=== PATIENT | male | born 1940 | race Caucasian/White ===

== ENCOUNTER 2021-01-29 09:02 | Outpatient (CLI) | payer MEDICARE, OTHER | END 2021-01-29 09:03 | disposition EMS.NT | LOC: EMS 09:02 | DX: R05 Cough (principal); R53.83 Other fatigue; R19.7 Diarrhea, unspecified; Z20.822 Contact with and (suspected) exposure to COVID-19 ==

== ENCOUNTER 2021-01-29 15:43 | Outpatient (CLI) | payer MEDICARE, OTHER | END 2021-01-29 15:44 | disposition critical access hospital (66) | LOC: EMS 15:43 | DX: R50.9 Fever, unspecified (principal); R05 Cough; R53.83 Other fatigue; R19.7 Diarrhea, unspecified; Z20.822 Contact with and (suspected) exposure to COVID-19 | CPT/HCPCS: A0425; A0427 ==

== ENCOUNTER 2021-01-29 16:06 | Inpatient (IN) | payer MEDICARE, OTHER ==
[2021-01-29] MEDS ORDERED: ONDANSETRON 4 MG/2 ML VIAL IVP STA (16:15)
[2021-01-29] MEDS ORDERED: DEXAMETHASONE 10 MG/ML VIAL IVP STA (16:15)
--- NOTE | 2021-01-29 16:15 | ED Physician Documentation ---
PD HPI DYSPNEA - Stated complaint Stated Complaint: C+/COUGH - History obtained from History obtained from: Patient - Additional information Additional information: Mr. Philippe is an 80-year-old gentleman originally from the [place] but c urrently lives in [facility]. He was immunized back in July with Mariano & Mariano vaccine. Presents today with likely Covid as his whole family has it. He has not been formally tested. Has been symptomatic for 5 days with shortness of breath, nausea, aches, inability to eat and poor appetite. He is so weak now that he can barely get up and go to the bathroom. He has a history of CHF but is not currently taking any medications for it. Review of Systems Ten Systems: 10 systems reviewed and negative Constitutional: reports: Fever, Chills, Myalgias, Fatigue Cardiac: denies: Chest pain / pressure, Palpitations Respiratory: reports: Dyspnea, Cough. denies: Hemoptysis, Wheezing PD PAST MEDICAL HISTORY - Past Medical History Past Medical History: Yes Cardiovascular: Congestive heart failure - Present Medications Home Medications: Ambulatory Orders Medication Instructions Recorded Confirmed No Known Home Medications 01/29/21 01/29/21 - Allergies Allergies/Adverse Reactions: Allergies Allergy/AdvReac Type Severity Reaction Status Date / Time vancomycin Allergy Rash Verified 01/29/21 16:11 - Living Situation Living Situation: reports: With spouse/s.o. - Social History Does the pt smoke?: No Does the pt have substance abuse?: No - Family History Family history: reports: Non contributory PD ED PE NORMAL - Vitals Vital signs reviewed: Yes (Febrile and hypoxemic) - General General: Alert and oriented X 3, Other (appears ill, weak) - HEENT HEENT: PERRL, EOMI - Neck Neck: Supple, no meningeal sign, No bony TTP - Cardiac Cardiac: RRR, No murmur - Respiratory Respiratory: No respiratory distress, Clear bilaterally - Abdomen Abdomen: Non tender - Back Back: No CVA TTP, No spinal TTP - Derm Derm: Normal color, Warm and dry - Neuro Neuro: Alert and oriented X 3, Normal speech - Psych Psych: Normal mood, Normal affect Results - Vitals Vitals: Vital Signs - 24 hr 01/29/21 01/29/21 16:12 16:18 Temperature 38.7 C H Heart Rate 60 65 Respiratory 22 17 Rate Blood Pressure 127/89 H 109/60 O2 Saturation 89 L 96 Oxygen O2 Source Nasal cannula Oxygen Flow Rate 2 - EKG (time done) 1621 Rate: Rate (enter#) (60) Rhythm: Atrial fibrillation [place]: LAD QRS: Normal Ischemia: Non specific changes. No: ST elevation c/w ischemia, ST depression - Labs Labs: Laboratory Tests 01/29/21 01/29/21 01/29/21 16:35 16:35 16:35 WBC 5.3 RBC 4.07 L Hgb 13.8 L Hct 40.2 L MCV 98.8 H MCH 33.9 H MCHC 34.3 RDW 13.0 Plt Count 142 MPV 10.1 Neut # (Auto) 4.3 Lymph # (Auto) 0.7 L [place] # (Auto) 0.3 Eos # (Auto) 0.0 Baso # (Auto) 0.0 Absolute Nucleated RBC 0.00 Nucleated RBC % 0.0 D-Dimer 348.8 H Sodium 133 L Potassium 3.9 Chloride 94 L Carbon Dioxide 27 Anion Gap 12.0 BUN 42 H Creatinine 1.2 Estimated GFR (MDRD) 58 L Glucose 118 H Lactic Acid Calcium 8.9 Total Bilirubin 0.6 AST 59 H ALT 27 Alkaline Phosphatase 37 L Total Protein 7.2 Albumin 3.7 Globulin 3.5 Albumin/Globulin Ratio 1.1 Nasal Adenovirus (PCR) Nasal B. parapertussis DNA (PCR) Nasal Coronavir 229E PCR Nasal Coronavir HKU1 PCR Nasal Coronavir NL63 PCR Nasal Coronavir OC43 PCR Nasal Enterovir/Rhinovir PCR Nasal Influenza B PCR Nasal Parainfluen 1 PCR Nasal Parainfluen 2 PCR Nasal Parainfluen 3 PCR Nasal Parainfluen 4 PCR Nasal RSV (PCR) Nasal B.pertussis DNA PCR Nasal C.pneumoniae (PCR) Aaron Human Metapneumo PCR Nasal M.pneumoniae (PCR) Nasal SARS-CoV-2 (PCR) 01/29/21 01/29/21 16:35 16:43 WBC RBC Hgb Hct MCV MCH MCHC RDW Plt Count MPV Neut # (Auto) Lymph # (Auto) [place] # (Auto) Eos # (Auto) Baso # (Auto) Absolute Nucleated RBC Nucleated RBC % D-Dimer Sodium Potassium Chloride Carbon Dioxide Anion Gap BUN Creatinine Estimated GFR (MDRD) Glucose Lactic Acid 1.8 Calcium Total Bilirubin AST ALT Alkaline Phosphatase Total Protein Albumin Globulin Albumin/Globulin Ratio Nasal Adenovirus (PCR) NOT DETECTED Nasal B. parapertussis DNA (PCR) NOT DETECTED Nasal Coronavir 229E PCR NOT DETECTED Nasal Coronavir HKU1 PCR NOT DETECTED Nasal Coronavir NL63 PCR NOT DETECTED Nasal Coronavir OC43 PCR NOT DETECTED Nasal Enterovir/Rhinovir PCR NOT DETECTED Nasal Influenza B PCR NOT DETECTED Nasal Parainfluen 1 PCR NOT DETECTED Nasal Parainfluen 2 PCR NOT DETECTED Nasal Parainfluen 3 PCR NOT DETECTED Nasal Parainfluen 4 PCR NOT DETECTED Nasal RSV (PCR) NOT DETECTED Nasal B.pertussis DNA PCR NOT DETECTED Nasal C.pneumoniae (PCR) NOT DETECTED Aaron Human Metapneumo PCR NOT DETECTED Nasal M.pneumoniae (PCR) NOT DETECTED Nasal SARS-CoV-2 (PCR) DETECTED A - Rads (name of study) 1v chest Radiology: EMP read contemporaneously (patchy bilateral infiltrates c/w covid pna) PD MEDICAL DECISION MAKING - ED course ED course: 80-year-old gentleman with heavy contact to Covid presents with typical symptoms and hypoxemia. He was immunized, with Mariano & Mariano back in July. He was given Decadron and Zofran here. Chest x-ray typical for Covid. Spoke with Dr. Rojas for admission given hypoxemia at 5:10 PM. Departure - Departure Disposition: 66 [facility] DC/Xfer Clinical Impression: COVID-19, Hypoxemia Condition: Serious
[2021-01-29 16:44] LABS: BASOPHILS % (AUTO) 0.2 %; HCT - HEMATOCRIT 40.2 % (42.0-52.0); HGB - HEMOGLOBIN 13.8 g/dL (14.0-18.0); LYMPHOCYTES # (AUTO) 0.7 10^3/uL (1.5-3.5); LYMPHOCYTES % (AUTO) 12.9 %; MEAN CORPUSCULAR HEMOGLOBIN 33.9 pg (27.0-31.0); MEAN CORPUSCULAR HGB CONC 34.3 g/dL (32.0-36.0); MEAN CORPUSCULAR VOLUME 98.8 fL (80.0-94.0); MEAN PLATELET VOLUME 10.1 fL (7.4-11.4); MONOCYTES # (AUTO) 0.3 10^3/uL (0.0-1.0); MONOCYTES % (AUTO) 4.8 %; NEUTROPHILS # (AUTO) 4.3 10^3/uL (1.5-6.6); NEUTROPHILS % (AUTO) 81.7 %; PLT - PLATELET COUNT 142 10^3/uL (130-450); RED BLOOD COUNT 4.07 10^6/uL (4.70-6.10); WHITE BLOOD COUNT 5.3 x10^3/uL (4.8-10.8)
[2021-01-29] MEDS ORDERED: ACETAMINOPHEN 325 MG TABLET PO STA (16:44)
[2021-01-29 16:52] LABS: ALBUMIN 3.7 g/dL (3.2-5.5); ALBUMIN/GLOBULIN RATIO 1.1 (1.0-2.2); BILIRUBIN,TOTAL 0.6 mg/dL (0.2-1.0); CALCIUM 8.9 mg/dL (8.5-10.3); CREATININE 1.2 mg/dL (0.6-1.2); POTASSIUM 3.9 mmol/L (3.5-5.0); TOTAL PROTEIN 7.2 g/dL (6.7-8.2)
--- NOTE | 2021-01-29 16:55 | XRAY Report ---
PROCEDURE: Chest 1 View X-Ray INDICATIONS: dyspnea TECHNIQUE: One view of the chest was acquired. COMPARISON: None FINDINGS: Surgical changes and devices: None. Lungs and pleura: No pleural effusions or pneumothorax. Patchy bilateral interstitial type infiltra jg are seen. Mediastinum: The aorta is prominent and tortuous. The cardiac contours are within normal limits. Bones and chest wall: No suspicious bony lesions. Age-appropriate degenerative changes are seen. Overlying soft tissues appear unremarkable. IMPRESSION: Bilateral patchy infiltrates are seen, which are consistent with the known clinical history of COVID pneumonia. Reviewed by: Edmund Hahn MD on 01/29/2021 3:54 PM [facility] Approved by: Edmund Hahn MD on 01/29/2021 3:54 PM [facility] Station ID: [id number]
[2021-01-29] MEDS ORDERED: ONDANSETRON ODT 4 MG TABLET TL PRN (17:09)
[2021-01-29] MEDS ORDERED: PROCHLORPERAZINE 10 MG/2 ML VIAL IVP PRN (17:09)
[2021-01-29] MEDS ORDERED: ONDANSETRON 4 MG/2 ML VIAL IVP PRN (17:09)
[2021-01-29] MEDS ORDERED: NON FORMULARY MED (Remdesivir 200 MG) IVP ONE (17:12)
[2021-01-29] MEDS ORDERED: ALBUTEROL NEB 2.5 MG/3 ML INH PRN (17:13)
[2021-01-29 17:50] LABS: CORONAVIRUS 229E-RESP PCR NOT DETECTED; CORONAVIRUS HKU1-RESP PCR NOT DETECTED; CORONAVIRUS NL63-RESP PCR NOT DETECTED; CORONAVIRUS OC43-RESP PCR NOT DETECTED
[2021-01-29 17:52] LABS: B. PARAPERTUSSIS- RESP PCR PAN NOT DETECTED; B. PERTUSSIS- RESP PCR PANEL NOT DETECTED; C. PNEUMONIAE- RESP PCR PANEL NOT DETECTED; HUMAN METAPNEUMOVIRUS NOT DETECTED; INFLUENZA B - RESP PCR PANEL NOT DETECTED; M. PNEUMONIAE- RESP PCR PANEL NOT DETECTED; PARAINFLUENZA VIRUS 1 NOT DETECTED; PARAINFLUENZA VIRUS 2 NOT DETECTED; PARAINFLUENZA VIRUS 3 NOT DETECTED; PARAINFLUENZA VIRUS 4 NOT DETECTED; RHINOVIRUS/ENTEROVIRUS NOT DETECTED; RSV- RESP PCR PANEL NOT DETECTED; SARS-CoV-2 -RESP PCR PANEL DETECTED
[2021-01-29] MEDS ORDERED: LACTATED RINGERS 1,000 ML IV SCH (18:00)
[2021-01-29] MEDS ORDERED: LACTATED RINGERS 1,000 ML IV ONE (18:12)
[2021-01-29] MEDS: SODIUM CHLORIDE FLUSH 0.9% 10 ML SYRINGE IVP PRN (18:39)
--- NOTE | 2021-01-29 18:55 | HISTORY & PHYSICAL EXAMINATION ---
Chief Complaint - Chief Complaint Chief Complaint: cough and sob History of Present Illness - Admitted From Admitted From:: Nephew's house - History Obtained From Records Reviewed: [facility] History obtained from: Patient Exam Limitations: none - History of Present Illness HPI Comment/Other: He says that he is completely healthy and has no major medical issues. His blood pressure tends to run low. He does not even take any medicines. His primary care provider is Gómez Shelby who is in private practice with his Susan. They are out of [facility]. They drove her from [place] to see his 's family. His [id number] and [id number] live in [place]. They did not send any hotels in the drove straight through. Stopped only to get past to 3 windows. They arrived at their ytxbve-hh-lov's house and were doing well until 7 days ago. His became ill first. Then he did 5 days ago. Cough, fever, myalgias, shortness of breath. Lack of appetite. No smell. Now all of them are sick. Both brother and dcobrt-tf-zxi. , nephew. He is so weak that he can barely get up and go to the bathroom. "I never felt like an old man until now". He has been vaccinated with Mariano and Mariano back in July of this year. There is been no change in bowel habits. There is no diarrhea. There is no hemoptysis. No flank pain, urgency, frequency, dysuria or hematuria. In the emergency room his temperature was 38.7. Heart rate 60. Respirations 22. Blood pressure 127/89. He is 89% saturated on room air. His lungs are clear bilaterally. He is in atrial fibrillation. White cell count is 5.3. Hemoglobin 13.8. D-dimer is 348. Sodium 133. BUN 42, creatinine 1.2. AST is 59. SARS COVID-19 is detected. Chest x-ray has patchy bilateral infiltrates consistent with known clinical history of Covid pneumonia. In the emergency room he received Decadron and Zofran. History - Past Medical History Cardiovascular: reports: Congestive heart failure - Family & Social History Family History Comment/Other: His mother at age 96 with every "known ill man in the world. Father at age 80 with no illness whatsoever. He thought that was very ironic. 3 brothers and 1 sister. 1 brother is from prostate cancer. The other siblings are alive and well in the [place] without any major medical illnesses much like him. 3 children from his first . They all live in the [place]. They are healthy. Living arrangement: At home Living Situation: With spouse/s.o. Social History Notes: He was born and raised in the [place]. Came to the [place] with his first . That marriage did not last but he did have 3 children with her. He remarried and went back to the [place] but his was so miserable without her family and daughter nearby that they came back to [facility]. 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 They eventually ended up living in [facility]. He never had a history of alcohol abuse. No history of recreational substance abuse. Started smoking around the age of 12 and quit in 1970 and no more than half a pack per day. - Substance History Use: Uses substance without health or social issues: NONE Abuse: Recurrent use of substance despite neg consequences: NONE Dependence: Experiences withdrawal or developed tolerances: NONE - POLST Patient has POLST: No POLST Status: Full Code Meds/Allgy - Home Medications Home Medications: Ambulatory Orders Medication Instructions Recorded Confirmed No Known Home Medications 01/29/21 01/29/21 - Allergies Allergies/Adverse Reactions: Allergies Allergy/AdvReac Type Severity Reaction Status Date / Time vancomycin Allergy Rash Verified 01/29/21 16:11 Review of Systems - Other Findings Other Findings: 13 point review of systems done as in our EMR template. Only pertinent positives are in the history of present illness Prior Level of Functionality: Completely independent. He states that he does not use durable medical equipment. Drives. Pays bills. Helps his clean house. Cooks, cleans. He is very distressed at how weak and ill he is right now. Exam - Vital Signs Reviewed Vital Signs: Yes Vital Signs: Vital Signs x48h Temp Pulse Pulse Resp BP BP Pulse Ox 01/29/21 18:13 36.8 C 64 24 108/70 96 01/29/21 18:00 38.5 C H 75 17 99/65 95 01/29/21 16:18 65 17 109/60 96 01/29/21 16:12 38.7 C H 60 22 127/89 H 89 L - Physical Exam General Appearance: positive: Alert, Mild distress (From chills, and severe fatigue. He can barely sit up and help the nurse take off his shoes), Other (Tall lanky white male who looks stated age) Eyes Bilateral: positive: PERRL, EOMI ENT: positive: No signs of dehydration, Other (Rhinorrhea, postnasal drip) Neck: positive: No JVD. negative: Stiff neck Respiratory: positive: No respiratory distress, Rales (Fine rales in the right midlung field and left lower lung base. But no increased respiratory effort. No cough.) Cardiovascular: positive: Regular rate & rhythm, Systolic murmur. negative: Gallop/S4, Friction rub Peripheral Pulses: positive: 1+ Abdomen: positive: Non-tender, No organomegaly, Nml bowel sounds, No distention Skin: positive: Warm, Dry, Pallor Extremities: positive: Full ROM, No pedal edema (But he has large ropey varicose veins of the lower extremity. No venous stasis changes) Neurologic/Psychiatric: positive: Oriented x3, CN's nml (2-12), Motor nml, Sensa tion nml Conclusion/Plan - Problem List (1) COVID-19 Conclusion/Plan: An unvaccinated gentleman who has no major medical issues except a remote history of congestive heart failure that he takes no medicines for. Plan: Inpatient status Remdesivir protocol Decadron DVT prophylaxis Antipyretics and antiemetics as needed (2) Hypoxemia Conclusion/Plan: Supplemental nasal cannula oxygen. He is a full code. If need be we will progress to BiPAP and intubation - Lab Results Lab results reviewed: Yes Fish Bones: 01/29/21 16:35 01/29/21 16:35 - Diagnostic Imaging Results Diagnostic Imaging Results: positive: Final report reviewed Diagnostic Imaging Results Comments: Report as in history of present illness Core Measures - Anticipated LOS I expect patient to be DC'd or transferred within 96 hours.: Yes - DVT/VTE - Prophylaxis VTE/DVT Device ordered at admit?: Yes
[2021-01-29] MEDS ORDERED: REMDESIVIR 100MG VIAL 200 MG in SODIUM CHLORIDE 0.9% 250 ML IV ONE (19:00)
[2021-01-30] MEDS: BENZOCAINE/MENTHOL LOZENGE MM PRN ×2 (04:46→04:54)
[2021-01-30] MEDS: SODIUM CHLORIDE FLUSH 0.9% 10 ML SYRINGE IVP SCH ×3 (05:53→23:35)
[2021-01-30 06:15] LABS: BASOPHILS % (AUTO) 0.2 %; HCT - HEMATOCRIT 39.2 % (42.0-52.0); HGB - HEMOGLOBIN 13.1 g/dL (14.0-18.0); LYMPHOCYTES # (AUTO) 0.5 10^3/uL (1.5-3.5); LYMPHOCYTES % (AUTO) 9.8 %; MEAN CORPUSCULAR HEMOGLOBIN 32.9 pg (27.0-31.0); MEAN CORPUSCULAR HGB CONC 33.4 g/dL (32.0-36.0); MEAN CORPUSCULAR VOLUME 98.5 fL (80.0-94.0); MEAN PLATELET VOLUME 10.1 fL (7.4-11.4); MONOCYTES # (AUTO) 0.2 10^3/uL (0.0-1.0); MONOCYTES % (AUTO) 4.5 %; NEUTROPHILS # (AUTO) 4.5 10^3/uL (1.5-6.6); NEUTROPHILS % (AUTO) 85.3 %; PLT - PLATELET COUNT 129 10^3/uL (130-450); RED BLOOD COUNT 3.98 10^6/uL (4.70-6.10); WHITE BLOOD COUNT 5.3 x10^3/uL (4.8-10.8)
[2021-01-30 06:30] LABS: CALCIUM 8.2 mg/dL (8.5-10.3); CRP - C-REACTIVE PROTEIN 10.6 mg/dL (0-1.0); POTASSIUM 4.2 mmol/L (3.5-5.0)
--- NOTE | 2021-01-30 06:59 | PHARMACY PROGRESS NOTE ---
- Best Possible Medication History Admit Date and Time: 01/29/21 6800 Processed by: Nursing Medication History completed: Yes Patient Interview: Completed As the person ultimately responsible for medication therapy, providers are able to order a medication from an existing home medication list in [facility] via the "Reconcile Routine" prior to Confirmation of that medication by direct support professional caregiver. Such practice is discouraged except when the physician, in their clinical judg ment, deems that a medical need exists for a medication without regard to previous use.
[2021-01-30] MEDS: ALBUTEROL 1 PUFF INH PRN ×4 (08:48→18:48)
[2021-01-30] MEDS: DEXAMETHASONE 4 MG/ML VIAL IVP SCH (09:32)
[2021-01-30] MEDS: ENOXAPARIN 40 MG/0.4 ML SYRINGE SUBQ SCH (09:32)
[2021-01-30] MEDS: REMDESIVIR 100MG VIAL 100 MG in SODIUM CHLORIDE 0.9% 100ML 100 ML IV SCH (09:33)
--- NOTE | 2021-01-30 14:10 | PROVIDER PROGRESS NOTE ---
Subjective - Prog Note Date Prog Note Date: 01/30/21 Prog Note Time: 14:08 - Subjective Pt reports feeling: No change Subjective: He is very dismayed at how weak and tired he is. No appetite. On review of systems still has shortness of breath, weakness, fatigue, but no fever since yesterday. No or GI complaints other than anorexia. Denies chest pain. Pedal edema. He was on 3 L nasal cannula when he first came to [facility]. By late evening into the academic coach hours of today he is on 2 L. Current Medications - Current Medications Current Medications: Active Medications Acetaminophen (Acetaminophen 325 Mg Tablet) 650 mg PO Q4HR PRN PRN Reason: Pain 1 to 4 Albuterol (Albuterol 1 Puff) 2 puffs INH Q4HR PRN PRN Reason: Wheezing Last Admin: 01/30/21 11:28 Dose: 2 puffs Documented by: Dexamethasone (Dexamethasone 4 Mg/Ml Vial) 6 mg IVP DAILY [facility] Last Admin: 01/30/21 09:32 Dose: 6 mg Documented by: Enoxaparin Sodium (Enoxaparin 40 Mg/0.4 Ml Syringe) 40 mg SUBQ DAILY [facility] Last Admin: 01/30/21 09:32 Dose: 40 mg Documented by: Remdesivir 100 mg/ Sodium (Chloride) 100 mls @ 200 mls/hr IV DAILY [facility] Stop: 02/02/21 09:29 Last Admin: 01/30/21 09:33 Dose: 200 mls/hr Documented by: Ondansetron HCl (Ondansetron Odt 4 Mg Tablet) 4 mg TL Q6HR PRN PRN Reason: Nausea / Vomiting Ondansetron HCl (Ondansetron 4 Mg/2 Ml Vial) 4 mg IVP Q6HR PRN PRN Reason: Nausea / Vomiting Oxycodone HCl (Oxycodone 5 Mg Tablet) 5 mg PO Q4HR PRN PRN Reason: Pain 5 to 7 Prochlorperazine Edisylate (Prochlorperazine 10 Mg/2 Ml Vial) 10 mg IVP Q6HR PRN PRN Reason: Nausea / Vomiting Sodium Chloride (Sodium Chloride Flush 0.9% 10 Ml Syringe) 10 ml IVP PRN PRN PRN Reason: NEEDED PER PROVIDER ORDERS Last Admin: 01/29/21 18:39 Dose: 10 ml Documented by: Sodium Chloride (Sodium Chloride Flush 0.9% 10 Ml Syringe) 10 ml IVP 0100,0900,1700 GEORGIE Last Admin: 01/30/21 09:35 Dose: 10 ml Documented by: Throat Lozenges (Benzocaine/Menthol Lozenge) 1 lozenge MM Q2HR PRN PRN Reason: Throat pain Last Admin: 01/30/21 04:54 Dose: 1 lozenge Documented by: No Known Home Medications 01/29/21 Objective - Vital Signs/Intake & Output Reviewed Vital Signs: Yes Vital Signs: Vital Signs x48h Temp Pulse Pulse Resp BP Pulse Ox 01/30/21 11:29 66 20 01/30/21 09:43 36.5 C 70 22 128/81 H 94 01/30/21 08:51 74 18 Intake & Output: Intake & Output 01/27/21 01/28/21 01/29/21 01/30/21 23:59 23:59 23:59 23:59 Intake Total 613.333 530 Output Total 50 Balance 563.333 530 - Objective General Appearance: positive: Alert, Other (78 kg, 6 foot tall. Fatigued appearing elderly gentleman.) Eyes Bilateral: positive: PERRL, EOMI ENT: positive: No signs of dehydration Neck: positive: No JVD. negative: Stiff neck Respiratory: positive: No respiratory distress, Rales. negative: Wheezes, Rhonchi Cardiovascular: positive: Regular rate & rhythm, Systolic murmur. negative: Gallop/S4, Friction rub Abdomen: positive: Non-tender, No organomegaly, Nml bowel sounds, No distention Skin: positive: Warm, Dry, Pallor Extremities: positive: Full ROM, No pedal edema Neurologic/Psychiatric: positive: Oriented x3, CN's nml (2-12), Motor nml - Lab Results Fish Bones: 01/30/21 05:57 01/30/21 05:57 Other Labs: Lab Results x24hrs 01/30/21 01/30/21 01/29/21 Range/Units 05:57 05:57 16:43 WBC 5.3 (4.8-10.8) x10^3/uL RBC 3.98 L (4.70-6.10) 10^6/uL Hgb 13.1 L (14.0-18.0) g/dL Hct 39.2 L (42.0-52.0) % MCV 98.5 H (80.0-94.0) fL MCH 32.9 H (27.0-31.0) pg MCHC 33.4 (32.0-36.0) g/dL RDW 13.0 (12.0-15.0) % Plt Count 129 L (130-450) 10^3/uL MPV 10.1 (7.4-11.4) fL Neut # (Auto) 4.5 (1.5-6.6) 10^3/uL Lymph # (Auto) 0.5 L (1.5-3.5) 10^3/uL [place] # (Auto) 0.2 (0.0-1.0) 10^3/uL Eos # (Auto) 0.0 (0.0-0.7) 10^3/uL Baso # (Auto) 0.0 (0.0-0.1) 10^3/uL Absolute Nucleated RBC 0.00 x10^3/uL Nucleated RBC % 0.0 /100WBC D-Dimer (200.0-255.0) ng/mL Sodium 132 L (135-145) mmol/L Potassium 4.2 (3.5-5.0) mmol/L Chloride 98 L (101-111) mmol/L Carbon Dioxide 24 (21-32) mmol/L Anion Gap 10.0 (6-13) BUN 37 H (6-20) mg/dL Creatinine 1.0 (0.6-1.2) mg/dL Estimated GFR (MDRD) 72 L (>89) Glucose 157 H (70-100) mg/dL Lactic Acid (0.5-2.2) mmol/L Calcium 8.2 L (8.5-10.3) mg/dL Total Bilirubin (0.2-1.0) mg/dL AST (10-42) IU/L ALT (10-60) IU/L Alkaline Phosphatase (42-121) IU/L C-Reactive Protein 10.6 H (0-1.0) mg/dL Total Protein (6.7-8.2) g/dL Albumin (3.2-5.5) g/dL Globulin (2.1-4.2) g/dL Albumin/Globulin Ratio (1.0-2.2) Nasal Adenovirus (PCR) NOT DETECTED Nasal B. parapertussis DNA (PCR) NOT DETECTED Nasal Coronavir 229E PCR NOT DETECTED Nasal Coronavir HKU1 PCR NOT DETECTED Nasal Coronavir NL63 PCR NOT DETECTED Nasal Coronavir OC43 PCR NOT DETECTED Nasal Enterovir/Rhinovir PCR NOT DETECTED Nasal Influenza B PCR NOT DETECTED Nasal Parainfluen 1 PCR NOT DETECTED Nasal Parainfluen 2 PCR NOT DETECTED Nasal Parainfluen 3 PCR NOT DETECTED Nasal Parainfluen 4 PCR NOT DETECTED Nasal RSV (PCR) NOT DETECTED Nasal B.pertussis DNA PCR NOT DETECTED Nasal C.pneumoniae (PCR) NOT DETECTED Aaron Human Metapneumo PCR NOT DETECTED Nasal M.pneumoniae (PCR) NOT DETECTED Nasal SARS-CoV-2 (PCR) DETECTED A 01/29/21 01/29/21 01/29/21 Range/Units 16:35 16:35 16:35 WBC (4.8-10.8) x10^3/uL RBC (4.70-6.10) 10^6/uL Hgb (14.0-18.0) g/dL Hct (42.0-52.0) % MCV (80.0-94.0) fL MCH (27.0-31.0) pg MCHC (32.0-36.0) g/dL RDW (12.0-15.0) % Plt Count (130-450) 10^3/uL MPV (7.4-11.4) fL Neut # (Auto) (1.5-6.6) 10^3/uL Lymph # (Auto) (1.5-3.5) 10^3/uL [place] # (Auto) (0.0-1.0) 10^3/uL Eos # (Auto) (0.0-0.7) 10^3/uL Baso # (Auto) (0.0-0.1) 10^3/uL Absolute Nucleated RBC x10^3/uL Nucleated RBC % /100WBC D-Dimer 348.8 H (200.0-255.0) ng/mL Sodium 133 L (135-145) mmol/L Potassium 3.9 (3.5-5.0) mmol/L Chloride 94 L (101-111) mmol/L Carbon Dioxide 27 (21-32) mmol/L Anion Gap 12.0 (6-13) BUN 42 H (6-20) mg/dL Creatinine 1.2 (0.6-1.2) mg/dL Estimated GFR (MDRD) 58 L (>89) Glucose 118 H (70-100) mg/dL Lactic Acid 1.8 (0.5-2.2) mmol/L Calcium 8.9 (8.5-10.3) mg/dL Total Bilirubin 0.6 (0.2-1.0) mg/dL AST 59 H (10-42) IU/L ALT 27 (10-60) IU/L Alkaline Phosphatase 37 L (42-121) IU/L C-Reactive Protein (0-1.0) mg/dL Total Protein 7.2 (6.7-8.2) g/dL Albumin 3.7 (3.2-5.5) g/dL Globulin 3.5 (2.1-4.2) g/dL Albumin/Globulin Ratio 1.1 (1.0-2.2) Nasal Adenovirus (PCR) Nasal B. parapertussis DNA (PCR) Nasal Coronavir 229E PCR Nasal Coronavir HKU1 PCR Nasal Coronavir NL63 PCR Nasal Coronavir OC43 PCR Nasal Enterovir/Rhinovir PCR Nasal Influenza B PCR Nasal Parainfluen 1 PCR Nasal Parainfluen 2 PCR Nasal Parainfluen 3 PCR Nasal Parainfluen 4 PCR Nasal RSV (PCR) Nasal B.pertussis DNA PCR Nasal C.pneumoniae (PCR) Aaron Human Metapneumo PCR Nasal M.pneumoniae (PCR) Nasal SARS-CoV-2 (PCR) 01/29/21 Range/Units 16:35 WBC 5.3 (4.8-10.8) x10^3/uL RBC 4.07 L (4.70-6.10) 10^6/uL Hgb 13.8 L (14.0-18.0) g/dL Hct 40.2 L (42.0-52.0) % MCV 98.8 H (80.0-94.0) fL MCH 33.9 H (27.0-31.0) pg MCHC 34.3 (32.0-36.0) g/dL RDW 13.0 (12.0-15.0) % Plt Count 142 (130-450) 10^3/uL MPV 10.1 (7.4-11.4) fL Neut # (Auto) 4.3 (1.5-6.6) 10^3/uL Lymph # (Auto) 0.7 L (1.5-3.5) 10^3/uL [place] # (Auto) 0.3 (0.0-1.0) 10^3/uL Eos # (Auto) 0.0 (0.0-0.7) 10^3/uL Baso # (Auto) 0.0 (0.0-0.1) 10^3/uL Absolute Nucleated RBC 0.00 x10^3/uL Nucleated RBC % 0.0 /100WBC D-Dimer (200.0-255.0) ng/mL Sodium (135-145) mmol/L Potassium (3.5-5.0) mmol/L Chloride (101-111) mmol/L Carbon Dioxide (21-32) mmol/L Anion Gap (6-13) BUN (6-20) mg/dL Creatinine (0.6-1.2) mg/dL Estimated GFR (MDRD) (>89) Glucose (70-100) mg/dL Lactic Acid (0.5-2.2) mmol/L Calcium (8.5-10.3) mg/dL Total Bilirubin (0.2-1.0) mg/dL AST (10-42) IU/L ALT (10-60) IU/L Alkaline Phosphatase (42-121) IU/L C-Reactive Protein (0-1.0) mg/dL Total Protein (6.7-8.2) g/dL Albumin (3.2-5.5) g/dL Globulin (2.1-4.2) g/dL Albumin/Globulin Ratio (1.0-2.2) Nasal Adenovirus (PCR) Nasal B. parapertussis DNA (PCR) Nasal Coronavir 229E PCR Nasal Coronavir HKU1 PCR Nasal Coronavir NL63 PCR Nasal Coronavir OC43 PCR Nasal Enterovir/Rhinovir PCR Nasal Influenza B PCR Nasal Parainfluen 1 PCR Nasal Parainfluen 2 PCR Nasal Parainfluen 3 PCR Nasal Parainfluen 4 PCR Nasal RSV (PCR) Nasal B.pertussis DNA PCR Nasal C.pneumoniae (PCR) Aaron Human Metapneumo PCR Nasal M.pneumoniae (PCR) Nasal SARS-CoV-2 (PCR) ABX Reporting Has patient been on IV antibiotics over the past 48 hours?: No Assessment/Plan - Problem List (1) COVID-19 Impression: An unvaccinated gentleman who has no major medical issues except a remote history of congestive heart failure that he takes no medicines for. Plan: Remdesivir protocol Day #2/ Decadron #2/10 DVT prophylaxis to continue Antipyretics and antiemetics as needed (2) Hypoxemia Conclusion/Plan: Supplemental nasal cannula oxygen. He is a full code. If need be we will progress to BiPAP and intubation
[2021-01-31] MEDS ORDERED: diphenhydrAMINE INJ 50 MG/ML VIAL IVP STA (00:12)
[2021-01-31] MEDS: SODIUM CHLORIDE FLUSH 0.9% 10 ML SYRINGE IVP SCH ×3 (00:24→16:38)
[2021-01-31 05:32] LABS: BASOPHILS % (AUTO) 0.1 %; HCT - HEMATOCRIT 37.7 % (42.0-52.0); LYMPHOCYTES # (AUTO) 0.6 10^3/uL (1.5-3.5); LYMPHOCYTES % (AUTO) 7.1 %; MEAN CORPUSCULAR HEMOGLOBIN 33.5 pg (27.0-31.0); MEAN CORPUSCULAR HGB CONC 34.5 g/dL (32.0-36.0); MEAN CORPUSCULAR VOLUME 97.2 fL (80.0-94.0); MEAN PLATELET VOLUME 10.3 fL (7.4-11.4); MONOCYTES # (AUTO) 0.4 10^3/uL (0.0-1.0); NEUTROPHILS # (AUTO) 7.6 10^3/uL (1.5-6.6); NEUTROPHILS % (AUTO) 87.5 %; PLT - PLATELET COUNT 152 10^3/uL (130-450); RED BLOOD COUNT 3.88 10^6/uL (4.70-6.10); RED CELL DISTRIBUTION WIDTH 13.2 % (12.0-15.0); WHITE BLOOD COUNT 8.7 x10^3/uL (4.8-10.8)
[2021-01-31 05:51] LABS: CALCIUM 8.7 mg/dL (8.5-10.3); CRP - C-REACTIVE PROTEIN 10.4 mg/dL (0-1.0); POTASSIUM 4.3 mmol/L (3.5-5.0)
[2021-01-31] MEDS: ALBUTEROL 1 PUFF INH PRN (08:51)
[2021-01-31] MEDS: DEXAMETHASONE 4 MG/ML VIAL IVP SCH (09:32)
[2021-01-31] MEDS: ENOXAPARIN 40 MG/0.4 ML SYRINGE SUBQ SCH (09:34)
[2021-01-31] MEDS: REMDESIVIR 100MG VIAL 100 MG in SODIUM CHLORIDE 0.9% 100ML 100 ML IV SCH (09:39)
--- NOTE | 2021-01-31 19:25 | PROVIDER PROGRESS NOTE ---
Progress Note January 31, 2021 7:22 PM Weak, tired. Trying to eat Ensure. Does not have much appetite. He is on 4 L nasal cannula and maintaining O2 sats at anywhere between 91 to 93%. Otherwise denies chest pain, abdominal pain, back pain, leg pain. No nausea or sweats. Medications: Tylenol, albuterol, Decadron, Lovenox, Zofran, oxycodone, Compazi ne, remdesivir, Cepacol. Temperature is 36.3. Pulse is 67. Blood pressure 109/68. Respirations 18. Lean lanky tall gentleman. Alert, oriented. Moderately to severely deaf. Neck is supple with shotty adenopathy. Lungs are clear to auscultation and percussion other than diffuse occasional faint crackles. They disappear with deep cough and then return. Regular rate and rhythm. Not tachycardic. No increased respiratory effort with talking to me. Abdomen is soft, nontender. Extremities without edema. BMP is normal. Random glucose 145. C-reactive protein is staying the same as yesterday and is 10.4. Not much rejection. White cell count is 8.7 with a hemoglobin of 13. Platelets are 152. Assessment/plan COVID-19 pneumonia. He is remdesivir day 3 out of 5. He is on Decadron grade 3 out of 10. DVT prophylaxis continues. Antipyretics and antiemetics are being used as needed. Hypoxia continues to be supplemented with nasal cannula oxygen. He is a DO NOT RESUSCITATE. I thought he was a full code but he wants to make sure that we note that he is DO NOT RESUSCITATE and that was put in the chart.
[2021-02-01 05:34] LABS: BASOPHILS % (AUTO) 0.1 %; HCT - HEMATOCRIT 36.7 % (42.0-52.0); HGB - HEMOGLOBIN 12.2 g/dL (14.0-18.0); LYMPHOCYTES # (AUTO) 0.6 10^3/uL (1.5-3.5); LYMPHOCYTES % (AUTO) 7.6 %; MEAN CORPUSCULAR HEMOGLOBIN 32.5 pg (27.0-31.0); MEAN CORPUSCULAR HGB CONC 33.2 g/dL (32.0-36.0); MEAN CORPUSCULAR VOLUME 97.9 fL (80.0-94.0); MEAN PLATELET VOLUME 10.6 fL (7.4-11.4); MONOCYTES # (AUTO) 0.6 10^3/uL (0.0-1.0); MONOCYTES % (AUTO) 7.8 %; NEUTROPHILS # (AUTO) 6.9 10^3/uL (1.5-6.6); NEUTROPHILS % (AUTO) 84.1 %; PLT - PLATELET COUNT 175 10^3/uL (130-450); RED BLOOD COUNT 3.75 10^6/uL (4.70-6.10); RED CELL DISTRIBUTION WIDTH 13.3 % (12.0-15.0); WHITE BLOOD COUNT 8.2 x10^3/uL (4.8-10.8)
[2021-02-01 05:47] LABS: CALCIUM 8.7 mg/dL (8.5-10.3); CRP - C-REACTIVE PROTEIN 9.5 mg/dL (0-1.0); POTASSIUM 4.7 mmol/L (3.5-5.0)
[2021-02-01] MEDS: SODIUM CHLORIDE FLUSH 0.9% 10 ML SYRINGE IVP SCH ×3 (07:29→17:20)
--- NOTE | 2021-02-01 09:04 | PROVIDER PROGRESS NOTE ---
Assessment/Plan - Problem List (1) Acute respiratory failure with hypoxia Assessment/Plan: Secondary to COVID-19 pneumonia. Currently on 4 L of oxygen via nasal cannula with oxygen saturation at 91% Patient is on remdesivir the 4 out of 5. On Decadron day 4 out of 10. Continue DVT prophylaxis with Lovenox 40 mg subcu daily. (2) COVID-19 Assessment/Plan: Currently on 4 L of oxygen via nasal cannula with oxygen saturation at 91% Patient is on remdesivir the 4 out of 5. On Decadron day 4 out of 10. Continue DVT prophylaxis with Lovenox 40 mg subcu daily. - Current Meds Current Meds: Current Medications Generic Name Dose Route Start Last Admin Trade Name Freq PRN Reason Stop Dose Admin Albuterol 2 puffs 01/30/21 08:37 01/31/21 08:51 Albuterol 1 Puff INH 2 puffs Q4HR PRN Administration Wheezing Dexamethasone 6 mg 01/30/21 09:00 01/31/21 09:32 Dexamethasone 4 Mg/Ml Vial IVP 6 mg DAILY GEORGIE Administration Enoxaparin Sodium 40 mg 01/30/21 09:00 01/31/21 09:34 Enoxaparin 40 Mg/0.4 Ml Syringe SUBQ 40 mg DAILY GEORGIE Administration Remdesivir 100 mg/ Sodium 100 mls @ 200 mls/hr 01/30/21 09:00 01/31/21 10:20 Chloride IV 02/02/21 09:29 Infused DAILY GEORGIE Infusion Ondansetron HCl 4 mg 01/29/21 17:09 01/30/21 22:04 Ondansetron Odt 4 Mg Tablet TL 4 mg Q6HR PRN Administration Nausea / Vomiting Sodium Chloride 10 ml 01/29/21 17:09 01/29/21 18:39 Sodium Chloride Flush 0.9% 10 Ml Syringe IVP 10 ml PRN PRN Administration NEEDED PER PROVIDER ORDERS Sodium Chloride 10 ml 01/30/21 01:00 02/01/21 07:29 Sodium Chloride Flush 0.9% 10 Ml Syringe IVP Not Given 0100,0900,1700 GEORGIE Throat Lozenges 1 lozenge 01/30/21 02:25 01/30/21 04:54 Benzocaine/Menthol Lozenge MM 1 lozenge Q2HR PRN Administration Throat pain - Lab Result Fish Bone Diagrams: 02/01/21 05:12 02/01/21 05:12 Subjective - Subjective Patient Reports: Other (Patient was up in bedside chair at time of exam. He complained of significant weakness and dyspnea. He also reported a productive cough. He denies chest pain, abdominal pain, nausea, fever or chills. He is on 4 L of oxygen via nasal cannula) Objective Vital Signs: Vital Signs - 24 hr 01/31/21 01/31/21 01/31/21 11:05 12:59 16:00 Temperature 36.3 C L Heart Rate [ 67 Brachial] Respiratory 18 Rate Blood Pressure 109/68 [Right Brachial artery] O2 Saturation 93 93 91 L 01/31/21 02/01/21 23:18 08:35 Temperature 36.2 C L 36.1 C L Heart Rate [ 53 L 52 L Brachial] Respiratory 22 24 Rate Blood Pressure 117/80 128/73 [Right Brachial artery] O2 Saturation 93 91 L Oxygen O2 Source Nasal cannula Oxygen Flow Rate 2 I&O (Last 24 Hrs): Intake and Output Totals x24h 01/30/21 01/31/21 02/01/21 23:59 23:59 23:59 Intake Total 2356.667 1694 Output Total 50 225 100 Balance 2306.667 1469 -100 General: Alert, Oriented x3, No acute distress HEENT: PERRLA, EOMI Neck: Supple, No JVD Neuro: Alert, Non Focal, Oriented Times 3 Cardiovascular: Regular rate, No murmurs Respiratory: Chest non-tender, Other (crackles on lung bases bilaterally) Abdomen: Normal bowel sounds, Soft, No tenderness, No masses Extremities: No clubbing, No cyanosis, No edema Skin: No rashes, No breakdown, No significant lesion - Results Results: Laboratory Results WBC 8.2 x10^3/uL (4.8-10.8) 02/01/21 05:12 RBC 3.75 10^6/uL (4.70-6.10) L 02/01/21 05:12 Hgb 12.2 g/dL (14.0-18.0) L 02/01/21 05:12 Hct 36.7 % (42.0-52.0) L 02/01/21 05:12 MCV 97.9 fL (80.0-94.0) H 02/01/21 05:12 MCH 32.5 pg (27.0-31.0) H 02/01/21 05:12 MCHC 33.2 g/dL (32.0-36.0) 02/01/21 05:12 RDW 13.3 % (12.0-15.0) 02/01/21 05:12 Plt Count 175 10^3/uL (130-450) 02/01/21 05:12 MPV 10.6 fL (7.4-11.4) 02/01/21 05:12 Neut # (Auto) 6.9 10^3/uL (1.5-6.6) H 02/01/21 05:12 Lymph # (Auto) 0.6 10^3/uL (1.5-3.5) L 02/01/21 05:12 [place] # (Auto) 0.6 10^3/uL (0.0-1.0) 02/01/21 05:12 Eos # (Auto) 0.0 10^3/uL (0.0-0.7) 02/01/21 05:12 Baso # (Auto) 0.0 10^3/uL (0.0-0.1) 02/01/21 05:12 Absolute Nucleated RBC 0.00 x10^3/uL 02/01/21 05:12 Nucleated RBC % 0.0 /100WBC 02/01/21 05:12 D-Dimer 348.8 ng/mL (200.0-255.0) H 01/29/21 16:35 Sodium 139 mmol/L (135-145) 02/01/21 05:12 Potassium 4.7 mmol/L (3.5-5.0) 02/01/21 05:12 Chloride 102 mmol/L (101-111) 02/01/21 05:12 Carbon Dioxide 27 mmol/L (21-32) 02/01/21 05:12 Anion Gap 10.0 (6-13) 02/01/21 05:12 BUN 47 mg/dL (6-20) H 02/01/21 05:12 Creatinine 1.0 mg/dL (0.6-1.2) 02/01/21 05:12 Estimated GFR (MDRD) 72 (>89) L 02/01/21 05:12 Glucose 134 mg/dL (70-100) H 02/01/21 05:12 Lactic Acid 1.8 mmol/L (0.5-2.2) 01/29/21 16:35 Calcium 8.7 mg/dL (8.5-10.3) 02/01/21 05:12 Total Bilirubin 0.6 mg/dL (0.2-1.0) 01/29/21 16:35 AST 59 IU/L (10-42) H 01/29/21 16:35 ALT 27 IU/L (10-60) 01/29/21 16:35 Alkaline Phosphatase 37 IU/L (42-121) L 01/29/21 16:35 C-Reactive Protein 9.5 mg/dL (0-1.0) H 02/01/21 05:12 Total Protein 7.2 g/dL (6.7-8.2) 01/29/21 16:35 Albumin 3.7 g/dL (3.2-5.5) 01/29/21 16:35 Globulin 3.5 g/dL (2.1-4.2) 01/29/21 16:35 Albumin/Globulin Ratio 1.1 (1.0-2.2) 01/29/21 16:35 Nasal Adenovirus (PCR) NOT DETECTED 01/29/21 16:43 Nasal B. parapertussis DNA (PCR) NOT DETECTED 01/29/21 16:43 Nasal Coronavir 229E PCR NOT DETECTED 01/29/21 16:43 Nasal Coronavir HKU1 PCR NOT DETECTED 01/29/21 16:43 Nasal Coronavir NL63 PCR NOT DETECTED 01/29/21 16:43 Nasal Coronavir OC43 PCR NOT DETECTED 01/29/21 16:43 Nasal Enterovir/Rhinovir PCR NOT DETECTED 01/29/21 16:43 Nasal Influenza B PCR NOT DETECTED 01/29/21 16:43 Nasal Parainfluen 1 PCR NOT DETECTED 01/29/21 16:43 Nasal Parainfluen 2 PCR NOT DETECTED 01/29/21 16:43 Nasal Parainfluen 3 PCR NOT DETECTED 01/29/21 16:43 Nasal Parainfluen 4 PCR NOT DETECTED 01/29/21 16:43 Nasal RSV (PCR) NOT DETECTED 01/29/21 16:43 Nasal B.pertussis DNA PCR NOT DETECTED 01/29/21 16:43 Nasal C.pneumoniae (PCR) NOT DETECTED 01/29/21 16:43 Aaron Human Metapneumo PCR NOT DETECTED 01/29/21 16:43 Nasal M.pneumoniae (PCR) NOT DETECTED 01/29/21 16:43 Nasal SARS-CoV-2 (PCR) DETECTED A 01/29/21 16:43 ABX Reporting Has patient been on IV antibiotics over the past 48 hours?: No
[2021-02-01] MEDS: DEXAMETHASONE 4 MG/ML VIAL IVP SCH (10:38)
[2021-02-01] MEDS: ENOXAPARIN 40 MG/0.4 ML SYRINGE SUBQ SCH (10:39)
[2021-02-01] MEDS: REMDESIVIR 100MG VIAL 100 MG in SODIUM CHLORIDE 0.9% 100ML 100 ML IV SCH (10:40)
[2021-02-01] MEDS: polyethylene glycoL 3350 17 GM PACKET PO SCH (10:43)
[2021-02-02] MEDS: oxyCODONE 5 MG TABLET PO PRN (01:34)
[2021-02-02] MEDS: SODIUM CHLORIDE FLUSH 0.9% 10 ML SYRINGE IVP SCH ×4 (03:26→23:50)
[2021-02-02 05:47] LABS: BASOPHILS % (AUTO) 0.1 %; HCT - HEMATOCRIT 35.3 % (42.0-52.0); HGB - HEMOGLOBIN 11.7 g/dL (14.0-18.0); LYMPHOCYTES # (AUTO) 0.5 10^3/uL (1.5-3.5); LYMPHOCYTES % (AUTO) 6.8 %; MEAN CORPUSCULAR HEMOGLOBIN 32.3 pg (27.0-31.0); MEAN CORPUSCULAR HGB CONC 33.1 g/dL (32.0-36.0); MEAN CORPUSCULAR VOLUME 97.5 fL (80.0-94.0); MEAN PLATELET VOLUME 10.5 fL (7.4-11.4); MONOCYTES # (AUTO) 0.6 10^3/uL (0.0-1.0); MONOCYTES % (AUTO) 7.9 %; NEUTROPHILS # (AUTO) 6.2 10^3/uL (1.5-6.6); NEUTROPHILS % (AUTO) 84.5 %; PLT - PLATELET COUNT 208 10^3/uL (130-450); RED BLOOD COUNT 3.62 10^6/uL (4.70-6.10); RED CELL DISTRIBUTION WIDTH 13.3 % (12.0-15.0); WHITE BLOOD COUNT 7.3 x10^3/uL (4.8-10.8)
[2021-02-02 06:03] LABS: CREATININE 0.9 mg/dL (0.6-1.2)
[2021-02-02 06:14] LABS: CALCIUM 8.8 mg/dL (8.5-10.3); POTASSIUM 4.8 mmol/L (3.5-5.0)
--- NOTE | 2021-02-02 07:45 | PROVIDER PROGRESS NOTE ---
Assessment/Plan - Problem List (1) Acute respiratory failure with hypoxia Assessment/Plan: Secondary to COVID-19 pneumonia. Currently on 4 L of oxygen via nasal cannula with oxygen saturation at 92% Patient is on remdesivir the 5 out of 5. On Decadron day 5 out of 10. Continue DVT prophylaxis with Lovenox 40 mg subcu daily. (2) COVID-19 Assessment/Plan: Currently on 4 L of oxygen via nasal cannula with oxygen saturation at 92% Patient is on remdesivir the 5 out of 5. On Decadron day 5 out of 10. Continue DVT prophylaxis with Lovenox 40 mg subcu daily. - Current Meds Current Meds: Current Medications Generic Name Dose Route Start Last Admin Trade Name Freq PRN Reason Stop Dose Admin Albuterol 2 puffs 01/30/21 08:37 01/31/21 08:51 Albuterol 1 Puff INH 2 puffs Q4HR PRN Administration Wheezing Dexamethasone 6 mg 01/30/21 09:00 02/01/21 10:38 Dexamethasone 4 Mg/Ml Vial IVP 6 mg DAILY GEORGIE Administration Enoxaparin Sodium 40 mg 01/30/21 09:00 02/01/21 10:39 Enoxaparin 40 Mg/0.4 Ml Syringe SUBQ 40 mg DAILY GEORGIE Administration Remdesivir 100 mg/ Sodium 100 mls @ 200 mls/hr 01/30/21 09:00 02/01/21 11:39 Chloride IV 02/02/21 09:29 Infused DAILY GEORGIE Infusion Ondansetron HCl 4 mg 01/29/21 17:09 01/30/21 22:04 Ondansetron Odt 4 Mg Tablet TL 4 mg Q6HR PRN Administration Nausea / Vomiting Oxycodone HCl 5 mg 01/29/21 17:09 02/02/21 01:34 Oxycodone 5 Mg Tablet PO 5 mg Q4HR PRN Administration Pain 5 to 7 Polyethylene Glycol 17 gm 02/01/21 09:00 02/01/21 10:43 Polyethylene Glycol 3350 17 Gm Packet PO 17 gm DAILY GEORGIE Administration Sodium Chloride 10 ml 01/29/21 17:09 01/29/21 18:39 Sodium Chloride Flush 0.9% 10 Ml Syringe IVP 10 ml PRN PRN Administration NEEDED PER PROVIDER ORDERS Sodium Chloride 10 ml 01/30/21 01:00 02/02/21 03:26 Sodium Chloride Flush 0.9% 10 Ml Syringe IVP Not Given 0100,0900,1700 GEORGIE Throat Lozenges 1 lozenge 01/30/21 02:25 01/30/21 04:54 Benzocaine/Menthol Lozenge MM 1 lozenge Q2HR PRN Administration Throat pain - Lab Result Fish Bone Diagrams: 02/02/21 05:03 02/02/21 05:03 Subjective - Subjective Patient Reports: Other (Patient was seated in bedside chair at time of exam. His dyspnea persists however his oxygen saturation stays stable around 92% on 4 L. He also continues to be weak. He complains of not sleeping well last night) Objective Vital Signs: Vital Signs - 24 hr 02/01/21 02/01/21 02/01/21 08:35 16:00 16:45 Temperature 36.1 C L 36.2 C L Heart Rate 62 Heart Rate [ 52 L 70 Brachial] Respiratory 24 18 20 Rate Blood Pressure 128/73 112/77 [Right Brachial artery] O2 Saturation 91 L 94 02/01/21 23:18 Temperature 36.4 C L Heart Rate Heart Rate [ 61 Brachial] Respiratory 20 Rate Blood Pressure 119/79 [Right Brachial artery] O2 Saturation 92 Oxygen O2 Source Nasal cannula Oxygen Flow Rate 2 I&O (Last 24 Hrs): Intake and Output Totals x24h 01/31/21 02/01/21 02/02/21 23:59 23:59 23:59 Intake Total 1694 1698 250 Output Total 225 100 Balance 1469 1598 250 General: Alert, Oriented x3, Mild distress HEENT: Atraumatic, PERRLA, EOMI Neck: Supple, No JVD Neuro: Alert, Non Focal, Oriented Times 3 Cardiovascular: Regular rate, No murmurs Respiratory: Chest non-tender, No respiratory distress, Breath sounds nml, Other (Mild crackles in the lung bases bilaterally. Left greater than right) Abdomen: Normal bowel sounds, Soft, No tenderness, No masses Extremities: No clubbing, No cyanosis, No edema Skin: No rashes, No breakdown, No significant lesion - Results Results: Laboratory Results WBC 7.3 x10^3/uL (4.8-10.8) 02/02/21 05:03 RBC 3.62 10^6/uL (4.70-6.10) L 02/02/21 05:03 Hgb 11.7 g/dL (14.0-18.0) L 02/02/21 05:03 Hct 35.3 % (42.0-52.0) L 02/02/21 05:03 MCV 97.5 fL (80.0-94.0) H 02/02/21 05:03 MCH 32.3 pg (27.0-31.0) H 02/02/21 05:03 MCHC 33.1 g/dL (32.0-36.0) 02/02/21 05:03 RDW 13.3 % (12.0-15.0) 02/02/21 05:03 Plt Count 208 10^3/uL (130-450) 02/02/21 05:03 MPV 10.5 fL (7.4-11.4) 02/02/21 05:03 Neut # (Auto) 6.2 10^3/uL (1.5-6.6) 02/02/21 05:03 Lymph # (Auto) 0.5 10^3/uL (1.5-3.5) L 02/02/21 05:03 [place] # (Auto) 0.6 10^3/uL (0.0-1.0) 02/02/21 05:03 Eos # (Auto) 0.0 10^3/uL (0.0-0.7) 02/02/21 05:03 Baso # (Auto) 0.0 10^3/uL (0.0-0.1) 02/02/21 05:03 Absolute Nucleated RBC 0.00 x10^3/uL 02/02/21 05:03 Nucleated RBC % 0.0 /100WBC 02/02/21 05:03 D-Dimer 348.8 ng/mL (200.0-255.0) H 01/29/21 16:35 Sodium 140 mmol/L (135-145) 02/02/21 05:03 Potassium 4.8 mmol/L (3.5-5.0) 02/02/21 05:03 Chloride 103 mmol/L (101-111) 02/02/21 05:03 Carbon Dioxide 28 mmol/L (21-32) 02/02/21 05:03 Anion Gap 9.0 (6-13) 02/02/21 05:03 BUN 50 mg/dL (6-20) H 02/02/21 05:03 Creatinine 0.9 mg/dL (0.6-1.2) 02/02/21 05:03 Estimated GFR (MDRD) 81 (>89) L 02/02/21 05:03 Glucose 141 mg/dL (70-100) H 02/02/21 05:03 Lactic Acid 1.8 mmol/L (0.5-2.2) 01/29/21 16:35 Calcium 8.8 mg/dL (8.5-10.3) 02/02/21 05:03 Total Bilirubin 0.6 mg/dL (0.2-1.0) 01/29/21 16:35 AST 59 IU/L (10-42) H 01/29/21 16:35 ALT 27 IU/L (10-60) 01/29/21 16:35 Alkaline Phosphatase 37 IU/L (42-121) L 01/29/21 16:35 C-Reactive Protein 6.0 mg/dL (0-1.0) H 02/02/21 05:03 Total Protein 7.2 g/dL (6.7-8.2) 01/29/21 16:35 Albumin 3.7 g/dL (3.2-5.5) 01/29/21 16:35 Globulin 3.5 g/dL (2.1-4.2) 01/29/21 16:35 Albumin/Globulin Ratio 1.1 (1.0-2.2) 01/29/21 16:35 Nasal Adenovirus (PCR) NOT DETECTED 01/29/21 16:43 Nasal B. parapertussis DNA (PCR) NOT DETECTED 01/29/21 16:43 Nasal Coronavir 229E PCR NOT DETECTED 01/29/21 16:43 Nasal Coronavir HKU1 PCR NOT DETECTED 01/29/21 16:43 Nasal Coronavir NL63 PCR NOT DETECTED 01/29/21 16:43 Nasal Coronavir OC43 PCR NOT DETECTED 01/29/21 16:43 Nasal Enterovir/Rhinovir PCR NOT DETECTED 01/29/21 16:43 Nasal Influenza B PCR NOT DETECTED 01/29/21 16:43 Nasal Parainfluen 1 PCR NOT DETECTED 01/29/21 16:43 Nasal Parainfluen 2 PCR NOT DETECTED 01/29/21 16:43 Nasal Parainfluen 3 PCR NOT DETECTED 01/29/21 16:43 Nasal Parainfluen 4 PCR NOT DETECTED 01/29/21 16:43 Nasal RSV (PCR) NOT DETECTED 01/29/21 16:43 Nasal B.pertussis DNA PCR NOT DETECTED 01/29/21 16:43 Nasal C.pneumoniae (PCR) NOT DETECTED 01/29/21 16:43 Aaron Human Metapneumo PCR NOT DETECTED 01/29/21 16:43 Nasal M.pneumoniae (PCR) NOT DETECTED 01/29/21 16:43 Nasal SARS-CoV-2 (PCR) DETECTED A 01/29/21 16:43 ABX Reporting Has patient been on IV antibiotics over the past 48 hours?: No
[2021-02-02] MEDS: ALBUTEROL 1 PUFF INH PRN (08:45)
[2021-02-02] MEDS: polyethylene glycoL 3350 17 GM PACKET PO SCH (09:01)
[2021-02-02] MEDS: ENOXAPARIN 40 MG/0.4 ML SYRINGE SUBQ SCH (09:02)
[2021-02-02] MEDS: REMDESIVIR 100MG VIAL 100 MG in SODIUM CHLORIDE 0.9% 100ML 100 ML IV SCH (09:02)
[2021-02-02] MEDS: DEXAMETHASONE 4 MG/ML VIAL IVP SCH (09:02)
[2021-02-02] MEDS: CHOLECALCIFEROL 5,000 UNIT CAPSULE PO SCH (17:22)
[2021-02-02] MEDS: traZODone 50 MG TABLET PO SCH (21:13)
[2021-02-03 06:18] LABS: HCT - HEMATOCRIT 36.5 % (42.0-52.0); HGB - HEMOGLOBIN 12.3 g/dL (14.0-18.0); LYMPHOCYTES # (AUTO) 0.4 10^3/uL (1.5-3.5); LYMPHOCYTES % (AUTO) 4.5 %; MEAN CORPUSCULAR HEMOGLOBIN 33.2 pg (27.0-31.0); MEAN CORPUSCULAR HGB CONC 33.7 g/dL (32.0-36.0); MEAN CORPUSCULAR VOLUME 98.6 fL (80.0-94.0); MEAN PLATELET VOLUME 10.6 fL (7.4-11.4); MONOCYTES # (AUTO) 0.8 10^3/uL (0.0-1.0); MONOCYTES % (AUTO) 9.4 %; NEUTROPHILS # (AUTO) 7.2 10^3/uL (1.5-6.6); NEUTROPHILS % (AUTO) 84.9 %; PLT - PLATELET COUNT 194 10^3/uL (130-450); RED CELL DISTRIBUTION WIDTH 13.1 % (12.0-15.0); WHITE BLOOD COUNT 8.4 x10^3/uL (4.8-10.8)
[2021-02-03 06:34] LABS: CALCIUM 8.8 mg/dL (8.5-10.3); CRP - C-REACTIVE PROTEIN 3.6 mg/dL (0-1.0); POTASSIUM 4.8 mmol/L (3.5-5.0)
--- NOTE | 2021-02-03 07:20 | PROVIDER PROGRESS NOTE ---
Assessment/Plan - Problem List (1) Acute respiratory failure with hypoxia Assessment/Plan: Secondary to COVID-19 pneumonia. Respiratory status is slightly worsened today CXR today showed worsening viral pneumonia Currently on 7 L of oxygen via nasal cannula with oxygen saturation at 90% Patient completed remdesivir on 02/02/21 Decadron increased to 10mg IV daily for 5 day. Lasix 20mg IV X 1 given Continue DVT prophylaxis with Lovenox 40 mg subcu daily. (2) COVID-19 Assessment/Plan: Secondary to COVID-19 pneumonia. Respiratory status is slightly worsened today CXR today showed worsening viral pneumonia Currently on 7 L of oxygen via nasal cannula with oxygen saturation at 90% Patient completed remdesivir on 02/02/21 Decadron increased to 10mg IV daily for 5 day. Lasix 20mg IV X 1 given Continue DVT prophylaxis with Lovenox 40 mg subcu daily. - Current Meds Current Meds: Current Medications Generic Name Dose Route Start Last Admin Trade Name Freq PRN Reason Stop Dose Admin Albuterol 2 puffs 01/30/21 08:37 02/02/21 08:45 Albuterol 1 Puff INH 2 puffs Q4HR PRN Administration Wheezing Cholecalciferol 5,000 unit 02/02/21 16:00 02/02/21 17:22 Cholecalciferol 5,000 Unit Capsule PO 5,000 unit DAILY GEORGIE Administration Dexamethasone 6 mg 01/30/21 09:00 02/02/21 09:02 Dexamethasone 4 Mg/Ml Vial IVP 6 mg DAILY GEORGIE Administration Enoxaparin Sodium 40 mg 01/30/21 09:00 02/02/21 09:02 Enoxaparin 40 Mg/0.4 Ml Syringe SUBQ 40 mg DAILY GEORGIE Administration Ondansetron HCl 4 mg 01/29/21 17:09 01/30/21 22:04 Ondansetron Odt 4 Mg Tablet TL 4 mg Q6HR PRN Administration Nausea / Vomiting Oxycodone HCl 5 mg 01/29/21 17:09 02/02/21 01:34 Oxycodone 5 Mg Tablet PO 5 mg Q4HR PRN Administration Pain 5 to 7 Polyethylene Glycol 17 gm 02/01/21 09:00 02/02/21 09:01 Polyethylene Glycol 3350 17 Gm Packet PO 17 gm DAILY GEORGIE Administration Sodium Chloride 10 ml 01/29/21 17:09 01/29/21 18:39 Sodium Chloride Flush 0.9% 10 Ml Syringe IVP 10 ml PRN PRN Administration NEEDED PER PROVIDER ORDERS Sodium Chloride 10 ml 01/30/21 01:00 02/02/21 23:50 Sodium Chloride Flush 0.9% 10 Ml Syringe IVP 10 ml 0100,0900,1700 GEORGIE Administration Throat Lozenges 1 lozenge 01/30/21 02:25 01/30/21 04:54 Benzocaine/Menthol Lozenge MM 1 lozenge Q2HR PRN Administration Throat pain Trazodone HCl 50 mg 02/02/21 21:00 02/02/21 21:13 Trazodone 50 Mg Tablet PO 50 mg QPM GEORGIE Administration - Lab Result Fish Bone Diagrams: 02/03/21 05:35 02/03/21 05:35 - Additional Planning My Orders: My Active Orders 02/02/21 11:00 Daily Weight [RC] 0600 02/02/21 16:00 Cholecalciferol [Vitamin D3] 5,000 unit PO DAILY 02/02/21 21:00 traZODone [Desyrel] 50 mg PO QPM Subjective - Subjective Patient Reports: Other (Patient's respiratory status appears slightly worsened today. His oxygen requirement has increased to 7 L via nasal cannula to maintain his oxygen at 90%. He is significantly dyspneic with the slightest injection. He denies chest pain, abdominal pain, nausea, vomiting, fever or chills. He is weak) Objective Vital Signs: Vital Signs - 24 hr 02/02/21 02/02/21 02/02/21 07:40 08:45 16:00 Temperature 36.4 C L 36.4 C L Heart Rate 93 Heart Rate [ 69 64 Brachial] Respiratory 24 14 16 Rate Blood Pressure 127/76 117/70 [Right Brachial artery] O2 Saturation 92 92 02/02/21 23:40 Temperature 36.3 C L Heart Rate Heart Rate [ 57 L Brachial] Respiratory 18 Rate Blood Pressure 114/90 H [Right Brachial artery] O2 Saturation 95 Oxygen O2 Source Nasal cannula Oxygen Flow Rate 2 I&O (Last 24 Hrs): Intake and Output Totals x24h 02/01/21 02/02/21 02/03/21 23:59 23:59 23:59 Intake Total 1698 1324 0 Output Total 100 Balance 1598 1324 0 General: Alert, Oriented x3, Moderate distress HEENT: PERRLA, EOMI Neck: Supple, No JVD Neuro: Alert, Non Focal, Oriented Times 3 Cardiovascular: Regular rate, No murmurs Respiratory: Chest non-tender, Other (Moderate respiratory distress Bilateral crackles in lung bases) Abdomen: Normal bowel sounds, Soft, No tenderness, No masses Extremities: No clubbing, No cyanosis, No edema Skin: No rashes, No breakdown, No significant lesion - Results Results: Laboratory Results WBC 8.4 x10^3/uL (4.8-10.8) 02/03/21 05:35 RBC 3.70 10^6/uL (4.70-6.10) L 02/03/21 05:35 Hgb 12.3 g/dL (14.0-18.0) L 02/03/21 05:35 Hct 36.5 % (42.0-52.0) L 02/03/21 05:35 MCV 98.6 fL (80.0-94.0) H 02/03/21 05:35 MCH 33.2 pg (27.0-31.0) H 02/03/21 05:35 MCHC 33.7 g/dL (32.0-36.0) 02/03/21 05:35 RDW 13.1 % (12.0-15.0) 02/03/21 05:35 Plt Count 194 10^3/uL (130-450) 02/03/21 05:35 MPV 10.6 fL (7.4-11.4) 02/03/21 05:35 Neut # (Auto) 7.2 10^3/uL (1.5-6.6) H 02/03/21 05:35 Lymph # (Auto) 0.4 10^3/uL (1.5-3.5) L 02/03/21 05:35 [place] # (Auto) 0.8 10^3/uL (0.0-1.0) 02/03/21 05:35 Eos # (Auto) 0.0 10^3/uL (0.0-0.7) 02/03/21 05:35 Baso # (Auto) 0.0 10^3/uL (0.0-0.1) 02/03/21 05:35 Absolute Nucleated RBC 0.00 x10^3/uL 02/03/21 05:35 Nucleated RBC % 0.0 /100WBC 02/03/21 05:35 D-Dimer 348.8 ng/mL (200.0-255.0) H 01/29/21 16:35 Sodium 141 mmol/L (135-145) 02/03/21 05:35 Potassium 4.8 mmol/L (3.5-5.0) 02/03/21 05:35 Chloride 103 mmol/L (101-111) 02/03/21 05:35 Carbon Dioxide 29 mmol/L (21-32) 02/03/21 05:35 Anion Gap 9.0 (6-13) 02/03/21 05:35 BUN 47 mg/dL (6-20) H 02/03/21 05:35 Creatinine 1.0 mg/dL (0.6-1.2) 02/03/21 05:35 Estimated GFR (MDRD) 72 (>89) L 02/03/21 05:35 Glucose 144 mg/dL (70-100) H 02/03/21 05:35 Lactic Acid 1.8 mmol/L (0.5-2.2) 01/29/21 16:35 Calcium 8.8 mg/dL (8.5-10.3) 02/03/21 05:35 Total Bilirubin 0.6 mg/dL (0.2-1.0) 01/29/21 16:35 AST 59 IU/L (10-42) H 01/29/21 16:35 ALT 27 IU/L (10-60) 01/29/21 16:35 Alkaline Phosphatase 37 IU/L (42-121) L 01/29/21 16:35 C-Reactive Protein 3.6 mg/dL (0-1.0) H 02/03/21 05:35 Total Protein 7.2 g/dL (6.7-8.2) 01/29/21 16:35 Albumin 3.7 g/dL (3.2-5.5) 01/29/21 16:35 Globulin 3.5 g/dL (2.1-4.2) 01/29/21 16:35 Albumin/Globulin Ratio 1.1 (1.0-2.2) 01/29/21 16:35 25-OH Vitamin D Total 64 ng/mL (30-100) 02/02/21 11:19 Nasal Adenovirus (PCR) NOT DETECTED 01/29/21 16:43 Nasal B. parapertussis DNA (PCR) NOT DETECTED 01/29/21 16:43 Nasal Coronavir 229E PCR NOT DETECTED 01/29/21 16:43 Nasal Coronavir HKU1 PCR NOT DETECTED 01/29/21 16:43 Nasal Coronavir NL63 PCR NOT DETECTED 01/29/21 16:43 Nasal Coronavir OC43 PCR NOT DETECTED 01/29/21 16:43 Nasal Enterovir/Rhinovir PCR NOT DETECTED 01/29/21 16:43 Nasal Influenza B PCR NOT DETECTED 01/29/21 16:43 Nasal Parainfluen 1 PCR NOT DETECTED 01/29/21 16:43 Nasal Parainfluen 2 PCR NOT DETECTED 01/29/21 16:43 Nasal Parainfluen 3 PCR NOT DETECTED 01/29/21 16:43 Nasal Parainfluen 4 PCR NOT DETECTED 01/29/21 16:43 Nasal RSV (PCR) NOT DETECTED 01/29/21 16:43 Nasal B.pertussis DNA PCR NOT DETECTED 01/29/21 16:43 Nasal C.pneumoniae (PCR) NOT DETECTED 01/29/21 16:43 Aaron Human Metapneumo PCR NOT DETECTED 01/29/21 16:43 Nasal M.pneumoniae (PCR) NOT DETECTED 01/29/21 16:43 Nasal SARS-CoV-2 (PCR) DETECTED A 01/29/21 16:43 ABX Reporting Has patient been on IV antibiotics over the past 48 hours?: No
[2021-02-03] MEDS: SODIUM CHLORIDE FLUSH 0.9% 10 ML SYRINGE IVP SCH ×3 (08:32→23:55)
[2021-02-03] MEDS: polyethylene glycoL 3350 17 GM PACKET PO SCH (08:33)
[2021-02-03] MEDS: CHOLECALCIFEROL 5,000 UNIT CAPSULE PO SCH (08:36)
[2021-02-03] MEDS: ENOXAPARIN 40 MG/0.4 ML SYRINGE SUBQ SCH (08:36)
[2021-02-03] MEDS ORDERED: FUROSEMIDE 20 MG/2 ML VIAL IVP STA (08:41)
--- NOTE | 2021-02-03 09:15 | XRAY Report ---
PROCEDURE: Chest 1 View X-Ray INDICATIONS: dyspnea, hypoxia TECHNIQUE: One view of the chest was acquired. COMPARISON: 01/29/2021 FINDINGS: Surgical changes and devices: None. Lungs and pleura: No pleural effusions or pneumothorax. Worsening interstitial and alveolar opacitie s in the bilateral perihilar and suprahilar regions. Increasing confluence of alveolar opacity at bot h lung bases, right greater than left. Mediastinum: Mediastinal contours appear normal. Heart size is stable at the upper limits of normal . Bones and chest wall: No suspicious bony lesions. Overlying soft tissues appear unremarkable. IMPRESSION: 1. Worsening bilateral interstitial and alveolar opacities consistent with history of viral pneumonia . 2. No new pleural effusion. 3. Stable heart size at the upper limits of normal. Reviewed by: Ana Mello MD on 02/03/2021 9:13 AM PDT Approved by: Ana Mello MD on 02/03/2021 9:13 AM PDT Station ID: [id number]
[2021-02-03] MEDS: DEXAMETHASONE 4 MG/ML VIAL IVP SCH (09:27)
[2021-02-03] MEDS: SENNA 8.6 MG TABLET PO SCH (09:28)
[2021-02-03] MEDS: TAMSULOSIN 0.4 MG CAPSULE PO SCH (09:29)
[2021-02-03] MEDS: DOCUSATE SODIUM 250 MG CAPSULE PO SCH (09:29)
[2021-02-03] MEDS: ACETAMINOPHEN 325 MG TABLET PO PRN ×2 (10:21→23:54)
[2021-02-03] MEDS ORDERED: BUDESONIDE 0.5 MG/2 ML NEB INH SCH (19:00)
[2021-02-03] MEDS: traZODone 50 MG TABLET PO SCH (20:21)
[2021-02-04 05:44] LABS: BASOPHILS % (AUTO) 0.1 %; LYMPHOCYTES # (AUTO) 0.6 10^3/uL (1.5-3.5); LYMPHOCYTES % (AUTO) 5.5 %; MEAN CORPUSCULAR HEMOGLOBIN 33.3 pg (27.0-31.0); MEAN CORPUSCULAR HGB CONC 34.3 g/dL (32.0-36.0); MEAN CORPUSCULAR VOLUME 97.2 fL (80.0-94.0); MEAN PLATELET VOLUME 11.1 fL (7.4-11.4); MONOCYTES # (AUTO) 0.8 10^3/uL (0.0-1.0); MONOCYTES % (AUTO) 7.7 %; NEUTROPHILS # (AUTO) 8.5 10^3/uL (1.5-6.6); NEUTROPHILS % (AUTO) 84.6 %; PLT - PLATELET COUNT 179 10^3/uL (130-450); RED CELL DISTRIBUTION WIDTH 13.4 % (12.0-15.0)
[2021-02-04 06:03] LABS: CALCIUM 8.7 mg/dL (8.5-10.3); CRP - C-REACTIVE PROTEIN 2.5 mg/dL (0-1.0); POTASSIUM 4.8 mmol/L (3.5-5.0)
[2021-02-04] MEDS ORDERED: MORPHINE 2 MG/ML CARPUJECT IVP STA (06:54)
[2021-02-04] MEDS ORDERED: FUROSEMIDE 20 MG/2 ML VIAL IVP STA (07:22)
--- NOTE | 2021-02-04 07:45 | PROVIDER PROGRESS NOTE ---
Assessment/Plan - Problem List (1) Acute respiratory failure with hypoxia Assessment/Plan: Secondary to COVID-19 pneumonia. Respiratory status is slightly worsened today CXR on 02/03/21 showed worsening viral pneumonia Currently on 40 L of oxygen via high blue nasal cannula at an FiO2 of 61% with oxygen saturation at 94% ph 7.60, pCO2 32, pO2 63, HCO3 30 Patient completed remdesivir on 02/02/21 Decadron increased to 10mg IV daily for 5 day. Last day 02/07/21 Lasix 20mg IV X 1 given again today Morphine for air hunger. Ativan for anxiety Continue DVT prophylaxis with Lovenox 40 mg subcu daily. (2) COVID-19 Assessment/Plan: Secondary to COVID-19 pneumonia. Respiratory status is slightly worsened today CXR on 02/03/21 showed worsening viral pneumonia Currently on 40 L of oxygen via high blue nasal cannula at an FiO2 of 61% with oxygen saturation at 94% ph 7.60, pCO2 32, pO2 63, HCO3 30 Patient completed remdesivir on 02/02/21 Decadron increased to 10mg IV daily for 5 day. Last day 02/07/21 Lasix 20mg IV X 1 given again today Morphine for air hunger. Ativan for anxiety Continue DVT prophylaxis with Lovenox 40 mg subcu daily. - Current Meds Current Meds: Current Medications Generic Name Dose Route Start Last Admin Trade Name Freq PRN Reason Stop Dose Admin Acetaminophen 650 mg 01/29/21 17:09 02/03/21 23:54 Acetaminophen 325 Mg Tablet PO 650 mg Q4HR PRN Administration Pain 1 to 4 Albuterol 2 puffs 01/30/21 08:37 02/02/21 08:45 Albuterol 1 Puff INH 2 puffs Q4HR PRN Administration Wheezing Dexamethasone 10 mg 02/03/21 09:00 02/03/21 09:27 Dexamethasone 4 Mg/Ml Vial IVP 02/07/21 09:01 10 mg DAILY GEORGIE Administration Docusate Sodium 250 - 500 mg 02/03/21 09:00 02/03/21 09:29 Docusate Sodium 250 Mg Capsule PO 500 mg DAILY GEORGIE Administration Enoxaparin Sodium 40 mg 01/30/21 09:00 02/03/21 08:36 Enoxaparin 40 Mg/0.4 Ml Syringe SUBQ 40 mg DAILY GEORGIE Administration Ondansetron HCl 4 mg 01/29/21 17:09 01/30/21 22:04 Ondansetron Odt 4 Mg Tablet TL 4 mg Q6HR PRN Administration Nausea / Vomiting Oxycodone HCl 5 mg 01/29/21 17:09 02/02/21 01:34 Oxycodone 5 Mg Tablet PO 5 mg Q4HR PRN Administration Pain 5 to 7 Polyethylene Glycol 17 gm 02/01/21 09:00 02/03/21 08:33 Polyethylene Glycol 3350 17 Gm Packet PO 17 gm DAILY GEORGIE Administration Senna 8.6 - 17.2 mg 02/03/21 09:00 02/03/21 09:28 Senna 8.6 Mg Tablet PO 17.2 mg DAILY GEORGIE Administration Sodium Chloride 10 ml 01/29/21 17:09 01/29/21 18:39 Sodium Chloride Flush 0.9% 10 Ml Syringe IVP 10 ml PRN PRN Administration NEEDED PER PROVIDER ORDERS Sodium Chloride 10 ml 01/30/21 01:00 02/03/21 23:55 Sodium Chloride Flush 0.9% 10 Ml Syringe IVP 10 ml 0100,0900,1700 GEORGIE Administration Tamsulosin HCl 0.4 mg 02/03/21 09:00 02/03/21 09:29 Tamsulosin 0.4 Mg Capsule PO 0.4 mg DAILY GEORGIE Administration Throat Lozenges 1 lozenge 01/30/21 02:25 01/30/21 04:54 Benzocaine/Menthol Lozenge MM 1 lozenge Q2HR PRN Administration Throat pain Trazodone HCl 50 mg 02/02/21 21:00 02/03/21 20:21 Trazodone 50 Mg Tablet PO 50 mg QPM GEORGIE Administration - Lab Result Fish Bone Diagrams: 02/04/21 04:14 02/04/21 04:14 - Additional Planning My Orders: My Active Orders 02/03/21 08:48 Resp Teach Nebulizer/MDI [RC] .ONCE 02/03/21 09:00 Tamsulosin [Flomax] 0.4 mg PO DAILY dexAMETHasone [Decadron] 10 mg IVP DAILY 02/03/21 13:49 Barron Insertion [RC] QSHIFT Subjective - Subjective Patient Reports: Other (Patient's respiratory status was worse this morning. He required high flow nasal cannula to maintain his oxygen saturation greater than 90. He is anxious and weak.) Objective Vital Signs: Vital Signs - 24 hr 02/03/21 02/03/21 02/03/21 08:00 10:27 16:00 Temperature 36.4 C L 36.3 C L Heart Rate Heart Rate [ 63 71 Brachial] Respiratory 24 16 Rate Blood Pressure 148/85 H 115/75 [Right Brachial artery] O2 Saturation 92 92 92 02/03/21 02/03/21 02/04/21 20:06 23:51 05:45 Temperature 36.4 C L 36.3 C L Heart Rate 90 Heart Rate [ 58 L 55 L Brachial] Respiratory 18 20 28 H Rate Blood Pressure 118/73 124/81 H [Right Brachial artery] O2 Saturation 93 90 L 02/04/21 02/04/21 06:13 07:04 Temperature Heart Rate Heart Rate [ 26 L Brachial] Respiratory 30 H Rate Blood Pressure [Right Brachial artery] O2 Saturation 97 93 Oxygen O2 Source HHFNC Oxygen Flow Rate 2 I&O (Last 24 Hrs): Intake and Output Totals x24h 02/02/21 02/03/21 02/04/21 23:59 23:59 23:59 Intake Total 1324 1603 350 Output Total 2080 750 Balance 1324 -477 -400 General: Alert, Oriented x3, Moderate distress (respiratory distress), Other (anxious, weak) HEENT: PERRLA, EOMI Neck: Supple, No JVD Neuro: Alert, Oriented Times 3 Cardiovascular: Other (irregularly irregular) Respiratory: Chest non-tender, Other (crackles bilaterally) Abdomen: Normal bowel sounds, Soft, No tenderness, No masses Extremities: No clubbing, No edema, No tenderness/swelling Skin: No rashes, No breakdown, No significant lesion - Results Results: Laboratory Results WBC 10.0 x10^3/uL (4.8-10.8) 02/04/21 04:14 RBC 3.60 10^6/uL (4.70-6.10) L 02/04/21 04:14 Hgb 12.0 g/dL (14.0-18.0) L 02/04/21 04:14 Hct 35.0 % (42.0-52.0) L 02/04/21 04:14 MCV 97.2 fL (80.0-94.0) H 02/04/21 04:14 MCH 33.3 pg (27.0-31.0) H 02/04/21 04:14 MCHC 34.3 g/dL (32.0-36.0) 02/04/21 04:14 RDW 13.4 % (12.0-15.0) 02/04/21 04:14 Plt Count 179 10^3/uL (130-450) 02/04/21 04:14 MPV 11.1 fL (7.4-11.4) 02/04/21 04:14 Neut # (Auto) 8.5 10^3/uL (1.5-6.6) H 02/04/21 04:14 Lymph # (Auto) 0.6 10^3/uL (1.5-3.5) L 02/04/21 04:14 [place] # (Auto) 0.8 10^3/uL (0.0-1.0) 02/04/21 04:14 Eos # (Auto) 0.0 10^3/uL (0.0-0.7) 02/04/21 04:14 Baso # (Auto) 0.0 10^3/uL (0.0-0.1) 02/04/21 04:14 Absolute Nucleated RBC 0.00 x10^3/uL 02/04/21 04:14 Nucleated RBC % 0.0 /100WBC 02/04/21 04:14 D-Dimer 348.8 ng/mL (200.0-255.0) H 01/29/21 16:35 Sodium 139 mmol/L (135-145) 02/04/21 04:14 Potassium 4.8 mmol/L (3.5-5.0) 02/04/21 04:14 Chloride 99 mmol/L (101-111) L 02/04/21 04:14 Carbon Dioxide 29 mmol/L (21-32) 02/04/21 04:14 Anion Gap 11.0 (6-13) 02/04/21 04:14 BUN 56 mg/dL (6-20) H 02/04/21 04:14 Creatinine 1.0 mg/dL (0.6-1.2) 02/04/21 04:14 Estimated GFR (MDRD) 72 (>89) L 02/04/21 04:14 Glucose 131 mg/dL (70-100) H 02/04/21 04:14 Lactic Acid 1.8 mmol/L (0.5-2.2) 01/29/21 16:35 Calcium 8.7 mg/dL (8.5-10.3) 02/04/21 04:14 Total Bilirubin 0.6 mg/dL (0.2-1.0) 01/29/21 16:35 AST 59 IU/L (10-42) H 01/29/21 16:35 ALT 27 IU/L (10-60) 01/29/21 16:35 Alkaline Phosphatase 37 IU/L (42-121) L 01/29/21 16:35 C-Reactive Protein 2.5 mg/dL (0-1.0) H 02/04/21 04:14 Total Protein 7.2 g/dL (6.7-8.2) 01/29/21 16:35 Albumin 3.7 g/dL (3.2-5.5) 01/29/21 16:35 Globulin 3.5 g/dL (2.1-4.2) 01/29/21 16:35 Albumin/Globulin Ratio 1.1 (1.0-2.2) 01/29/21 16:35 25-OH Vitamin D Total 64 ng/mL (30-100) 02/02/21 11:19 Nasal Adenovirus (PCR) NOT DETECTED 01/29/21 16:43 Nasal B. parapertussis DNA (PCR) NOT DETECTED 01/29/21 16:43 Nasal Coronavir 229E PCR NOT DETECTED 01/29/21 16:43 Nasal Coronavir HKU1 PCR NOT DETECTED 01/29/21 16:43 Nasal Coronavir NL63 PCR NOT DETECTED 01/29/21 16:43 Nasal Coronavir OC43 PCR NOT DETECTED 01/29/21 16:43 Nasal Enterovir/Rhinovir PCR NOT DETECTED 01/29/21 16:43 Nasal Influenza B PCR NOT DETECTED 01/29/21 16:43 Nasal Parainfluen 1 PCR NOT DETECTED 01/29/21 16:43 Nasal Parainfluen 2 PCR NOT DETECTED 01/29/21 16:43 Nasal Parainfluen 3 PCR NOT DETECTED 01/29/21 16:43 Nasal Parainfluen 4 PCR NOT DETECTED 01/29/21 16:43 Nasal RSV (PCR) NOT DETECTED 01/29/21 16:43 Nasal B.pertussis DNA PCR NOT DETECTED 01/29/21 16:43 Nasal C.pneumoniae (PCR) NOT DETECTED 01/29/21 16:43 Aaron Human Metapneumo PCR NOT DETECTED 01/29/21 16:43 Nasal M.pneumoniae (PCR) NOT DETECTED 01/29/21 16:43 Nasal SARS-CoV-2 (PCR) DETECTED A 01/29/21 16:43 ABX Reporting Has patient been on IV antibiotics over the past 48 hours?: No
[2021-02-04 08:20] LABS: ABG PCO2 32 mmHg (34-45); ABG PO2 63 mmHg (80-100)
[2021-02-04 08:21] LABS: ABG BASE EXCESS 8.5 mmol/L (-2.0-3.0); ABG OXYGEN SATURATION 94 % (94-98); ALLEN TEST POSITIVE
[2021-02-04] MEDS: DEXAMETHASONE 4 MG/ML VIAL IVP SCH (08:50)
[2021-02-04] MEDS: LORazepam 0.5 MG TABLET PO PRN (08:51)
[2021-02-04] MEDS: TAMSULOSIN 0.4 MG CAPSULE PO SCH (08:51)
[2021-02-04] MEDS: SENNA 8.6 MG TABLET PO SCH (08:51)
[2021-02-04] MEDS: ENOXAPARIN 40 MG/0.4 ML SYRINGE SUBQ SCH (08:52)
[2021-02-04] MEDS: DOCUSATE SODIUM 250 MG CAPSULE PO SCH (08:52)
[2021-02-04] MEDS: polyethylene glycoL 3350 17 GM PACKET PO SCH (08:52)
[2021-02-04] MEDS: SODIUM CHLORIDE FLUSH 0.9% 10 ML SYRINGE IVP SCH ×2 (08:54→17:43)
[2021-02-04] MEDS: SERTRALINE 50 MG TABLET PO SCH (12:31)
[2021-02-04] MEDS ORDERED: THEOPHYLLINE ER 300 MG TABLET PO SCH (21:00)
[2021-02-04] MEDS: APIXABAN 5 MG TABLET PO SCH (21:12)
[2021-02-04] MEDS: traZODone 50 MG TABLET PO SCH (21:12)
[2021-02-05] MEDS: oxyCODONE 5 MG TABLET PO PRN ×3 (00:39→13:00)
[2021-02-05] MEDS: SODIUM CHLORIDE FLUSH 0.9% 10 ML SYRINGE IVP SCH ×3 (01:05→16:46)
[2021-02-05 06:27] LABS: BASOPHILS % (AUTO) 0.2 %; HCT - HEMATOCRIT 33.6 % (42.0-52.0); HGB - HEMOGLOBIN 11.4 g/dL (14.0-18.0); LYMPHOCYTES # (AUTO) 0.7 10^3/uL (1.5-3.5); LYMPHOCYTES % (AUTO) 6.2 %; MEAN CORPUSCULAR HEMOGLOBIN 32.9 pg (27.0-31.0); MEAN CORPUSCULAR HGB CONC 33.9 g/dL (32.0-36.0); MEAN CORPUSCULAR VOLUME 97.1 fL (80.0-94.0); MEAN PLATELET VOLUME 11.2 fL (7.4-11.4); MONOCYTES # (AUTO) 0.7 10^3/uL (0.0-1.0); MONOCYTES % (AUTO) 6.4 %; NEUTROPHILS % (AUTO) 85.4 %; NRBC ABSOLUTE COUNT (AUTO) 0.02 x10^3/uL; NUCLEATED RED BLOOD CELLS AUTO 0.2 /100WBC; PLT - PLATELET COUNT 177 10^3/uL (130-450); RED BLOOD COUNT 3.46 10^6/uL (4.70-6.10); RED CELL DISTRIBUTION WIDTH 13.4 % (12.0-15.0); WHITE BLOOD COUNT 10.5 x10^3/uL (4.8-10.8)
[2021-02-05 06:46] LABS: CALCIUM 8.7 mg/dL (8.5-10.3); CREATININE 0.8 mg/dL (0.6-1.2); CRP - C-REACTIVE PROTEIN 1.8 mg/dL (0-1.0); POTASSIUM 4.8 mmol/L (3.5-5.0)
--- NOTE | 2021-02-05 07:53 | PROVIDER PROGRESS NOTE ---
Assessment/Plan - Problem List (1) Acute respiratory failure with hypoxia Assessment/Plan: Secondary to COVID-19 pneumonia. No significant change in patient's respiratory status today CXR on 02/03/21 showed worsening viral pneumonia Currently on 40 L of oxygen via high blue nasal cannula at an FiO2 of 70% with oxygen saturation at 94% ph 7.60, pCO2 32, pO2 63, HCO3 30 Patient completed remdesivir on 02/02/21 Decadron increased to 10mg IV daily. Last day 02/07/21 Lasix 20mg IV X 1 given again today Morphine for air hunger. Ativan for anxiety Continue DVT prophylaxis with Lovenox 40 mg subcu daily. (2) COVID-19 Assessment/Plan: Secondary to COVID-19 pneumonia. No significant change in patient's respiratory status today CXR on 02/03/21 showed worsening viral pneumonia Currently on 40 L of oxygen via high blue nasal cannula at an FiO2 of 70% with oxygen saturation at 94% ph 7.60, pCO2 32, pO2 63, HCO3 30 Patient completed remdesivir on 02/02/21 Decadron increased to 10mg IV daily. Last day 02/07/21 Lasix 20mg IV X 1 given again today Morphine for air hunger. Ativan for anxiety Continue DVT prophylaxis with Lovenox 40 mg subcu daily. (3) Atrial fibrillation Assessment/Plan: Patient has a Chadvasc score of 3 owing to age and previous history of CHF. As a result the patient is being started on Eliquis 5 mg p.o. twice daily. 2D echocardiogram done on 02/04/21 Showed an ejection fraction of 65 to 70%. Overall left ventricular systolic function is normal. There was no evidence of aortic stenosis. There was mild aortic valve sclerosis. - Current Meds Current Meds: Current Medications Generic Name Dose Route Start Last Admin Trade Name Freq PRN Reason Stop Dose Admin Acetaminophen 650 mg 01/29/21 17:09 02/03/21 23:54 Acetaminophen 325 Mg Tablet PO 650 mg Q4HR PRN Administration Pain 1 to 4 Albuterol 2 puffs 01/30/21 08:37 02/02/21 08:45 Albuterol 1 Puff INH 2 puffs Q4HR PRN Administration Wheezing Apixaban 5 mg 02/04/21 21:00 02/04/21 21:12 Apixaban 5 Mg Tablet PO 5 mg BID GEORGIE Administration Dexamethasone 10 mg 02/03/21 09:00 02/04/21 08:50 Dexamethasone 4 Mg/Ml Vial IVP 02/07/21 09:01 10 mg DAILY GEORGIE Administration Docusate Sodium 250 - 500 mg 02/03/21 09:00 02/04/21 08:52 Docusate Sodium 250 Mg Capsule PO 250 mg DAILY GEORGIE Administration Lorazepam 0.5 mg 02/04/21 08:29 02/04/21 08:51 Lorazepam 0.5 Mg Tablet PO 0.5 mg Q8H PRN Administration Anxiety Ondansetron HCl 4 mg 01/29/21 17:09 01/30/21 22:04 Ondansetron Odt 4 Mg Tablet TL 4 mg Q6HR PRN Administration Nausea / Vomiting Oxycodone HCl 5 mg 01/29/21 17:09 02/05/21 00:39 Oxycodone 5 Mg Tablet PO 5 mg Q4HR PRN Administration Pain 5 to 7 Polyethylene Glycol 17 gm 02/01/21 09:00 02/04/21 08:52 Polyethylene Glycol 3350 17 Gm Packet PO 17 gm DAILY GEORGIE Administration Senna 8.6 - 17.2 mg 02/03/21 09:00 02/04/21 08:51 Senna 8.6 Mg Tablet PO 8.6 mg DAILY GEORGIE Administration Sertraline HCl 50 mg 02/04/21 12:00 02/04/21 12:31 Sertraline 50 Mg Tablet PO 50 mg DAILY GEORGIE Administration Sodium Chloride 10 ml 01/29/21 17:09 01/29/21 18:39 Sodium Chloride Flush 0.9% 10 Ml Syringe IVP 10 ml PRN PRN Administration NEEDED PER PROVIDER ORDERS Sodium Chloride 10 ml 01/30/21 01:00 02/05/21 01:05 Sodium Chloride Flush 0.9% 10 Ml Syringe IVP 10 ml 0100,0900,1700 GEORGIE Administration Tamsulosin HCl 0.4 mg 02/03/21 09:00 02/04/21 08:51 Tamsulosin 0.4 Mg Capsule PO 0.4 mg DAILY GEORGIE Administration Throat Lozenges 1 lozenge 01/30/21 02:25 01/30/21 04:54 Benzocaine/Menthol Lozenge MM 1 lozenge Q2HR PRN Administration Throat pain Trazodone HCl 50 mg 02/02/21 21:00 02/04/21 21:12 Trazodone 50 Mg Tablet PO 50 mg QPM GEORGIE Administration - Lab Result Fish Bone Diagrams: 02/05/21 05:17 02/05/21 05:17 - Additional Planning My Orders: My Active Orders 02/04/21 08:29 LORazepam [Ativan] 0.5 mg PO Q8H PRN 02/04/21 11:21 Telemetry- [RC] Q4HR Echo Transthoracic Complete [ECHO] Routine 02/04/21 12:00 Sertraline [Zoloft] 50 mg PO DAILY 02/04/21 21:00 Apixaban [Eliquis] 5 mg PO BID Subjective - Subjective Patient Reports: Other (Patient appeared very tired and weak but was breathing comfortably on the high flow nasal cannula oxygen. He was seated in the bedside recliner.) Objective Vital Signs: Vital Signs - 24 hr 02/04/21 02/04/21 02/04/21 08:00 12:33 15:49 Temperature 36.5 C 36.5 C Heart Rate Heart Rate [ 61 78 71 Brachial] Respiratory 24 24 24 Rate Blood Pressure 113/93 H 93/63 88/54 L [Right Brachial artery] O2 Saturation 94 91 L 96 02/04/21 02/04/21 02/05/21 19:44 20:15 00:41 Temperature 36.4 C L Heart Rate 51 L Heart Rate [ 76 65 Brachial] Respiratory 18 20 22 Rate Blood Pressure 118/71 98/62 [Right Brachial artery] O2 Saturation 96 92 02/05/21 05:13 Temperature 36.4 C L Heart Rate Heart Rate [ 63 Brachial] Respiratory 18 Rate Blood Pressure 117/77 [Right Brachial artery] O2 Saturation 93 Oxygen O2 Source HHFNC Oxygen Flow Rate 2 I&O (Last 24 Hrs): Intake and Output Totals x24h 02/03/21 02/04/21 02/05/21 23:59 23:59 23:59 Intake Total 1603 1830 Output Total 2080 2950 800 Balance -477 -1120 -800 General: Alert, Oriented x3, Other (Weak and tired) HEENT: PERRLA, EOMI Neck: Supple, No JVD Neuro: Alert, Non Focal, Oriented Times 3 Cardiovascular: No murmurs, Other (irregularly irregular) Respiratory: Chest non-tender, Other (crackles in lung bases bilaterally) Abdomen: Normal bowel sounds, Soft, No tenderness, No masses Extremities: No clubbing, No edema, No tenderness/swelling - Results Results: Laboratory Results WBC 10.5 x10^3/uL (4.8-10.8) 02/05/21 05:17 RBC 3.46 10^6/uL (4.70-6.10) L 02/05/21 05:17 Hgb 11.4 g/dL (14.0-18.0) L 02/05/21 05:17 Hct 33.6 % (42.0-52.0) L 02/05/21 05:17 MCV 97.1 fL (80.0-94.0) H 02/05/21 05:17 MCH 32.9 pg (27.0-31.0) H 02/05/21 05:17 MCHC 33.9 g/dL (32.0-36.0) 02/05/21 05:17 RDW 13.4 % (12.0-15.0) 02/05/21 05:17 Plt Count 177 10^3/uL (130-450) 02/05/21 05:17 MPV 11.2 fL (7.4-11.4) 02/05/21 05:17 Neut # (Auto) 9.0 10^3/uL (1.5-6.6) H 02/05/21 05:17 Lymph # (Auto) 0.7 10^3/uL (1.5-3.5) L 02/05/21 05:17 [place] # (Auto) 0.7 10^3/uL (0.0-1.0) 02/05/21 05:17 Eos # (Auto) 0.0 10^3/uL (0.0-0.7) 02/05/21 05:17 Baso # (Auto) 0.0 10^3/uL (0.0-0.1) 02/05/21 05:17 Absolute Nucleated RBC 0.02 x10^3/uL 02/05/21 05:17 Nucleated RBC % 0.2 /100WBC 02/05/21 05:17 D-Dimer 348.8 ng/mL (200.0-255.0) H 01/29/21 16:35 Bld Gas Analysis Time 0802/04/21 08:03 Sample Site RIGHT RADIAL 02/04/21 08:03 ABG pH 7.60 (7.35-7.45) H* 02/04/21 08:03 ABG pCO2 32 mmHg (34-45) L 02/04/21 08:03 ABG pO2 63 mmHg (80-100) L 02/04/21 08:03 ABG HCO3 30.0 mmol/L (22.0-26.0) H 02/04/21 08:03 ABG Total CO2 31.0 MMOL/L (21.0-29.0) H 02/04/21 08:03 ABG O2 Saturation 94 % (94-98) 02/04/21 08:03 ABG Base Excess 8.5 mmol/L (-2.0-3.0) H 02/04/21 08:03 Choco Test POSITIVE 02/04/21 08:03 O2 Delivery Device HHFNC 02/04/21 08:03 O2 Liters/Min 40.00 LPM 02/04/21 08:03 FiO2 60.00 02/04/21 08:03 Sodium 139 mmol/L (135-145) 02/05/21 05:17 Potassium 4.8 mmol/L (3.5-5.0) 02/05/21 05:17 Chloride 98 mmol/L (101-111) L 02/05/21 05:17 Carbon Dioxide 32 mmol/L (21-32) 02/05/21 05:17 Anion Gap 9.0 (6-13) 02/05/21 05:17 BUN 52 mg/dL (6-20) H 02/05/21 05:17 Creatinine 0.8 mg/dL (0.6-1.2) 02/05/21 05:17 Estimated GFR (MDRD) 93 (>89) 02/05/21 05:17 Glucose 127 mg/dL (70-100) H 02/05/21 05:17 Lactic Acid 1.8 mmol/L (0.5-2.2) 01/29/21 16:35 Calcium 8.7 mg/dL (8.5-10.3) 02/05/21 05:17 Total Bilirubin 0.6 mg/dL (0.2-1.0) 01/29/21 16:35 AST 59 IU/L (10-42) H 01/29/21 16:35 ALT 27 IU/L (10-60) 01/29/21 16:35 Alkaline Phosphatase 37 IU/L (42-121) L 01/29/21 16:35 C-Reactive Protein 1.8 mg/dL (0-1.0) H 02/05/21 05:17 Total Protein 7.2 g/dL (6.7-8.2) 01/29/21 16:35 Albumin 3.7 g/dL (3.2-5.5) 01/29/21 16:35 Globulin 3.5 g/dL (2.1-4.2) 01/29/21 16:35 Albumin/Globulin Ratio 1.1 (1.0-2.2) 01/29/21 16:35 25-OH Vitamin D Total 64 ng/mL (30-100) 02/02/21 11:19 Nasal Adenovirus (PCR) NOT DETECTED 01/29/21 16:43 Nasal B. parapertussis DNA (PCR) NOT DETECTED 01/29/21 16:43 Nasal Coronavir 229E PCR NOT DETECTED 01/29/21 16:43 Nasal Coronavir HKU1 PCR NOT DETECTED 01/29/21 16:43 Nasal Coronavir NL63 PCR NOT DETECTED 01/29/21 16:43 Nasal Coronavir OC43 PCR NOT DETECTED 01/29/21 16:43 Nasal Enterovir/Rhinovir PCR NOT DETECTED 01/29/21 16:43 Nasal Influenza B PCR NOT DETECTED 01/29/21 16:43 Nasal Parainfluen 1 PCR NOT DETECTED 01/29/21 16:43 Nasal Parainfluen 2 PCR NOT DETECTED 01/29/21 16:43 Nasal Parainfluen 3 PCR NOT DETECTED 01/29/21 16:43 Nasal Parainfluen 4 PCR NOT DETECTED 01/29/21 16:43 Nasal RSV (PCR) NOT DETECTED 01/29/21 16:43 Nasal B.pertussis DNA PCR NOT DETECTED 01/29/21 16:43 Nasal C.pneumoniae (PCR) NOT DETECTED 01/29/21 16:43 Aaron Human Metapneumo PCR NOT DETECTED 01/29/21 16:43 Nasal M.pneumoniae (PCR) NOT DETECTED 01/29/21 16:43 Nasal SARS-CoV-2 (PCR) DETECTED A 01/29/21 16:43 ABX Reporting Has patient been on IV antibiotics over the past 48 hours?: No
[2021-02-05] MEDS: ALBUTEROL 1 PUFF INH PRN (08:23)
[2021-02-05] MEDS: DEXAMETHASONE 4 MG/ML VIAL IVP SCH (08:32)
[2021-02-05] MEDS: TAMSULOSIN 0.4 MG CAPSULE PO SCH (08:32)
[2021-02-05] MEDS: DOCUSATE SODIUM 250 MG CAPSULE PO SCH (08:32)
[2021-02-05] MEDS: SERTRALINE 50 MG TABLET PO SCH (08:32)
[2021-02-05] MEDS: LORazepam 0.5 MG TABLET PO PRN (08:33)
[2021-02-05] MEDS: APIXABAN 5 MG TABLET PO SCH ×2 (08:33→21:50)
[2021-02-05] MEDS: SENNA 8.6 MG TABLET PO SCH (08:34)
[2021-02-05] MEDS: polyethylene glycoL 3350 17 GM PACKET PO SCH (08:34)
[2021-02-05] MEDS ORDERED: THEOPHYLLINE ER 300 MG TABLET PO SCH (09:00)
[2021-02-05] MEDS ORDERED: FUROSEMIDE 20 MG/2 ML VIAL IVP STA (12:03)
[2021-02-05] MEDS: SODIUM CHLORIDE FLUSH 0.9% 10 ML SYRINGE IVP PRN (13:00)
[2021-02-05] MEDS: ACETAMINOPHEN 325 MG TABLET PO PRN (21:51)
[2021-02-05] MEDS: traZODone 50 MG TABLET PO SCH (22:05)
[2021-02-06] MEDS: SODIUM CHLORIDE FLUSH 0.9% 10 ML SYRINGE IVP SCH ×3 (00:16→17:23)
[2021-02-06] MEDS: LORazepam 0.5 MG TABLET PO PRN ×2 (05:55→19:38)
--- NOTE | 2021-02-06 07:23 | PROVIDER PROGRESS NOTE ---
Assessment/Plan - Problem List (1) Acute respiratory failure with hypoxia Assessment/Plan: Secondary to COVID-19 pneumonia. Currently on 40 L of oxygen via high blue nasal cannula at an FiO2 of 60% with oxygen saturation at 90-93% This is an improvement in his oxygen requirement from the previous day Patient completed remdesivir on 02/02/21 Decadron increased to 10mg IV daily. Last day 02/07/21 Then switch to Decadron 6mg po daily Morphine for air hunger. Ativan for anxiety Continue DVT prophylaxis with Lovenox 40 mg subcu daily. (2) COVID-19 Assessment/Plan: Secondary to COVID-19 pneumonia. Currently on 40 L of oxygen via high blue nasal cannula at an FiO2 of 60% with oxygen saturation at 90-93% This is an improvement in his oxygen requirement from the previous day Patient completed remdesivir on 02/02/21 Decadron increased to 10mg IV daily. Last day 02/07/21 Then switch to Decadron 6mg po daily Morphine for air hunger. Ativan for anxiety Continue DVT prophylaxis with Lovenox 40 mg subcu daily. (3) Atrial fibrillation Assessment/Plan: Eliquis 5 mg p.o. twice daily. 2D echocardiogram done on 02/04/21 Showed an ejection fraction of 65 to 70%. Overall left ventricular systolic function is normal. There was no evidence of aortic stenosis. There was mild aortic valve sclerosis. - Current Meds Current Meds: Current Medications Generic Name Dose Route Start Last Admin Trade Name Freq PRN Reason Stop Dose Admin Acetaminophen 650 mg 01/29/21 17:09 02/05/21 21:51 Acetaminophen 325 Mg Tablet PO 650 mg Q4HR PRN Administration Pain 1 to 4 Albuterol 2 puffs 01/30/21 08:37 02/05/21 08:23 Albuterol 1 Puff INH 2 puffs Q4HR PRN Administration Wheezing Apixaban 5 mg 02/04/21 21:00 02/05/21 21:50 Apixaban 5 Mg Tablet PO 5 mg BID GEORGIE Administration Dexamethasone 10 mg 02/03/21 09:00 02/05/21 08:32 Dexamethasone 4 Mg/Ml Vial IVP 02/07/21 09:01 10 mg DAILY GEORGIE Administration Docusate Sodium 250 - 500 mg 02/03/21 09:00 02/05/21 08:32 Docusate Sodium 250 Mg Capsule PO 250 mg DAILY GEORGIE Administration Lorazepam 0.5 mg 02/04/21 08:29 02/06/21 05:55 Lorazepam 0.5 Mg Tablet PO 0.5 mg Q8H PRN Administration Anxiety Ondansetron HCl 4 mg 01/29/21 17:09 01/30/21 22:04 Ondansetron Odt 4 Mg Tablet TL 4 mg Q6HR PRN Administration Nausea / Vomiting Oxycodone HCl 5 mg 01/29/21 17:09 02/05/21 13:00 Oxycodone 5 Mg Tablet PO 5 mg Q4HR PRN Administration Pain 5 to 7 Polyethylene Glycol 17 gm 02/01/21 09:00 02/05/21 08:34 Polyethylene Glycol 3350 17 Gm Packet PO Not Given DAILY GEORGIE Senna 8.6 - 17.2 mg 02/03/21 09:00 02/05/21 08:34 Senna 8.6 Mg Tablet PO Not Given DAILY GEORGIE Sertraline HCl 50 mg 02/04/21 12:00 02/05/21 08:32 Sertraline 50 Mg Tablet PO 50 mg DAILY GEORGIE Administration Sodium Chloride 10 ml 01/29/21 17:09 02/05/21 13:00 Sodium Chloride Flush 0.9% 10 Ml Syringe IVP 10 ml PRN PRN Administration NEEDED PER PROVIDER ORDERS Sodium Chloride 10 ml 01/30/21 01:00 02/06/21 00:16 Sodium Chloride Flush 0.9% 10 Ml Syringe IVP 10 ml 0100,0900,1700 GEORGIE Administration Tamsulosin HCl 0.4 mg 02/03/21 09:00 02/05/21 08:32 Tamsulosin 0.4 Mg Capsule PO 0.4 mg DAILY GEORGIE Administration Throat Lozenges 1 lozenge 01/30/21 02:25 01/30/21 04:54 Benzocaine/Menthol Lozenge MM 1 lozenge Q2HR PRN Administration Throat pain Trazodone HCl 50 mg 02/02/21 21:00 02/05/21 22:05 Trazodone 50 Mg Tablet PO 50 mg QPM GEORGIE Administration - Lab Result Fish Bone Diagrams: 02/06/21 07:30 02/06/21 07:30 - Additional Planning My Orders: My Active Orders 02/06/21 07:20 BMP - BASIC METABOLIC PANEL [CHEM] Routine CBC - COMP BLD CT W/AUTO DIFF [HEME] Routine 02/07/21 05:00 BMP - BASIC METABOLIC PANEL [CHEM] DAILYLAB CBC - COMP BLD CT W/AUTO DIFF [HEME] DAILYLAB 02/08/21 05:00 BMP - BASIC METABOLIC PANEL [CHEM] DAILYLAB CBC - COMP BLD CT W/AUTO DIFF [HEME] DAILYLAB 02/09/21 05:00 BMP - BASIC METABOLIC PANEL [CHEM] DAILYLAB CBC - COMP BLD CT W/AUTO DIFF [HEME] DAILYLAB 02/10/21 05:00 BMP - BASIC METABOLIC PANEL [CHEM] DAILYLAB CBC - COMP BLD CT W/AUTO DIFF [HEME] DAILYLAB 02/11/21 05:00 BMP - BASIC METABOLIC PANEL [CHEM] DAILYLAB CBC - COMP BLD CT W/AUTO DIFF [HEME] DAILYLAB Subjective - Subjective Patient Reports: Other (Patient was resting comfortably in bedside recliner. There is improvement in his respiratory status today. Urine appears very dark. Patient requirement decreased to an FiO2 of 60% at 40 L with an O2Sat of 90-93%) Objective Vital Signs: Vital Signs - 24 hr 02/05/21 02/05/21 02/05/21 08:07 08:30 08:42 Temperature 36.4 C L Heart Rate 65 Heart Rate [ 65 Brachial] Respiratory 28 H 28 H 20 Rate Blood Pressure [Left Brachial artery] Blood Pressure 102/81 H [Right Brachial artery] O2 Saturation 90 L 95 02/05/21 02/05/21 02/05/21 12:32 15:22 19:45 Temperature 36.4 C L 36.4 C L Heart Rate 78 Heart Rate [ 75 65 Brachial] Respiratory 20 20 22 Rate Blood Pressure 91/65 [Left Brachial artery] Blood Pressure 103/67 [Right Brachial artery] O2 Saturation 94 97 02/05/21 02/06/21 02/06/21 20:33 00:17 00:22 Temperature 36.3 C L 36.1 C L Heart Rate Heart Rate [ 71 82 Brachial] Respiratory 18 18 Rate Blood Pressure 110/75 [Left Brachial artery] Blood Pressure 117/76 [Right Brachial artery] O2 Saturation 97 99 96 02/06/21 05:55 Temperature 36.4 C L Heart Rate Heart Rate [ 62 Brachial] Respiratory 20 Rate Blood Pressure [Left Brachial artery] Blood Pressure 107/55 L [Right Brachial artery] O2 Saturation 92 Oxygen O2 Source HHFNC Oxygen Flow Rate 2 I&O (Last 24 Hrs): Intake and Output Totals x24h 02/04/21 02/05/21 02/06/21 23:59 23:59 23:59 Intake Total 1830 660 400 Output Total 2950 0564 425 Balance -1120 -1615 -25 General: Alert, Oriented x3, Mild distress HEENT: PERRLA, EOMI Neck: Supple, No JVD Neuro: Alert, Non Focal, Oriented Times 3 Cardiovascular: Regular rate Respiratory: Chest non-tender, Other (Mild crackles bilaterally) Abdomen: Normal bowel sounds, Soft, No tenderness Extremities: No clubbing, No cyanosis, No edema Skin: No rashes, No breakdown, No significant lesion - Results Results: Laboratory Results WBC 10.5 x10^3/uL (4.8-10.8) 02/05/21 05:17 RBC 3.46 10^6/uL (4.70-6.10) L 02/05/21 05:17 Hgb 11.4 g/dL (14.0-18.0) L 02/05/21 05:17 Hct 33.6 % (42.0-52.0) L 02/05/21 05:17 MCV 97.1 fL (80.0-94.0) H 02/05/21 05:17 MCH 32.9 pg (27.0-31.0) H 02/05/21 05:17 MCHC 33.9 g/dL (32.0-36.0) 02/05/21 05:17 RDW 13.4 % (12.0-15.0) 02/05/21 05:17 Plt Count 177 10^3/uL (130-450) 02/05/21 05:17 MPV 11.2 fL (7.4-11.4) 02/05/21 05:17 Neut # (Auto) 9.0 10^3/uL (1.5-6.6) H 02/05/21 05:17 Lymph # (Auto) 0.7 10^3/uL (1.5-3.5) L 02/05/21 05:17 [place] # (Auto) 0.7 10^3/uL (0.0-1.0) 02/05/21 05:17 Eos # (Auto) 0.0 10^3/uL (0.0-0.7) 02/05/21 05:17 Baso # (Auto) 0.0 10^3/uL (0.0-0.1) 02/05/21 05:17 Absolute Nucleated RBC 0.02 x10^3/uL 02/05/21 05:17 Nucleated RBC % 0.2 /100WBC 02/05/21 05:17 D-Dimer 348.8 ng/mL (200.0-255.0) H 01/29/21 16:35 Bld Gas Analysis Time 0812 02/04/21 08:03 Sample Site RIGHT RADIAL 02/04/21 08:03 ABG pH 7.60 (7.35-7.45) H* 02/04/21 08:03 ABG pCO2 32 mmHg (34-45) L 02/04/21 08:03 ABG pO2 63 mmHg (80-100) L 02/04/21 08:03 ABG HCO3 30.0 mmol/L (22.0-26.0) H 02/04/21 08:03 ABG Total CO2 31.0 MMOL/L (21.0-29.0) H 02/04/21 08:03 ABG O2 Saturation 94 % (94-98) 02/04/21 08:03 ABG Base Excess 8.5 mmol/L (-2.0-3.0) H 02/04/21 08:03 Choco Test POSITIVE 02/04/21 08:03 O2 Delivery Device HHFNC 02/04/21 08:03 O2 Liters/Min 40.00 LPM 02/04/21 08:03 FiO2 60.00 02/04/21 08:03 Sodium 139 mmol/L (135-145) 02/05/21 05:17 Potassium 4.8 mmol/L (3.5-5.0) 02/05/21 05:17 Chloride 98 mmol/L (101-111) L 02/05/21 05:17 Carbon Dioxide 32 mmol/L (21-32) 02/05/21 05:17 Anion Gap 9.0 (6-13) 02/05/21 05:17 BUN 52 mg/dL (6-20) H 02/05/21 05:17 Creatinine 0.8 mg/dL (0.6-1.2) 02/05/21 05:17 Estimated GFR (MDRD) 93 (>89) 02/05/21 05:17 Glucose 127 mg/dL (70-100) H 02/05/21 05:17 Lactic Acid 1.8 mmol/L (0.5-2.2) 01/29/21 16:35 Calcium 8.7 mg/dL (8.5-10.3) 02/05/21 05:17 Total Bilirubin 0.6 mg/dL (0.2-1.0) 01/29/21 16:35 AST 59 IU/L (10-42) H 01/29/21 16:35 ALT 27 IU/L (10-60) 01/29/21 16:35 Alkaline Phosphatase 37 IU/L (42-121) L 01/29/21 16:35 C-Reactive Protein 1.8 mg/dL (0-1.0) H 02/05/21 05:17 Total Protein 7.2 g/dL (6.7-8.2) 01/29/21 16:35 Albumin 3.7 g/dL (3.2-5.5) 01/29/21 16:35 Globulin 3.5 g/dL (2.1-4.2) 01/29/21 16:35 Albumin/Globulin Ratio 1.1 (1.0-2.2) 01/29/21 16:35 25-OH Vitamin D Total 64 ng/mL (30-100) 02/02/21 11:19 Nasal Adenovirus (PCR) NOT DETECTED 01/29/21 16:43 Nasal B. parapertussis DNA (PCR) NOT DETECTED 01/29/21 16:43 Nasal Coronavir 229E PCR NOT DETECTED 01/29/21 16:43 Nasal Coronavir HKU1 PCR NOT DETECTED 01/29/21 16:43 Nasal Coronavir NL63 PCR NOT DETECTED 01/29/21 16:43 Nasal Coronavir OC43 PCR NOT DETECTED 01/29/21 16:43 Nasal Enterovir/Rhinovir PCR NOT DETECTED 01/29/21 16:43 Nasal Influenza B PCR NOT DETECTED 01/29/21 16:43 Nasal Parainfluen 1 PCR NOT DETECTED 01/29/21 16:43 Nasal Parainfluen 2 PCR NOT DETECTED 01/29/21 16:43 Nasal Parainfluen 3 PCR NOT DETECTED 01/29/21 16:43 Nasal Parainfluen 4 PCR NOT DETECTED 01/29/21 16:43 Nasal RSV (PCR) NOT DETECTED 01/29/21 16:43 Nasal B.pertussis DNA PCR NOT DETECTED 01/29/21 16:43 Nasal C.pneumoniae (PCR) NOT DETECTED 01/29/21 16:43 Aaron Human Metapneumo PCR NOT DETECTED 01/29/21 16:43 Nasal M.pneumoniae (PCR) NOT DETECTED 01/29/21 16:43 Nasal SARS-CoV-2 (PCR) DETECTED A 01/29/21 16:43 ABX Reporting Has patient been on IV antibiotics over the past 48 hours?: No
[2021-02-06 07:40] LABS: BASOPHILS % (AUTO) 0.1 %; HCT - HEMATOCRIT 34.8 % (42.0-52.0); HGB - HEMOGLOBIN 11.8 g/dL (14.0-18.0); LYMPHOCYTES # (AUTO) 0.5 10^3/uL (1.5-3.5); LYMPHOCYTES % (AUTO) 4.3 %; MEAN CORPUSCULAR HEMOGLOBIN 33.1 pg (27.0-31.0); MEAN CORPUSCULAR HGB CONC 33.9 g/dL (32.0-36.0); MEAN CORPUSCULAR VOLUME 97.5 fL (80.0-94.0); MEAN PLATELET VOLUME 10.4 fL (7.4-11.4); MONOCYTES # (AUTO) 0.4 10^3/uL (0.0-1.0); MONOCYTES % (AUTO) 3.1 %; NEUTROPHILS # (AUTO) 10.8 10^3/uL (1.5-6.6); NEUTROPHILS % (AUTO) 90.3 %; PLT - PLATELET COUNT 172 10^3/uL (130-450); RED BLOOD COUNT 3.57 10^6/uL (4.70-6.10); WHITE BLOOD COUNT 11.9 x10^3/uL (4.8-10.8)
[2021-02-06 07:47] LABS: CALCIUM 8.6 mg/dL (8.5-10.3); CREATININE 0.9 mg/dL (0.6-1.2)
[2021-02-06] MEDS: ACETAMINOPHEN 325 MG TABLET PO PRN ×2 (08:54→19:38)
[2021-02-06] MEDS: APIXABAN 5 MG TABLET PO SCH ×2 (08:54→21:39)
[2021-02-06] MEDS: TAMSULOSIN 0.4 MG CAPSULE PO SCH (08:54)
[2021-02-06] MEDS: SERTRALINE 50 MG TABLET PO SCH (08:54)
[2021-02-06] MEDS: DOCUSATE SODIUM 250 MG CAPSULE PO SCH (08:54)
[2021-02-06] MEDS: polyethylene glycoL 3350 17 GM PACKET PO SCH (08:55)
[2021-02-06] MEDS: DEXAMETHASONE 4 MG/ML VIAL IVP SCH (08:55)
[2021-02-06] MEDS: SENNA 8.6 MG TABLET PO SCH (08:55)
[2021-02-06] MEDS: ALBUTEROL 1 PUFF INH PRN (17:36)
[2021-02-06] MEDS: traZODone 50 MG TABLET PO SCH (21:39)
[2021-02-07] MEDS: LIDOCAINE PATCH 5% TOP PRN (01:08)
[2021-02-07] MEDS: LORazepam 0.5 MG TABLET PO PRN ×3 (01:08→19:53)
[2021-02-07] MEDS: SODIUM CHLORIDE FLUSH 0.9% 10 ML SYRINGE IVP SCH ×4 (01:08→22:59)
[2021-02-07 05:43] LABS: BASOPHILS % (AUTO) 0.2 %; EOSINOPHILS % (AUTO) 0.1 %; HCT - HEMATOCRIT 32.4 % (42.0-52.0); HGB - HEMOGLOBIN 10.8 g/dL (14.0-18.0); LYMPHOCYTES # (AUTO) 0.5 10^3/uL (1.5-3.5); LYMPHOCYTES % (AUTO) 4.3 %; MEAN CORPUSCULAR HEMOGLOBIN 32.4 pg (27.0-31.0); MEAN CORPUSCULAR HGB CONC 33.3 g/dL (32.0-36.0); MEAN CORPUSCULAR VOLUME 97.3 fL (80.0-94.0); MEAN PLATELET VOLUME 9.9 fL (7.4-11.4); MONOCYTES # (AUTO) 0.3 10^3/uL (0.0-1.0); MONOCYTES % (AUTO) 2.7 %; NEUTROPHILS # (AUTO) 11.1 10^3/uL (1.5-6.6); NEUTROPHILS % (AUTO) 90.9 %; PLT - PLATELET COUNT 172 10^3/uL (130-450); RED BLOOD COUNT 3.33 10^6/uL (4.70-6.10); WHITE BLOOD COUNT 12.2 x10^3/uL (4.8-10.8)
[2021-02-07 05:50] LABS: CALCIUM 8.2 mg/dL (8.5-10.3); CREATININE 0.8 mg/dL (0.6-1.2); POTASSIUM 4.3 mmol/L (3.5-5.0)
--- NOTE | 2021-02-07 07:36 | PROVIDER PROGRESS NOTE ---
Assessment/Plan - Problem List (1) Acute respiratory failure with hypoxia Assessment/Plan: Secondary to COVID-19 pneumonia. Currently on 40 L of oxygen via high blue nasal cannula at an FiO2 of 70% with oxygen saturation at 94% Patient completed remdesivir on 02/02/21 Decadron increased to 10mg IV daily. Last day 02/07/21 Then switch to Decadron 6mg po daily Cefepime and azithromycin were added on 02/07/2021 due to a mildly elevated WBC Morphine for air hunger. Ativan for anxiety Continue DVT prophylaxis with Lovenox 40 mg subcu daily. (2) COVID-19 Assessment/Plan: Currently on 40 L of oxygen via high blue nasal cannula at an FiO2 of 70% with oxygen saturation at 94% Patient completed remdesivir on 02/02/21 Decadron increased to 10mg IV daily. Last day 02/07/21 Then switch to Decadron 6mg po daily Cefepime and azithromycin were added on 02/07/2021 due to a mildly elevated WBC Morphine for air hunger. Ativan for anxiety Continue DVT prophylaxis with Lovenox 40 mg subcu daily. (3) Atrial fibrillation Assessment/Plan: Eliquis 5 mg p.o. twice daily. 2D echocardiogram done on 02/04/21 Showed an ejection fraction of 65 to 70%. Overall left ventricular systolic function is normal. There was no evidence of aortic stenosis. There was mild aortic valve sclerosis. - Current Meds Current Meds: Current Medications Generic Name Dose Route Start Last Admin Trade Name Freq PRN Reason Stop Dose Admin Acetaminophen 650 mg 01/29/21 17:09 02/06/21 19:38 Acetaminophen 325 Mg Tablet PO 650 mg Q4HR PRN Administration Pain 1 to 4 Albuterol 2 puffs 01/30/21 08:37 02/06/21 17:36 Albuterol 1 Puff INH 2 puffs Q4HR PRN Administration Wheezing Apixaban 5 mg 02/04/21 21:00 02/06/21 21:39 Apixaban 5 Mg Tablet PO 5 mg BID GEORGIE Administration Dexamethasone 10 mg 02/03/21 09:00 02/06/21 08:55 Dexamethasone 4 Mg/Ml Vial IVP 02/07/21 09:01 10 mg DAILY GEORGIE Administration Docusate Sodium 250 - 500 mg 02/03/21 09:00 02/06/21 08:54 Docusate Sodium 250 Mg Capsule PO 250 mg DAILY GEORGIE Administration Lidocaine 1 patch 02/06/21 15:29 02/07/21 01:08 Lidocaine Patch 5% TOP 1 patch DAILY PRN Administration PAIN Lorazepam 0.5 mg 02/06/21 15:29 02/07/21 01:08 Lorazepam 0.5 Mg Tablet PO 0.5 mg Q6H PRN Administration Anxiety Ondansetron HCl 4 mg 01/29/21 17:09 01/30/21 22:04 Ondansetron Odt 4 Mg Tablet TL 4 mg Q6HR PRN Administration Nausea / Vomiting Oxycodone HCl 5 mg 01/29/21 17:09 02/05/21 13:00 Oxycodone 5 Mg Tablet PO 5 mg Q4HR PRN Administration Pain 5 to 7 Polyethylene Glycol 17 gm 02/01/21 09:00 02/06/21 08:55 Polyethylene Glycol 3350 17 Gm Packet PO Not Given DAILY GEORGIE Senna 8.6 - 17.2 mg 02/03/21 09:00 02/06/21 08:55 Senna 8.6 Mg Tablet PO Not Given DAILY GEORGIE Sertraline HCl 50 mg 02/04/21 12:00 02/06/21 08:54 Sertraline 50 Mg Tablet PO 50 mg DAILY GEORGIE Administration Sodium Chloride 10 ml 01/29/21 17:09 02/05/21 13:00 Sodium Chloride Flush 0.9% 10 Ml Syringe IVP 10 ml PRN PRN Administration NEEDED PER PROVIDER ORDERS Sodium Chloride 10 ml 01/30/21 01:00 02/07/21 01:08 Sodium Chloride Flush 0.9% 10 Ml Syringe IVP 10 ml 0100,0900,1700 GEORGIE Administration Tamsulosin HCl 0.4 mg 02/03/21 09:00 02/06/21 08:54 Tamsulosin 0.4 Mg Capsule PO 0.4 mg DAILY GEORGIE Administration Throat Lozenges 1 lozenge 01/30/21 02:25 01/30/21 04:54 Benzocaine/Menthol Lozenge MM 1 lozenge Q2HR PRN Administration Throat pain Trazodone HCl 50 mg 02/02/21 21:00 02/06/21 21:39 Trazodone 50 Mg Tablet PO 50 mg QPM GEORGIE Administration - Lab Result Fish Bone Diagrams: 02/07/21 05:34 02/07/21 05:34 - Additional Planning My Orders: My Active Orders 02/06/21 15:29 LORazepam [Ativan] 0.5 mg PO Q6H PRN Lidocaine Patch 5% [Lidoderm Patch] 1 patch TOP DAILY PRN 02/07/21 09:00 Azithromycin Inj [Zithromax Inj] 500 mg Sodium Chloride 0.9% [Normal Saline 0.9%] 250 ml IV DAILY cefTRIAXone [Rocephin] 1 gm Sodium Chloride 0.9% Minibag [Normal Saline 0.9% Minibag] 100 ml IV DAILY 02/08/21 05:00 BMP - BASIC METABOLIC PANEL [CHEM] DAILYLAB CBC - COMP BLD CT W/AUTO DIFF [HEME] DAILYLAB 02/08/21 09:00 dexAMETHasone [Decadron] 6 mg PO DAILY 02/09/21 05:00 BMP - BASIC METABOLIC PANEL [CHEM] DAILYLAB CBC - COMP BLD CT W/AUTO DIFF [HEME] DAILYLAB 02/10/21 05:00 BMP - BASIC METABOLIC PANEL [CHEM] DAILYLAB CBC - COMP BLD CT W/AUTO DIFF [HEME] DAILYLAB 02/11/21 05:00 BMP - BASIC METABOLIC PANEL [CHEM] DAILYLAB CBC - COMP BLD CT W/AUTO DIFF [HEME] DAILYLAB Subjective - Subjective Patient Reports: Other (Patient's respiratory status continues to improve today. However he is still weakness. His urine is very dark/karlee color) Objective Vital Signs: Vital Signs - 24 hr 02/06/21 02/06/21 02/06/21 07:45 12:57 16:05 Temperature 36.4 C L 36.3 C L 36.7 C Heart Rate Heart Rate [ 62 62 94 Brachial] Respiratory 20 20 16 Rate Blood Pressure 107/55 L 109/64 114/68 [Right Brachial artery] O2 Saturation 92 94 97 02/06/21 02/06/21 02/07/21 17:43 20:59 01:00 Temperature 36.5 C 36.6 C Heart Rate 66 Heart Rate [ 69 68 Brachial] Respiratory 18 24 21 Rate Blood Pressure 123/84 H 116/74 [Right Brachial artery] O2 Saturation 97 95 02/07/21 05:32 Temperature 36.4 C L Heart Rate Heart Rate [ 68 Brachial] Respiratory 20 Rate Blood Pressure 116/64 [Right Brachial artery] O2 Saturation 95 Oxygen O2 Source FNC Oxygen Flow Rate 2 I&O (Last 24 Hrs): Intake and Output Totals x24h 02/05/21 02/06/21 02/07/21 23:59 23:59 23:59 Intake Total 660 1340 100 Output Total 2275 1300 600 Balance -1615 40 -500 General: Alert, Oriented x3, Mild distress HEENT: PERRLA, EOMI Neck: Supple, No JVD Neuro: Alert, Non Focal, Oriented Times 3 Cardiovascular: Other (irregularly irregular) Respiratory: Chest non-tender, Other (mild crackles in lung bases) Abdomen: Normal bowel sounds, Soft, No tenderness, No masses Extremities: No clubbing, No cyanosis, No edema, No tenderness/swelling Skin: No rashes, No breakdown, No significant lesion - Results Results: Laboratory Results WBC 12.2 x10^3/uL (4.8-10.8) H 02/07/21 05:34 RBC 3.33 10^6/uL (4.70-6.10) L 02/07/21 05:34 Hgb 10.8 g/dL (14.0-18.0) L 02/07/21 05:34 Hct 32.4 % (42.0-52.0) L 02/07/21 05:34 MCV 97.3 fL (80.0-94.0) H 02/07/21 05:34 MCH 32.4 pg (27.0-31.0) H 02/07/21 05:34 MCHC 33.3 g/dL (32.0-36.0) 02/07/21 05:34 RDW 13.0 % (12.0-15.0) 02/07/21 05:34 Plt Count 172 10^3/uL (130-450) 02/07/21 05:34 MPV 9.9 fL (7.4-11.4) 02/07/21 05:34 Neut # (Auto) 11.1 10^3/uL (1.5-6.6) H 02/07/21 05:34 Lymph # (Auto) 0.5 10^3/uL (1.5-3.5) L 02/07/21 05:34 [place] # (Auto) 0.3 10^3/uL (0.0-1.0) 02/07/21 05:34 Eos # (Auto) 0.0 10^3/uL (0.0-0.7) 02/07/21 05:34 Baso # (Auto) 0.0 10^3/uL (0.0-0.1) 02/07/21 05:34 Absolute Nucleated RBC 0.00 x10^3/uL 02/07/21 05:34 Nucleated RBC % 0.0 /100WBC 02/07/21 05:34 D-Dimer 348.8 ng/mL (200.0-255.0) H 01/29/21 16:35 Bld Gas Analysis Time 0812 02/04/21 08:03 Sample Site RIGHT RADIAL 02/04/21 08:03 ABG pH 7.60 (7.35-7.45) H* 02/04/21 08:03 ABG pCO2 32 mmHg (34-45) L 02/04/21 08:03 ABG pO2 63 mmHg (80-100) L 02/04/21 08:03 ABG HCO3 30.0 mmol/L (22.0-26.0) H 02/04/21 08:03 ABG Total CO2 31.0 MMOL/L (21.0-29.0) H 02/04/21 08:03 ABG O2 Saturation 94 % (94-98) 02/04/21 08:03 ABG Base Excess 8.5 mmol/L (-2.0-3.0) H 02/04/21 08:03 [place]oco Test POSITIVE 02/04/21 08:03 O2 Delivery Device HHFNC 02/04/21 08:03 O2 Liters/Min 40.00 LPM 02/04/21 08:03 FiO2 60.00 02/04/21 08:03 Sodium 134 mmol/L (135-145) L 02/07/21 05:34 Potassium 4.3 mmol/L (3.5-5.0) 02/07/21 05:34 Chloride 95 mmol/L (101-111) L 02/07/21 05:34 Carbon Dioxide 31 mmol/L (21-32) 02/07/21 05:34 Anion Gap 8.0 (6-13) 02/07/21 05:34 BUN 38 mg/dL (6-20) H 02/07/21 05:34 Creatinine 0.8 mg/dL (0.6-1.2) 02/07/21 05:34 Estimated GFR (MDRD) 93 (>89) 02/07/21 05:34 Glucose 92 mg/dL (70-100) 02/07/21 05:34 Lactic Acid 1.8 mmol/L (0.5-2.2) 01/29/21 16:35 Calcium 8.2 mg/dL (8.5-10.3) L 02/07/21 05:34 Total Bilirubin 0.6 mg/dL (0.2-1.0) 01/29/21 16:35 AST 59 IU/L (10-42) H 01/29/21 16:35 ALT 27 IU/L (10-60) 01/29/21 16:35 Alkaline Phosphatase 37 IU/L (42-121) L 01/29/21 16:35 C-Reactive Protein 1.8 mg/dL (0-1.0) H 02/05/21 05:17 Total Protein 7.2 g/dL (6.7-8.2) 01/29/21 16:35 Albumin 3.7 g/dL (3.2-5.5) 01/29/21 16:35 Globulin 3.5 g/dL (2.1-4.2) 01/29/21 16:35 Albumin/Globulin Ratio 1.1 (1.0-2.2) 01/29/21 16:35 25-OH Vitamin D Total 64 ng/mL (30-100) 02/02/21 11:19 Nasal Adenovirus (PCR) NOT DETECTED 01/29/21 16:43 Nasal B. parapertussis DNA (PCR) NOT DETECTED 01/29/21 16:43 Nasal Coronavir 229E PCR NOT DETECTED 01/29/21 16:43 Nasal Coronavir HKU1 PCR NOT DETECTED 01/29/21 16:43 Nasal Coronavir NL63 PCR NOT DETECTED 01/29/21 16:43 Nasal Coronavir OC43 PCR NOT DETECTED 01/29/21 16:43 Nasal Enterovir/Rhinovir PCR NOT DETECTED 01/29/21 16:43 Nasal Influenza B PCR NOT DETECTED 01/29/21 16:43 Nasal Parainfluen 1 PCR NOT DETECTED 01/29/21 16:43 Nasal Parainfluen 2 PCR NOT DETECTED 01/29/21 16:43 Nasal Parainfluen 3 PCR NOT DETECTED 01/29/21 16:43 Nasal Parainfluen 4 PCR NOT DETECTED 01/29/21 16:43 Nasal RSV (PCR) NOT DETECTED 01/29/21 16:43 Nasal B.pertussis DNA PCR NOT DETECTED 01/29/21 16:43 Nasal C.pneumoniae (PCR) NOT DETECTED 01/29/21 16:43 Aaron Human Metapneumo PCR NOT DETECTED 01/29/21 16:43 Nasal M.pneumoniae (PCR) NOT DETECTED 01/29/21 16:43 Nasal SARS-CoV-2 (PCR) DETECTED A 01/29/21 16:43 ABX Reporting Has patient been on IV antibiotics over the past 48 hours?: Yes
[2021-02-07] MEDS: ALBUTEROL 1 PUFF INH PRN (08:02)
[2021-02-07] MEDS: APIXABAN 5 MG TABLET PO SCH ×2 (08:29→20:58)
[2021-02-07] MEDS: TAMSULOSIN 0.4 MG CAPSULE PO SCH (08:29)
[2021-02-07] MEDS: oxyCODONE 5 MG TABLET PO PRN ×2 (08:29→22:59)
[2021-02-07] MEDS: SERTRALINE 50 MG TABLET PO SCH (08:29)
[2021-02-07] MEDS: DOCUSATE SODIUM 250 MG CAPSULE PO SCH (08:29)
[2021-02-07] MEDS: DEXAMETHASONE 4 MG/ML VIAL IVP SCH (08:29)
[2021-02-07] MEDS: SENNA 8.6 MG TABLET PO SCH (08:30)
[2021-02-07] MEDS: polyethylene glycoL 3350 17 GM PACKET PO SCH (08:30)
[2021-02-07] MEDS ORDERED: cefTRIAXone 1 GM in SODIUM CHLORIDE 0.9% MINIBAG 100 ML IV SCH (09:00)
[2021-02-07] MEDS: SODIUM CHLORIDE FLUSH 0.9% 10 ML SYRINGE IVP PRN (10:43)
[2021-02-07] MEDS: CEFEPIME 2 GM in SODIUM CHLORIDE 0.9% MINIBAG 100 ML IV SCH ×2 (10:43→20:58)
[2021-02-07] MEDS: AZITHROMYCIN INJ 500 MG in SODIUM CHLORIDE 0.9% 250 ML IV SCH (10:45)
[2021-02-07] MEDS: traZODone 50 MG TABLET PO SCH (20:58)
[2021-02-07] MEDS: OXYMETAZOLINE HCL 100 SPRAYS BOTTLE NAS PRN (21:41)
[2021-02-08 05:45] LABS: BASOPHILS % (AUTO) 0.2 %; HCT - HEMATOCRIT 31.6 % (42.0-52.0); HGB - HEMOGLOBIN 10.7 g/dL (14.0-18.0); LYMPHOCYTES # (AUTO) 0.5 10^3/uL (1.5-3.5); LYMPHOCYTES % (AUTO) 3.8 %; MEAN CORPUSCULAR HEMOGLOBIN 32.9 pg (27.0-31.0); MEAN CORPUSCULAR HGB CONC 33.9 g/dL (32.0-36.0); MEAN CORPUSCULAR VOLUME 97.2 fL (80.0-94.0); MEAN PLATELET VOLUME 10.8 fL (7.4-11.4); MONOCYTES # (AUTO) 0.2 10^3/uL (0.0-1.0); MONOCYTES % (AUTO) 1.9 %; NEUTROPHILS % (AUTO) 91.8 %; PLT - PLATELET COUNT 179 10^3/uL (130-450); RED BLOOD COUNT 3.25 10^6/uL (4.70-6.10)
[2021-02-08 05:54] LABS: CALCIUM 8.4 mg/dL (8.5-10.3); CREATININE 0.8 mg/dL (0.6-1.2); POTASSIUM 4.6 mmol/L (3.5-5.0)
--- NOTE | 2021-02-08 07:40 | PROVIDER PROGRESS NOTE ---
Subjective - Prog Note Date Prog Note Date: 02/08/21 - Subjective Subjective: He feels better this afternoon compared to the morning. Still feels short of breath and has a nonproductive cough. He does not take Flomax anymore due to his low blood pressure which she states is chronic for him. He eats a lot of salt at home because of the low blood pressure. Current Medications - Current Medications Current Medications: Active Medications Acetaminophen (Acetaminophen 325 Mg Tablet) 650 mg PO Q4HR PRN PRN Reason: Pain 1 to 4 Last Admin: 02/08/21 09:24 Dose: 650 mg Documented by: Albuterol (Albuterol 1 Puff) 2 puffs INH Q4HR PRN PRN Reason: Wheezing Last Admin: 02/07/21 08:02 Dose: 2 puffs Documented by: Apixaban (Apixaban 5 Mg Tablet) 5 mg PO BID [facility] Last Admin: 02/08/21 07:57 Dose: 5 mg Documented by: Cholecalciferol (Cholecalciferol 25 Mcg Tablet) 50 mcg PO DAILY [facility] Last Admin: 02/08/21 09:18 Dose: 50 mcg Documented by: Docusate Sodium (Docusate Sodium 250 Mg Capsule) 250 - 500 mg PO DAILY [facility] Last Admin: 02/08/21 07:57 Dose: 250 mg Documented by: Azithromycin 500 mg/ Sodium (Chloride) 250 mls @ 250 mls/hr IV DAILY [facility] Stop: 02/09/21 09:59 Last Infusion: 02/08/21 09:18 Dose: Infused Documented by: Cefepime HCl 2 gm/ Sodium (Chloride) 100 mls @ 200 mls/hr IV BID [facility] Last Infusion: 02/08/21 08:45 Dose: Infused Documented by: Lidocaine (Lidocaine Patch 5%) 1 patch TOP DAILY PRN PRN Reason: PAIN Last Admin: 02/08/21 08:01 Dose: 1 patch Documented by: Lorazepam (Lorazepam 0.5 Mg Tablet) 0.5 mg PO Q6H PRN PRN Reason: Anxiety Last Admin: 02/07/21 19:53 Dose: 0.5 mg Documented by: Multivitamins/Minerals (Multivitamin W/Minerals Tablet) 1 tab PO DAILYWM [facility] Last Admin: 02/08/21 09:18 Dose: 1 tab Documented by: Ondansetron HCl (Ondansetron Odt 4 Mg Tablet) 4 mg TL Q6HR PRN PRN Reason: Nausea / Vomiting Last Admin: 01/30/21 22:04 Dose: 4 mg Documented by: Ondansetron HCl (Ondansetron 4 Mg/2 Ml Vial) 4 mg IVP Q6HR PRN PRN Reason: Nausea / Vomiting Oxycodone HCl (Oxycodone 5 Mg Tablet) 5 mg PO Q4HR PRN PRN Reason: Pain 5 to 7 Last Admin: 02/08/21 08:04 Dose: 5 mg Documented by: Oxymetazoline HCl (Oxymetazoline Hcl 100 Sprays Bottle) 2 sprays CANDIDA BID PRN PRN Reason: Nasal Congestion Last Admin: 02/08/21 08:03 Dose: 2 sprays Documented by: Polyethylene Glycol (Polyethylene Glycol 3350 17 Gm Packet) 17 gm PO DAILY [facility] Last Admin: 02/08/21 07:58 Dose: Not Given Documented by: Prochlorperazine Edisylate (Prochlorperazine 10 Mg/2 Ml Vial) 10 mg IVP Q6HR PRN PRN Reason: Nausea / Vomiting Senna (Senna 8.6 Mg Tablet) 8.6 - 17.2 mg PO DAILY [facility] Last Admin: 02/08/21 07:58 Dose: Not Given Documented by: Sertraline HCl (Sertraline 50 Mg Tablet) 50 mg PO DAILY [facility] Last Admin: 02/08/21 07:57 Dose: 50 mg Documented by: Sodium Chloride (Sodium Chloride Flush 0.9% 10 Ml Syringe) 10 ml IVP PRN PRN PRN Reason: NEEDED PER PROVIDER ORDERS Last Admin: 02/07/21 10:43 Dose: 10 ml Documented by: Sodium Chloride (Sodium Chloride Flush 0.9% 10 Ml Syringe) 10 ml IVP 0100, 0900,1700 [facility] Last Admin: 02/08/21 07:58 Dose: 10 ml Documented by: Throat Lozenges (Benzocaine/Menthol Lozenge) 1 lozenge MM Q2HR PRN PRN Reason: Throat pain Last Admin: 01/30/21 04:54 Dose: 1 lozenge Documented by: Trazodone HCl (Trazodone 50 Mg Tablet) 50 mg PO QPM [facility] Last Admin: 02/07/21 20:58 Dose: 50 mg Documented by: No Known Home Medications 01/29/21 Objective - Vital Signs/Intake & Output Reviewed Vital Signs: Yes Vital Signs: Vital Signs x48h Temp Pulse Resp BP Pulse Ox 02/08/21 05:00 36.6 C 57 L 22 106/62 92 02/08/21 04:59 90 L 02/08/21 04:58 30 L 86 L 02/08/21 01:00 36.6 C 54 L 22 121/80 93 Intake & Output: Intake & Output 02/05/21 02/06/21 02/07/21 02/08/21 23:59 23:59 23:59 23:59 Intake Total 660 1340 1810 400 Output Total 2275 1300 1525 500 Balance -1615 40 285 -100 - Objective General Appearance: positive: No acute distress, Alert Eyes Bilateral: positive: Normal inspection, Conjunctivae nml ENT: positive: ENT inspection nml, Other (HFNC in place) Neck: positive: Nml inspection Respiratory: positive: No respiratory distress, Rhonchi. negative: Wheezes, Rales Cardiovascular: positive: No murmur, Irregularly irregular. negative: Tachycardia, Systolic murmur Abdomen: positive: Non-tender, No distention. negative: Tenderness Skin: positive: Warm, Dry Extremities: positive: No pedal edema Neurologic/Psychiatric: negative: Disoriented to person, Disoriented to place - Lab Results Fish Bones: 02/08/21 05:33 02/08/21 05:33 Other Labs: Lab Results x24hrs 02/08/21 02/08/21 Range/Units 05:33 05:33 WBC 12.0 H (4.8-10.8) x10^3/uL RBC 3.25 L (4.70-6.10) 10^6/uL Hgb 10.7 L (14.0-18.0) g/dL Hct 31.6 L (42.0-52.0) % MCV 97.2 H (80.0-94.0) fL MCH 32.9 H (27.0-31.0) pg MCHC 33.9 (32.0-36.0) g/dL RDW 13.0 (12.0-15.0) % Plt Count 179 (130-450) 10^3/uL MPV 10.8 (7.4-11.4) fL Neut # (Auto) 11.0 H (1.5-6.6) 10^3/uL Lymph # (Auto) 0.5 L (1.5-3.5) 10^3/uL [place] # (Auto) 0.2 (0.0-1.0) 10^3/uL Eos # (Auto) 0.0 (0.0-0.7) 10^3/uL Baso # (Auto) 0.0 (0.0-0.1) 10^3/uL Absolute Nucleated RBC 0.00 x10^3/uL Nucleated RBC % 0.0 /100WBC Sodium 137 (135-145) mmol/L Potassium 4.6 (3.5-5.0) mmol/L Chloride 99 L (101-111) mmol/L Carbon Dioxide 29 (21-32) mmol/L Anion Gap 9.0 (6-13) BUN 36 H (6-20) mg/dL Creatinine 0.8 (0.6-1.2) mg/dL Estimated GFR (MDRD) 93 (>89) Glucose 85 (70-100) mg/dL Calcium 8.4 L (8.5-10.3) mg/dL ABX Reporting Has patient been on IV antibiotics over the past 48 hours?: Yes Assessment/Plan - Problem List (1) Acute respiratory failure with hypoxia Impression: This is secondary to COVID-19 pneumonia and possibly a component of bacterial pneumonia as well. He has completed 5 days remdesivir and 10 days of Decadron. He was just started on cefepime and azithromycin for suspected hospital-acquired pneumonia given his white count was elevated and x-ray showed new infiltrates. His oxygen requirements are slightly improved today but he continues to require high flow nasal cannula. We will continue IV antibiotics for a total of 7 days. We have discontinued all steroids given it has been 10 days. Continue supplemental oxygen and we will wean with a goal saturation greater than 92%. (2) Pneumonia due to COVID-19 virus Impression: This is the cause of his acute respiratory failure with hypoxia. Continue contact precautions. Plan as mentioned above. (3) HCAP (healthcare-associated pneumonia) Impression: There is concern for HCAP given x-ray showed new infiltrates and his white count has increased. He was started empirically on cefepime and azithromycin for coverage. He is not on vancomycin due to allergies and he is low risk for multidrug-resistant organisms and he has no history of structural lung disease. We will treat him for a total of 7 days. (4) Bradycardia Impression: He has been bradycardic at times with heart rates in the 30s. He is asymptomatic and these have only occurred when he is asleep. We have continued to hold AV mayra blocking agents. I TSH was checked today and so the normal limits. Echocardiogram was unremarkable. We will continue to monitor at this time. (5) Atrial fibrillation Impression: He is rate controlled without the use of AV mayra blocking agents. He has had episodes of bradycardia although he is asymptomatic when these occur. We have continued him on Eliquis for anticoagulation.
[2021-02-08] MEDS: SERTRALINE 50 MG TABLET PO SCH (07:57)
[2021-02-08] MEDS: DOCUSATE SODIUM 250 MG CAPSULE PO SCH (07:57)
[2021-02-08] MEDS: TAMSULOSIN 0.4 MG CAPSULE PO SCH (07:57)
[2021-02-08] MEDS: APIXABAN 5 MG TABLET PO SCH ×2 (07:57→21:08)
[2021-02-08] MEDS: SODIUM CHLORIDE FLUSH 0.9% 10 ML SYRINGE IVP SCH ×2 (07:58→17:34)
[2021-02-08] MEDS: polyethylene glycoL 3350 17 GM PACKET PO SCH (07:58)
[2021-02-08] MEDS: SENNA 8.6 MG TABLET PO SCH (07:58)
[2021-02-08] MEDS: CEFEPIME 2 GM in SODIUM CHLORIDE 0.9% MINIBAG 100 ML IV SCH ×2 (08:01→21:08)
[2021-02-08] MEDS: LIDOCAINE PATCH 5% TOP PRN (08:01)
[2021-02-08] MEDS: OXYMETAZOLINE HCL 100 SPRAYS BOTTLE NAS PRN (08:03)
[2021-02-08] MEDS: oxyCODONE 5 MG TABLET PO PRN ×2 (08:04→21:08)
[2021-02-08] MEDS: AZITHROMYCIN INJ 500 MG in SODIUM CHLORIDE 0.9% 250 ML IV SCH (08:06)
[2021-02-08] MEDS ORDERED: dexAMETHasone 4 MG TABLET PO SCH (09:00)
[2021-02-08] MEDS: CHOLECALCIFEROL 25 MCG TABLET PO SCH (09:18)
[2021-02-08] MEDS: MULTIVITAMIN W/MINERALS TABLET PO SCH (09:18)
[2021-02-08] MEDS: ACETAMINOPHEN 325 MG TABLET PO PRN (09:24)
[2021-02-08] MEDS: LORazepam 0.5 MG TABLET PO PRN (17:35)
[2021-02-08] MEDS: traZODone 50 MG TABLET PO SCH (21:08)
[2021-02-09 05:28] LABS: BASOPHILS % (AUTO) 0.1 %; EOSINOPHILS % (AUTO) 0.1 %; HCT - HEMATOCRIT 32.5 % (42.0-52.0); HGB - HEMOGLOBIN 10.8 g/dL (14.0-18.0); LYMPHOCYTES # (AUTO) 0.4 10^3/uL (1.5-3.5); MEAN CORPUSCULAR HEMOGLOBIN 32.4 pg (27.0-31.0); MEAN CORPUSCULAR HGB CONC 33.2 g/dL (32.0-36.0); MEAN CORPUSCULAR VOLUME 97.6 fL (80.0-94.0); MEAN PLATELET VOLUME 11.1 fL (7.4-11.4); MONOCYTES # (AUTO) 0.2 10^3/uL (0.0-1.0); MONOCYTES % (AUTO) 1.5 %; NEUTROPHILS # (AUTO) 11.7 10^3/uL (1.5-6.6); NEUTROPHILS % (AUTO) 93.6 %; PLT - PLATELET COUNT 199 10^3/uL (130-450); RED BLOOD COUNT 3.33 10^6/uL (4.70-6.10); RED CELL DISTRIBUTION WIDTH 13.2 % (12.0-15.0); WHITE BLOOD COUNT 12.5 x10^3/uL (4.8-10.8)
[2021-02-09 05:33] LABS: CALCIUM 8.2 mg/dL (8.5-10.3); CREATININE 0.7 mg/dL (0.6-1.2); POTASSIUM 4.3 mmol/L (3.5-5.0)
[2021-02-09] MEDS: SODIUM CHLORIDE FLUSH 0.9% 10 ML SYRINGE IVP SCH ×4 (05:39→20:40)
[2021-02-09] MEDS: LORazepam 0.5 MG TABLET PO PRN (07:04)
[2021-02-09] MEDS: ALBUTEROL 1 PUFF INH PRN (07:17)
--- NOTE | 2021-02-09 07:26 | PROVIDER PROGRESS NOTE ---
Subjective - Prog Note Date Prog Note Date: 02/09/21 - Subjective Pt reports feeling: Worse Subjective: He feels worse this morning compared to yesterday. Still feels short of breath and complains of tailbone pain. He is tired of feeling so short of breath and uncomfortable. He confirms that he does not want CPR but is agreeable to BiPAP and mechanical ventilation. Current Medications - Current Medications Current Medications: Active Medications Acetaminophen (Acetaminophen 325 Mg Tablet) 650 mg PO Q4HR PRN PRN Reason: Pain 1 to 4 Last Admin: 02/09/21 08:28 Dose: 650 mg Documented by: Albuterol (Albuterol 1 Puff) 2 puffs INH Q4HR PRN PRN Reason: Wheezing Last Admin: 02/09/21 07:17 Dose: 2 puffs Documented by: Apixaban (Apixaban 5 Mg Tablet) 5 mg PO BID [facility] Last Admin: 02/09/21 08:29 Dose: 5 mg Documented by: Cholecalciferol (Cholecalciferol 25 Mcg Tablet) 50 mcg PO DAILY [facility] Last Admin: 02/09/21 09:37 Dose: 50 mcg Documented by: Docusate Sodium (Docusate Sodium 250 Mg Capsule) 250 - 500 mg PO DAILY [facility] Last Admin: 02/09/21 08:28 Dose: 250 mg Documented by: Cefepime HCl 2 gm/ Sodium (Chloride) 100 mls @ 200 mls/hr IV BID [facility] Last Infusion: 02/09/21 09:00 Dose: Infused Documented by: Lidocaine (Lidocaine Patch 5%) 1 patch TOP DAILY PRN PRN Reason: PAIN Last Admin: 02/09/21 08:27 Dose: 1 patch Documented by: Lorazepam (Lorazepam 0.5 Mg Tablet) 0.5 mg PO Q6H PRN PRN Reason: Anxiety Last Admin: 02/09/21 07:04 Dose: 0.5 mg Documented by: Morphine Sulfate (Morphine 2 Mg/Ml Carpuject) 2 mg IVP Q2HR PRN PRN Reason: PAIN Last Admin: 02/09/21 10:29 Dose: 2 mg Documented by: Multivitamins/Minerals (Multivitamin W/Minerals Tablet) 1 tab PO DAILYWM [facility] Last Admin: 02/09/21 08:29 Dose: 1 tab Documented by: Ondansetron HCl (Ondansetron Odt 4 Mg Tablet) 4 mg TL Q6HR PRN PRN Reason: Nausea / Vomiting Last Admin: 01/30/21 22:04 Dose: 4 mg Documented by: Ondansetron HCl (Ondansetron 4 Mg/2 Ml Vial) 4 mg IVP Q6HR PRN PRN Reason: Nausea / Vomiting Oxycodone HCl (Oxycodone 5 Mg Tablet) 5 mg PO Q4HR PRN PRN Reason: Pain 5 to 7 Last Admin: 02/09/21 09:39 Dose: 5 mg Documented by: Oxymetazoline HCl (Oxymetazoline Hcl 100 Sprays Bottle) 2 sprays CANDIDA BID PRN PRN Reason: Nasal Congestion Last Admin: 02/08/21 08:03 Dose: 2 sprays Documented by: Polyethylene Glycol (Polyethylene Glycol 3350 17 Gm Packet) 17 gm PO DAILY [facility] Last Admin: 02/09/21 08:29 Dose: Not Given Documented by: Prochlorperazine Edisylate (Prochlorperazine 10 Mg/2 Ml Vial) 10 mg IVP Q6HR PRN PRN Reason: Nausea / Vomiting Senna (Senna 8.6 Mg Tablet) 8.6 - 17.2 mg PO DAILY [facility] Last Admin: 02/09/21 08:29 Dose: Not Given Documented by: Sertraline HCl (Sertraline 50 Mg Tablet) 50 mg PO DAILY [facility] Last Admin: 02/09/21 08:29 Dose: 50 mg Documented by: Sodium Chloride (Sodium Chloride Flush 0.9% 10 Ml Syringe) 10 ml IVP PRN PRN PRN Reason: NEEDED PER PROVIDER ORDERS Last Admin: 02/07/21 10:43 Dose: 10 ml Documented by: Sodium Chloride (Sodium Chloride Flush 0.9% 10 Ml Syringe) 10 ml IVP 0100,0900,1700 [facility] Last Admin: 02/09/21 08:30 Dose: 10 ml Documented by: Throat Lozenges (Benzocaine/Menthol Lozenge) 1 lozenge MM Q2HR PRN PRN Reason: Throat pain Last Admin: 01/30/21 04:54 Dose: 1 lozenge Documented by: Trazodone HCl (Trazodone 50 Mg Tablet) 50 mg PO QPM [facility] Last Admin: 02/08/21 21:08 Dose: 50 mg Documented by: No Known Home Medications 01/29/21 Objective - Vital Signs/Intake & Output Reviewed Vital Signs: Yes Vital Signs: Vital Signs x48h Temp Pulse Pulse Resp BP BP Pulse Ox 02/09/21 07:17 70 14 02/09/21 04:40 36.4 C L 64 20 105/70 86 L 02/09/21 00:15 36.4 C L 67 20 108/73 95 Intake & Output: Intake & Output 02/06/21 02/07/21 02/08/21 02/09/21 23:59 23:59 23:59 23:59 Intake Total 1340 1810 1930 300 Output Total 1300 1525 1100 400 Balance 40 285 830 -100 - Objective General Appearance: positive: Alert, Mild distress Eyes Bilateral: positive: Conjunctivae nml ENT: positive: ENT inspection nml Neck: positive: Nml inspection Respiratory: positive: No respiratory distress, Rhonchi, Other (He is not tachypnic.). negative: Wheezes, Rales Cardiovascular: positive: Irregularly irregular. negative: Tachycardia, Systolic murmur Abdomen: positive: Non-tender, No distention. negative: Tenderness Skin: positive: Warm, Dry Extremities: positive: Pedal edema (+1 edema in right lower extremity.) Neurologic/Psychiatric: negative: Disoriented to person, Disoriented to place - Lab Results Fish Bones: 02/09/21 04:42 02/09/21 04:42 Other Labs: Lab Results x24hrs 02/09/21 02/09/21 02/08/21 Range/Units 04:42 04:42 08:16 WBC 12.5 H (4.8-10.8) x10^3/uL RBC 3.33 L (4.70-6.10) 10^6/uL Hgb 10.8 L (14.0-18.0) g/dL Hct 32.5 L (42.0-52.0) % MCV 97.6 H (80.0-94.0) fL MCH 32.4 H (27.0-31.0) pg MCHC 33.2 (32.0-36.0) g/dL RDW 13.2 (12.0-15.0) % Plt Count 199 (130-450) 10^3/uL MPV 11.1 (7.4-11.4) fL Neut # (Auto) 11.7 H (1.5-6.6) 10^3/uL Lymph # (Auto) 0.4 L (1.5-3.5) 10^3/uL [place] # (Auto) 0.2 (0.0-1.0) 10^3/uL Eos # (Auto) 0.0 (0.0-0.7) 10^3/uL Baso # (Auto) 0.0 (0.0-0.1) 10^3/uL Absolute Nucleated RBC 0.00 x10^3/uL Nucleated RBC % 0.0 /100WBC Sodium 133 L (135-145) mmol/L Potassium 4.3 (3.5-5.0) mmol/L Chloride 97 L (101-111) mmol/L Carbon Dioxide 27 (21-32) mmol/L Anion Gap 9.0 (6-13) BUN 37 H (6-20) mg/dL Creatinine 0.7 (0.6-1.2) mg/dL Estimated GFR (MDRD) 109 (>89) Glucose 85 (70-100) mg/dL Calcium 8.2 L (8.5-10.3) mg/dL Magnesium (1.7-2.8) mg/dL TSH 0.46 (0.34-5.60) uIU/mL 02/08/21 Range/Units 08:16 WBC (4.8-10.8) x10^3/uL RBC (4.70-6.10) 10^6/uL Hgb (14.0-18.0) g/dL Hct (42.0-52.0) % MCV (80.0-94.0) fL MCH (27.0-31.0) pg MCHC (32.0-36.0) g/dL RDW (12.0-15.0) % Plt Count (130-450) 10^3/uL MPV (7.4-11.4) fL Neut # (Auto) (1.5-6.6) 10^3/uL Lymph # (Auto) (1.5-3.5) 10^3/uL [place] # (Auto) (0.0-1.0) 10^3/uL Eos # (Auto) (0.0-0.7) 10^3/uL Baso # (Auto) (0.0-0.1) 10^3/uL Absolute Nucleated RBC x10^3/uL Nucleated RBC % /100WBC Sodium (135-145) mmol/L Potassium (3.5-5.0) mmol/L Chloride (101-111) mmol/L Carbon Dioxide (21-32) mmol/L Anion Gap (6-13) BUN (6-20) mg/dL Creatinine (0.6-1.2) mg/dL Estimated GFR (MDRD) (>89) Glucose (70-100) mg/dL Calcium (8.5-10.3) mg/dL Magnesium 2.4 (1.7-2.8) mg/dL TSH (0.34-5.60) uIU/mL ABX Reporting Has patient been on IV antibiotics over the past 48 hours?: Yes Assessment/Plan - Problem List (1) Acute respiratory failure with hypoxia Impression: He unfortunately had an increase in his oxygen requirements this morning and is now requiring 95% FiO2 at 40 L/min via high flow nasal cannula. I ordered a repeat chest x-rays morning which shows worsening infiltrates. He is ready completed 5 days of remdesivir and 10 days of Decadron. He was started on cefepime and azithromycin for presumed HCAP. I also ordered an ABG today which confirmed his significant hypoxia. I spoke with the patient at length and he confirms he is a DNR but is agreeable to BiPAP and mechanical ventilation if nec essary. I also spoke with the patient's family to update him on his clinical condition. All of their questions were answered. At this point in time, we will continue IV antibiotics and start him on Zyvox for MRSA coverage as well given his increasing oxygen requirements. We will transfer him to the ICU for closer observation. If his oxygen requirements continued to increase then we will try BiPAP before considering mechanical ventilation. I will also reach out to nearby facilities to see if there is a role for transfer at this point in time or if they have any further recommendations for us. I have also asked the patient's nurse to check if his can come visit given his critical illness. (2) Pneumonia due to COVID-19 virus Impression: This is the cause of his acute hypoxic respiratory failure. He has already completed 5 days of remdesivir and 10 days of Decadron. We are now treating him for suspected HCAP. We will reach out to a tertiary facility to discuss the potential need for transfer and further recommendations. (3) HCAP (healthcare-associated pneumonia) Impression: We are concerned for potential HCAP given his worsening infiltrates and increasing white count. He was started on cefepime and azithromycin with today being day 3. We will add Zyvox today to cover for MRSA. Repeat chest x-ray today showed worsening infiltrates. Continue antibiotics and management as mentioned above. (4) Edema of right lower extremity Impression: This is new today. Concerns for potential thrombus versus heart failure. We will trial a dose of Lasix given his increasing hypoxia and check a BNP. We will also order duplex. Continue Eliquis for the atrial fibrillation. (5) Bradycardia Impression: He is bradycardic at night but his heart rate improves throughout the day and he is asymptomatic. TSH within normal limits. We will continue to monitor. (6) Atrial fibrillation Impression: He is rate controlled throughout the day and bradycardic at night. He remains on Eliquis we are holding AV mayra blocking agents due to the bradycardia.
[2021-02-09] MEDS: AZITHROMYCIN INJ 500 MG in SODIUM CHLORIDE 0.9% 250 ML IV SCH (08:23)
[2021-02-09] MEDS: CEFEPIME 2 GM in SODIUM CHLORIDE 0.9% MINIBAG 100 ML IV SCH ×2 (08:23→20:42)
[2021-02-09] MEDS: LIDOCAINE PATCH 5% TOP PRN (08:27)
[2021-02-09] MEDS: ACETAMINOPHEN 325 MG TABLET PO PRN (08:28)
[2021-02-09] MEDS: DOCUSATE SODIUM 250 MG CAPSULE PO SCH (08:28)
[2021-02-09] MEDS: polyethylene glycoL 3350 17 GM PACKET PO SCH (08:29)
[2021-02-09] MEDS: SERTRALINE 50 MG TABLET PO SCH (08:29)
[2021-02-09] MEDS: SENNA 8.6 MG TABLET PO SCH (08:29)
[2021-02-09] MEDS: APIXABAN 5 MG TABLET PO SCH ×2 (08:29→20:40)
[2021-02-09] MEDS: MULTIVITAMIN W/MINERALS TABLET PO SCH (08:29)
[2021-02-09] MEDS ORDERED: FUROSEMIDE 40 MG/4 ML VIAL IVP STA (08:53)
[2021-02-09] MEDS: CHOLECALCIFEROL 25 MCG TABLET PO SCH (09:37)
[2021-02-09] MEDS: oxyCODONE 5 MG TABLET PO PRN (09:39)
[2021-02-09] MEDS: MORPHINE 2 MG/ML CARPUJECT IVP PRN ×2 (10:29→20:40)
[2021-02-09 10:41] LABS: ABG BASE EXCESS 3.8 mmol/L (-2.0-3.0); ABG HCO3 27.1 mmol/L (22.0-26.0); ABG OXYGEN SATURATION 95 % (94-98); ABG PCO2 36 mmHg (34-45); ABG PO2 75 mmHg (80-100); ABG TCO2 28.2 MMOL/L (21.0-29.0); ALLEN TEST POSITIVE
--- NOTE | 2021-02-09 10:43 | XRAY Report ---
PROCEDURE: Chest 1 View X-Ray INDICATIONS: Worsening hypoxia. Covid. TECHNIQUE: One view of the chest was acquired. COMPARISON: Chest radiograph dated 02/03/2021 FINDINGS: Surgical changes and devices: None. Lungs and pleura: No pleural effusions or pneumothorax. Redemonstrated multifocal bilateral upper and lower lobe patchy consolidative and groundglass opacities. There appears to be slight increased c onsolidation in the retrocardiac left lower lobe and in the right lung base since 02/03/2021. Mediastinum: Mediastinal contours appear normal. Heart size is normal. Bones and chest wall: No suspicious bony lesions. Overlying soft tissues appear unremarkable. IMPRESSION: Slight interval worsening in bibasilar consolidative opacities since 02/03/2021. Reviewed by: Edenilson Berger MD on 02/09/2021 10:42 AM PDT Approved by: Edenilson Berger MD on 02/09/2021 10:42 AM PDT Station ID: [id number]
--- NOTE | 2021-02-09 12:18 | Ultrasound Report ---
PROCEDURE: Duplex Ext Veins Bilateral INDICATIONS: Bilateral lower extremity edema. TECHNIQUE: Real-time imaging, as well as color and pulse Doppler interrogation, were performed of the deep veins of both legs from the inguinal ligament to the popliteal fossa. COMPARISON: None FINDINGS: The deep veins of the right and left lower extremity are normally compressible, and free o f intraluminal thrombus. Color and pulse Doppler demonstrate normal phasic intravascular flow in the deep veins of the right and left lower extremities. There is normal augmentation response to distal compression maneuver. IMPRESSION: No evidence of deep vein thrombosis involving either the right or left lower extremities. Reviewed by: Keely Moe MD, PhD on 02/09/2021 12:17 PM PDT Approved by: Keely Moe MD, PhD on 02/09/2021 12:17 PM PDT Station ID: [id number]
[2021-02-09] MEDS: LINEZOLID 600 MG/300 ML 600 MG/300 ML BAG IV SCH (16:08)
[2021-02-09] MEDS: traZODone 50 MG TABLET PO SCH (20:40)
[2021-02-10] MEDS: MORPHINE 2 MG/ML CARPUJECT IVP PRN ×5 (01:25→22:51)
[2021-02-10] MEDS: SODIUM CHLORIDE FLUSH 0.9% 10 ML SYRINGE IVP SCH ×5 (01:25→22:51)
[2021-02-10] MEDS: LINEZOLID 600 MG/300 ML 600 MG/300 ML BAG IV SCH ×2 (03:21→14:40)
[2021-02-10] MEDS: SODIUM CHLORIDE FLUSH 0.9% 10 ML SYRINGE IVP PRN ×3 (03:32→20:18)
[2021-02-10 05:13] LABS: BASOPHILS % (AUTO) 0.1 %; EOSINOPHILS # (AUTO) 0.1 10^3/uL (0.0-0.7); EOSINOPHILS % (AUTO) 0.5 %; HGB - HEMOGLOBIN 10.1 g/dL (14.0-18.0); LYMPHOCYTES # (AUTO) 0.3 10^3/uL (1.5-3.5); LYMPHOCYTES % (AUTO) 2.1 %; MEAN CORPUSCULAR HEMOGLOBIN 32.9 pg (27.0-31.0); MEAN CORPUSCULAR HGB CONC 33.7 g/dL (32.0-36.0); MEAN CORPUSCULAR VOLUME 97.7 fL (80.0-94.0); MEAN PLATELET VOLUME 10.6 fL (7.4-11.4); MONOCYTES # (AUTO) 0.2 10^3/uL (0.0-1.0); MONOCYTES % (AUTO) 1.2 %; NEUTROPHILS # (AUTO) 12.4 10^3/uL (1.5-6.6); NEUTROPHILS % (AUTO) 94.6 %; PLT - PLATELET COUNT 196 10^3/uL (130-450); RED BLOOD COUNT 3.07 10^6/uL (4.70-6.10); RED CELL DISTRIBUTION WIDTH 13.3 % (12.0-15.0); WHITE BLOOD COUNT 13.1 x10^3/uL (4.8-10.8)
[2021-02-10 05:37] LABS: CALCIUM 7.7 mg/dL (8.5-10.3); CREATININE 0.7 mg/dL (0.6-1.2); CRP - C-REACTIVE PROTEIN 20.3 mg/dL (0-1.0)
[2021-02-10] MEDS: LORazepam 0.5 MG TABLET PO PRN ×2 (05:59→12:35)
--- NOTE | 2021-02-10 07:19 | PROVIDER PROGRESS NOTE ---
Subjective - Prog Note Date Prog Note Date: 02/10/21 - Subjective Subjective: He feels like his breathing may be slightly improved. He is sleepy right now but just received Ativan and morphine. Current Medications - Current Medications Current Medications: Active Medications Acetaminophen (Acetaminophen 325 Mg Tablet) 650 mg PO Q4HR PRN PRN Reason: Pain 1 to 4 Last Admin: 02/09/21 08:28 Dose: 650 mg Documented by: Albuterol (Albuterol 1 Puff) 2 puffs INH Q4HR PRN PRN Reason: Wheezing Last Admin: 02/10/21 12:04 Dose: 2 puffs Documented by: Apixaban (Apixaban 5 Mg Tablet) 5 mg PO BID [facility] Last Admin: 02/10/21 08:59 Dose: 5 mg Documented by: Cholecalciferol (Cholecalciferol 25 Mcg Tablet) 50 mcg PO DAILY [facility] Last Admin: 02/10/21 08:59 Dose: 50 mcg Documented by: Dexamethasone (Dexamethasone 4 Mg/Ml Vial) 6 mg IVP DAILY [facility] Last Admin: 02/10/21 09:07 Dose: 6 mg Documented by: Docusate Sodium (Docusate Sodium 250 Mg Capsule) 250 - 500 mg PO DAILY [facility] Last Admin: 02/10/21 09:06 Dose: 250 mg Documented by: Cefepime HCl 2 gm/ Sodium (Chloride) 100 mls @ 200 mls/hr IV BID [facility] Last Infusion: 02/10/21 09:35 Dose: Infused Documented by: Linezolid (Zyvox 600 Mg/300 Ml) 600 mg in 300 mls @ 300 mls/hr IV Q12H [facility] Last Infusion: 02/10/21 04:30 Dose: Infused Documented by: Lidocaine (Lidocaine Patch 5%) 1 patch TOP DAILY PRN PRN Reason: PAIN Last Admin: 02/09/21 08:27 Dose: 1 patch Documented by: Lorazepam (Lorazepam 0.5 Mg Tablet) 0.5 mg PO Q6H PRN PRN Reason: Anxiety Last Admin: 02/10/21 12:35 Dose: 0.5 mg Documented by: Morphine Sulfate (Morphine 2 Mg/Ml Carpuject) 2 mg IVP Q2HR PRN PRN Reason: PAIN Last Admin: 02/10/21 12:40 Dose: 2 mg Documented by: Multivitamins/Minerals (Multivitamin W/Minerals Tablet) 1 tab PO DAILYWM [facility] Last Admin: 02/10/21 08:59 Dose: 1 tab Documented by: Ondansetron HCl (Ondansetron Odt 4 Mg Tablet) 4 mg TL Q6HR PRN PRN Reason: Nausea / Vomiting Last Admin: 01/30/21 22:04 Dose: 4 mg Documented by: Ondansetron HCl (Ondansetron 4 Mg/2 Ml Vial) 4 mg IVP Q6HR PRN PRN Reason: Nausea / Vomiting Oxycodone HCl (Oxycodone 5 Mg Tablet) 5 mg PO Q4HR PRN PRN Reason: Pain 5 to 7 Last Admin: 02/09/21 09:39 Dose: 5 mg Documented by: Oxymetazoline HCl (Oxymetazoline Hcl 100 Sprays Bottle) 2 sprays CANDIDA BID PRN PRN Reason: Nasal Congestion Last Admin: 02/08/21 08:03 Dose: 2 sprays Documented by: Polyethylene Glycol (Polyethylene Glycol 3350 17 Gm Packet) 17 gm PO DAILY [facility] Last Admin: 02/10/21 09:10 Dose: Not Given Documented by: Prochlorperazine Edisylate (Prochlorperazine 10 Mg/2 Ml Vial) 10 mg IVP Q6HR PRN PRN Reason: Nausea / Vomiting Senna (Senna 8.6 Mg Tablet) 8.6 - 17.2 mg PO DAILY [facility] Last Admin: 02/10/21 09:06 Dose: 8.6 mg Documented by: Sodium Chloride (Sodium Chloride Flush 0.9% 10 Ml Syringe) 10 ml IVP PRN PRN PRN Reason: NEEDED PER PROVIDER ORDERS Last Admin: 02/10/21 03:32 Dose: 10 ml Documented by: Sodium Chloride (Sodium Chloride Flush 0.9% 10 Ml Syringe) 10 ml IVP 0100,0900,1700 [facility] Last Admin: 02/10/21 09:07 Dose: 10 ml Documented by: Throat Lozenges (Benzocaine/Menthol Lozenge) 1 lozenge MM Q2HR PRN PRN Reason: Throat pain Last Admin: 01/30/21 04:54 Dose: 1 lozenge Documented by: Trazodone HCl (Trazodone 50 Mg Tablet) 50 mg PO QPM [facility] Last Admin: 02/09/21 20:40 Dose: 50 mg Documented by: No Known Home Medications 01/29/21 Objective - Vital Signs/Intake & Output Reviewed Vital Signs: Yes Vital Signs: Vital Signs Temp Pulse Resp BP Pulse Ox 02/10/21 07:00 60 19 119/74 94 02/10/21 06:50 18 94 02/10/21 06:00 73 17 109/64 97 02/10/21 05:00 61 22 88/60 L 93 02/10/21 04:00 62 21 90/59 L 95 02/10/21 03:29 37.5 C Intake & Output: Intake & Output 02/07/21 02/08/21 02/09/21 02/10/21 23:59 23:59 23:59 23:59 Intake Total 1810 1930 1560 550 Output Total 1525 1100 1410 340 Balance 285 830 150 210 - Objective General Appearance: positive: No acute distress Eyes Bilateral: positive: Conjunctivae nml ENT: positive: ENT inspection nml, Other (Nasal cannula in place.) - Lab Results Fish Bones: 02/10/21 04:38 02/10/21 04:38 Other Labs: Lab Results x24hrs 02/10/21 02/10/21 02/09/21 Range/Units 04:38 04:38 15:50 WBC 13.1 H (4.8-10.8) x10^3/uL RBC 3.07 L (4.70-6.10) 10^6/uL Hgb 10.1 L (14.0-18.0) g/dL Hct 30.0 L (42.0-52.0) % MCV 97.7 H (80.0-94.0) fL MCH 32.9 H (27.0-31.0) pg MCHC 33.7 (32.0-36.0) g/dL RDW 13.3 (12.0-15.0) % Plt Count 196 (130-450) 10^3/uL MPV 10.6 (7.4-11.4) fL Neut # (Auto) 12.4 H (1.5-6.6) 10^3/uL Lymph # (Auto) 0.3 L (1.5-3.5) 10^3/uL [place] # (Auto) 0.2 (0.0-1.0) 10^3/uL Eos # (Auto) 0.1 (0.0-0.7) 10^3/uL Baso # (Auto) 0.0 (0.0-0.1) 10^3/uL Absolute Nucleated RBC 0.00 x10^3/uL Nucleated RBC % 0.0 /100WBC Bld Gas Analysis Time Sample Site ABG pH (7.35-7.45) ABG pCO2 (34-45) mmHg ABG pO2 (80-100) mmHg ABG HCO3 (22.0-26.0) mmol/L ABG Total CO2 (21.0-29.0) MMOL/L ABG O2 Saturation (94-98) % ABG Base Excess (-2.0-3.0) mmol/L Choco Test O2 Delivery Device O2 Liters/Min LPM FiO2 Sodium 132 L (135-145) mmol/L Potassium 4.0 (3.5-5.0) mmol/L Chloride 95 L (101-111) mmol/L Carbon Dioxide 27 (21-32) mmol/L Anion Gap 10.0 (6-13) BUN 33 H (6-20) mg/dL Creatinine 0.7 (0.6-1.2) mg/dL Estimated GFR (MDRD) 109 (>89) Glucose 105 H (70-100) mg/dL Calcium 7.7 L (8.5-10.3) mg/dL C-Reactive Protein 20.3 H 15.5 H (0-1.0) mg/dL B-Natriuretic Peptide (5-100) pg/mL Nasal Screen MRSA (PCR) (NEGATIVE) 02/09/21 02/09/21 02/09/21 Range/Units 11:30 10:31 04:42 WBC (4.8-10.8) x10^3/uL RBC (4.70-6.10) 10^6/uL Hgb (14.0-18.0) g/dL Hct (42.0-52.0) % MCV (80.0-94.0) fL MCH (27.0-31.0) pg MCHC (32.0-36.0) g/dL RDW (12.0-15.0) % Plt Count (130-450) 10^3/uL MPV (7.4-11.4) fL Neut # (Auto) (1.5-6.6) 10^3/uL Lymph # (Auto) (1.5-3.5) 10^3/uL [place] # (Auto) (0.0-1.0) 10^3/uL Eos # (Auto) (0.0-0.7) 10^3/uL Baso # (Auto) (0.0-0.1) 10^3/uL Absolute Nucleated RBC x10^3/uL Nucleated RBC % /100WBC Bld Gas Analysis Time 1040 Sample Site RIGHT RADIAL ABG pH 7.50 H (7.35-7.45) ABG pCO2 36 (34-45) mmHg ABG pO2 75 L (80-100) mmHg ABG HCO3 27.1 H (22.0-26.0) mmol/L ABG Total CO2 28.2 (21.0-29.0) MMOL/L ABG O2 Saturation 95 (94-98) % ABG Base Excess 3.8 H (-2.0-3.0) mmol/L Choco Test POSITIVE O2 Delivery Device NASAL CANNULA O2 Liters/Min 40.00 LPM FiO2 95.00 Sodium (135-145) mmol/L Potassium (3.5-5.0) mmol/L Chloride (101-111) mmol/L Carbon Dioxide (21-32) mmol/L Anion Gap (6-13) BUN (6-20) mg/dL Creatinine (0.6-1.2) mg/dL Estimated GFR (MDRD) (>89) Glucose (70-100) mg/dL Calcium (8.5-10.3) mg/dL C-Reactive Protein (0-1.0) mg/dL B-Natriuretic Peptide 314 H (5-100) pg/mL Nasal Screen MRSA (PCR) NEGATIVE (NEGATIVE) Assessment/Plan - Problem List (1) Acute respiratory failure with hypoxia Impression: His FiO2 requirements are slightly decreased compared to yesterday. He is now down to FiO2 of 80% at 4 L a minute via high flow nasal cannula. I did speak with the informatics pharmacist at [facility] yesterday discussed the potential need for transfer. They felt that transfer is reasonable if the patient was agreeable to it. They stated that the management would likely not change. The informatics pharmacist also recommended checking CRP as if it is elevated, there may be some benefit for a prolonged course of Decadron. A CRP was checked and was elevated continues to rise. It was previously trending down and so we will resume Decadron 6 mg IV today. We will keep him on Zyvox and cefepime for HCAP. Given the improvement in his oxygenation, the patient will remain here at our facility. The patient also preferred to avoid transfer unless absolutely necessary. (2) Pneumonia due to COVID-19 virus Impression: This is the cause of his respiratory failure. He had previously completed 5 days of remdesivir and 10 days of Decadron. Given his increasing CRP, we will resume Decadron today. (3) HCAP (healthcare-associated pneumonia) Impression: Concern is for HCAP as a component of his respiratory failure given his white count had been increasing. Today is day 4 of cefepime and day 2 of Zyvox. We will continue these for 7 days total. (4) Edema of right lower extremity Impression: Duplex was negative for DVT. We'll continue to monitor. (5) Bradycardia Impression: He is bradycardic at times overnight while asleep but otherwise heart rate is stable and he is asymptomatic. (6) Atrial fibrillation Impression: He remains rate controlled without any AV mayra blocking agents. We will continue Eliquis.
[2021-02-10] MEDS: APIXABAN 5 MG TABLET PO SCH ×2 (08:59→20:17)
[2021-02-10] MEDS: MULTIVITAMIN W/MINERALS TABLET PO SCH (08:59)
[2021-02-10] MEDS: CHOLECALCIFEROL 25 MCG TABLET PO SCH (08:59)
[2021-02-10] MEDS: CEFEPIME 2 GM in SODIUM CHLORIDE 0.9% MINIBAG 100 ML IV SCH ×2 (09:05→20:17)
[2021-02-10] MEDS: SENNA 8.6 MG TABLET PO SCH (09:06)
[2021-02-10] MEDS: DOCUSATE SODIUM 250 MG CAPSULE PO SCH (09:06)
[2021-02-10] MEDS: DEXAMETHASONE 4 MG/ML VIAL IVP SCH (09:07)
[2021-02-10] MEDS: polyethylene glycoL 3350 17 GM PACKET PO SCH (09:10)
[2021-02-10] MEDS: ALBUTEROL 1 PUFF INH PRN (12:04)
[2021-02-10] MEDS: LIDOCAINE PATCH 5% TOP PRN (19:17)
[2021-02-10] MEDS: traZODone 50 MG TABLET PO SCH (20:17)
[2021-02-11] MEDS: LINEZOLID 600 MG/300 ML 600 MG/300 ML BAG IV SCH ×2 (03:34→13:40)
[2021-02-11] MEDS: SODIUM CHLORIDE FLUSH 0.9% 10 ML SYRINGE IVP PRN ×4 (03:35→13:42)
[2021-02-11] MEDS: MORPHINE 2 MG/ML CARPUJECT IVP PRN ×8 (03:37→20:48)
[2021-02-11 05:10] LABS: BASOPHILS % (AUTO) 0.2 %; HCT - HEMATOCRIT 31.5 % (42.0-52.0); HGB - HEMOGLOBIN 10.4 g/dL (14.0-18.0); LYMPHOCYTES # (AUTO) 0.2 10^3/uL (1.5-3.5); LYMPHOCYTES % (AUTO) 1.2 %; MEAN CORPUSCULAR HEMOGLOBIN 32.7 pg (27.0-31.0); MEAN CORPUSCULAR VOLUME 99.1 fL (80.0-94.0); MEAN PLATELET VOLUME 10.3 fL (7.4-11.4); MONOCYTES # (AUTO) 0.3 10^3/uL (0.0-1.0); MONOCYTES % (AUTO) 2.6 %; NEUTROPHILS # (AUTO) 11.8 10^3/uL (1.5-6.6); NEUTROPHILS % (AUTO) 95.4 %; PLT - PLATELET COUNT 208 10^3/uL (130-450); RED BLOOD COUNT 3.18 10^6/uL (4.70-6.10); RED CELL DISTRIBUTION WIDTH 13.2 % (12.0-15.0); WHITE BLOOD COUNT 12.4 x10^3/uL (4.8-10.8)
[2021-02-11 05:36] LABS: CREATININE 0.7 mg/dL (0.6-1.2); CRP - C-REACTIVE PROTEIN 24.7 mg/dL (0-1.0); POTASSIUM 4.3 mmol/L (3.5-5.0)
[2021-02-11] MEDS: CEFEPIME 2 GM in SODIUM CHLORIDE 0.9% MINIBAG 100 ML IV SCH ×2 (09:00→20:43)
[2021-02-11] MEDS: MULTIVITAMIN W/MINERALS TABLET PO SCH (09:05)
[2021-02-11] MEDS: CHOLECALCIFEROL 25 MCG TABLET PO SCH (09:06)
[2021-02-11] MEDS: APIXABAN 5 MG TABLET PO SCH ×2 (09:06→20:48)
[2021-02-11] MEDS: DEXAMETHASONE 4 MG/ML VIAL IVP SCH (09:06)
[2021-02-11] MEDS: DOCUSATE SODIUM 250 MG CAPSULE PO SCH (09:07)
[2021-02-11] MEDS: SODIUM CHLORIDE FLUSH 0.9% 10 ML SYRINGE IVP SCH ×3 (09:07→22:44)
[2021-02-11] MEDS: SENNA 8.6 MG TABLET PO SCH (09:07)
[2021-02-11] MEDS: polyethylene glycoL 3350 17 GM PACKET PO SCH (09:08)
--- NOTE | 2021-02-11 11:01 | PROVIDER PROGRESS NOTE ---
Assessment/Plan - Problem List (1) Acute respiratory failure with hypoxia Assessment/Plan: Secondary to COVID-19 pneumonia and possibly HCAP. Patient is currently on high flow nasal cannula at an FiO2 of 80% and a rate of 40 L. His oxygen saturation fluctuates between 90 and 96%. He appears very weak. Currently on cefepime and Zyvox. Continue dexamethasone 6 mg IV daily. Completed remdesivir. If patient's respiratory status worsens we will put patient on the BiPAP. (2) COVID-19 Assessment/Plan: Patient is currently on high flow nasal cannula at an FiO2 of 80% and a rate of 40 L. His oxygen saturation fluctuates between 90 and 96%. He appears very weak. Continue dexamethasone 6 mg IV daily. Completed remdesivir. If patient's respiratory status worsens we will put patient on the BiPAP. (3) HCAP (healthcare-associated pneumonia) Assessment/Plan: Patient is currently on high flow nasal cannula at an FiO2 of 80% and a rate of 40 L. His oxygen saturation fluctuates between 90 and 96%. He appears very weak. Currently on cefepime and Zyvox. Continue dexamethasone 6 mg IV daily. If patient's respiratory status worsens we will put patient on the BiPAP. (4) Atrial fibrillation Assessment/Plan: On Eliquis 5 mg p.o. twice daily Patient's heart rate is usually normal during the day and slightly bradycardic at night. He is not on any rate controlling medication. 2D echo done 02/04/21 showed a preserved ejection fraction at 65 to 70% (5) Bradycardia Assessment/Plan: He is bradycardic at times overnight while asleep but otherwise heart rate is stable and he is asymptomatic. (6) Edema of right lower extremity Assessment/Plan: Lower extremity Dopplers done bilaterally were negative for any deep vein thrombosis. - Current Meds Current Meds: Current Medications Generic Name Dose Route Start Last Admin Trade Name Freq PRN Reason Stop Dose Admin Acetaminophen 650 mg 01/29/21 17:09 02/09/21 08:28 Acetaminophen 325 Mg Tablet PO 650 mg Q4HR PRN Administration Pain 1 to 4 Albuterol 2 puffs 01/30/21 08:37 02/10/21 12:04 Albuterol 1 Puff INH 2 puffs Q4HR PRN Administration Wheezing Apixaban 5 mg 02/04/21 21:00 02/11/21 09:06 Apixaban 5 Mg Tablet PO 5 mg BID [facility] Administration Cholecalciferol 50 mcg 02/08/21 09:00 02/11/21 09:06 Cholecalciferol 25 Mcg Tablet PO 50 mcg DAILY [facility] Administration Dexamethasone 6 mg 02/10/21 09:00 02/11/21 09:06 Dexamethasone 4 Mg/Ml Vial IVP 6 mg DAILY [facility] Administration Docusate Sodium 250 - 500 mg 02/03/21 09:00 02/11/21 09:07 Docusate Sodium 250 Mg Capsule PO 250 mg DAILY [facility] Administration Cefepime HCl 2 gm/ Sodium 100 mls @ 200 mls/hr 02/07/21 11:00 02/11/21 09:30 Chloride IV 02/14/21 10:59 Infused BID [facility] Infusion Linezolid 600 mg in 300 mls @ 300 mls/hr 02/09/21 15:00 02/11/21 04:54 Zyvox 600 Mg/300 Ml IV 02/15/21 14:59 Infused Q12H [facility] Infusion Lidocaine 1 patch 02/06/21 15:29 02/10/21 19:17 Lidocaine Patch 5% TOP 1 patch DAILY PRN Administration PAIN Morphine Sulfate 2 mg 02/09/21 10:12 02/11/21 09:15 Morphine 2 Mg/Ml Carpuject IVP 2 mg Q2HR PRN Administration PAIN Multivitamins/Minerals 1 tab 02/08/21 09:00 02/11/21 09:05 Multivitamin W/Minerals Tablet PO 1 tab DAILYWM [facility] Administration Ondansetron HCl 4 mg 01/29/21 17:09 01/30/21 22:04 Ondansetron Odt 4 Mg Tablet TL 4 mg Q6HR PRN Administration Nausea / Vomiting Oxycodone HCl 5 mg 01/29/21 17:09 02/09/21 09:39 Oxycodone 5 Mg Tablet PO 5 mg Q4HR PRN Administration Pain 5 to 7 Oxymetazoline HCl 2 sprays 02/07/21 21:10 02/08/21 08:03 Oxymetazoline Hcl 100 Sprays Bottle CANDIDA 2 sprays BID PRN Administration Nasal Congestion Polyethylene Glycol 17 gm 02/01/21 09:00 02/11/21 09:08 Polyethylene Glycol 3350 17 Gm Packet PO Not Given DAILY [facility] Senna 8.6 - 17.2 mg 02/03/21 09:00 02/11/21 09:07 Senna 8.6 Mg Tablet PO 8.6 mg DAILY [facility] Administration Sodium Chloride 10 ml 01/29/21 17:09 02/11/21 06:27 Sodium Chloride Flush 0.9% 10 Ml Syringe IVP 10 ml PRN PRN Administration NEEDED PER PROVIDER ORDERS Sodium Chloride 10 ml 01/30/21 01:00 02/11/21 09:07 Sodium Chloride Flush 0.9% 10 Ml Syringe IVP 10 ml 0100,0900,1700 [facility] Administration Throat Lozenges 1 lozenge 01/30/21 02:25 01/30/21 04:54 Benzocaine/Menthol Lozenge MM 1 lozenge Q2HR PRN Administration Throat pain Trazodone HCl 50 mg 02/02/21 21:00 02/10/21 20:17 Trazodone 50 Mg Tablet PO 50 mg QPM [facility] Administration - Lab Result Fish Bone Diagrams: 02/11/21 04:30 02/11/21 04:30 - Additional Planning My Orders: My Active Orders 02/11/21 10:33 LORazepam [Ativan] 0.5 mg PO Q6H PRN Subjective - Subjective Patient Reports: Other (Patient appears very weak and frail. He also appears dyspneic and has a dry cough. He had fallen asleep from his exhaustion w/o eating his lunch) Objective Vital Signs: Vital Signs - 24 hr 02/10/21 02/10/21 02/10/21 12:00 12:04 13:00 Temperature Heart Rate 72 Heart Rate [ 69 71 Monitoring electrodes] Respiratory 26 H 24 21 Rate Blood Pressure 109/75 89/55 L [Left Brachial artery] O2 Saturation 92 94 02/10/21 02/10/21 02/10/21 14:00 15:00 16:00 Temperature Heart Rate Heart Rate [ 57 L 55 L 58 L Monitoring electrodes] Respiratory 18 18 19 Rate Blood Pressure 87/59 L 91/63 112/80 [Left Brachial artery] O2 Saturation 95 95 95 02/10/21 02/10/21 02/10/21 17:00 18:00 19:00 Temperature Heart Rate Heart Rate [ 51 L 59 L 70 Monitoring electrodes] Respiratory 19 23 22 Rate Blood Pressure 91/67 94/55 L 117/79 [Left Brachial artery] O2 Saturation 95 99 92 02/10/21 02/10/21 02/10/21 19:25 19:27 20:00 Temperature 36.6 C Heart Rate 65 Heart Rate [ 65 Monitoring electrodes] Respiratory 22 28 H Rate Blood Pressure 117/79 [Left Brachial artery] O2 Saturation 94 02/10/21 02/10/21 02/10/21 21:00 22:00 23:00 Temperature 36.5 C Heart Rate Heart Rate [ 70 60 57 L Monitoring electrodes] Respiratory 32 H 19 23 Rate Blood Pressure 108/61 89/44 L 93/62 [Left Brachial artery] O2 Saturation 90 L 95 93 02/11/21 02/11/21 02/11/21 00:00 00:15 01:00 Temperature Heart Rate Heart Rate [ 50 L 61 Monitoring electrodes] Respiratory 18 25 H Rate Blood Pressure 83/56 L 97/52 L 103/64 [Left Brachial artery] O2 Saturation 96 91 L 02/11/21 02/11/21 02/11/21 02:00 03:00 03:48 Temperature 36.6 C Heart Rate Heart Rate [ 63 53 L Monitoring electrodes] Respiratory 22 23 Rate Blood Pressure 92/50 L 94/54 L [Left Brachial artery] O2 Saturation 94 95 02/11/21 02/11/21 02/11/21 04:00 05:00 06:00 Temperature Heart Rate Heart Rate [ 65 53 L 73 Monitoring electrodes] Respiratory 28 H 20 29 H Rate Blood Pressure 98/67 79/54 L 120/66 [Left Brachial artery] O2 Saturation 92 93 85 L 02/11/21 02/11/21 02/11/21 07:00 08:00 09:00 Temperature Heart Rate Heart Rate [ 55 L 56 L 88 Monitoring electrodes] Respiratory 19 19 35 H Rate Blood Pressure 81/55 L 100/54 L 117/70 [Left Brachial artery] O2 Saturation 92 94 02/11/21 10:00 Temperature Heart Rate Heart Rate [ 89 Monitoring electrodes] Respiratory 35 H Rate Blood Pressure 102/47 L [Left Brachial artery] O2 Saturation 85 L Oxygen O2 Source [facility] Oxygen Flow Rate 2 I&O (Last 24 Hrs): Intake and Output Totals x24h 02/09/21 02/10/21 02/11/21 23:59 23:59 23:59 Intake Total 1560 1520 940 Output Total 1410 1415 605 Balance 150 105 335 General: Alert, Oriented x3, Other (Weak, frail, dyspneic) HEENT: PERRLA, EOMI Neck: Supple, No JVD Neuro: Alert, Non Focal, Oriented Times 3 Cardiovascular: Regular rate Respiratory: Chest non-tender, Other (Decreased air movement. Dyspneic, Mild crackles) Abdomen: Normal bowel sounds, Soft, No tenderness, No masses Extremities: No clubbing, Other (right lower extremity swelling) Skin: No rashes, No breakdown, No significant lesion - Results Results: Laboratory Results WBC 12.4 x10^3/uL (4.8-10.8) H 02/11/21 04:30 RBC 3.18 10^6/uL (4.70-6.10) L 02/11/21 04:30 Hgb 10.4 g/dL (14.0-18.0) L 02/11/21 04:30 Hct 31.5 % (42.0-52.0) L 02/11/21 04:30 MCV 99.1 fL (80.0-94.0) H 02/11/21 04:30 MCH 32.7 pg (27.0-31.0) H 02/11/21 04:30 MCHC 33.0 g/dL (32.0-36.0) 02/11/21 04:30 RDW 13.2 % (12.0-15.0) 02/11/21 04:30 Plt Count 208 10^3/uL (130-450) 02/11/21 04:30 MPV 10.3 fL (7.4-11.4) 02/11/21 04:30 Neut # (Auto) 11.8 10^3/uL (1.5-6.6) H 02/11/21 04:30 Lymph # (Auto) 0.2 10^3/uL (1.5-3.5) L 02/11/21 04:30 [place] # (Auto) 0.3 10^3/uL (0.0-1.0) 02/11/21 04:30 Eos # (Auto) 0.0 10^3/uL (0.0-0.7) 02/11/21 04:30 Baso # (Auto) 0.0 10^3/uL (0.0-0.1) 02/11/21 04:30 Absolute Nucleated RBC 0.00 x10^3/uL 02/11/21 04:30 Nucleated RBC % 0.0 /100WBC 02/11/21 04:30 D-Dimer 348.8 ng/mL (200.0-255.0) H 01/29/21 16:35 Bld Gas Analysis Time 1040 02/09/21 10:31 Sample Site RIGHT RADIAL 02/09/21 10:31 ABG pH 7.50 (7.35-7.45) H 02/09/21 10:31 ABG pCO2 36 mmHg (34-45) 02/09/21 10:31 ABG pO2 75 mmHg (80-100) L 02/09/21 10:31 ABG HCO3 27.1 mmol/L (22.0-26.0) H 02/09/21 10:31 ABG Total CO2 28.2 MMOL/L (21.0-29.0) 02/09/21 10:31 ABG O2 Saturation 95 % (94-98) 02/09/21 10:31 ABG Base Excess 3.8 mmol/L (-2.0-3.0) H 02/09/21 10:31 Choco Test POSITIVE 02/09/21 10:31 O2 Delivery Device NASAL CANNULA 02/09/21 10:31 O2 Liters/Min 40.00 LPM 02/09/21 10:31 FiO2 95.00 02/09/21 10:31 Sodium 131 mmol/L (135-145) L 02/11/21 04:30 Potassium 4.3 mmol/L (3.5-5.0) 02/11/21 04:30 Chloride 97 mmol/L (101-111) L 02/11/21 04:30 Carbon Dioxide 27 mmol/L (21-32) 02/11/21 04:30 Anion Gap 7.0 (6-13) 02/11/21 04:30 BUN 27 mg/dL (6-20) H 02/11/21 04:30 Creatinine 0.7 mg/dL (0.6-1.2) 02/11/21 04:30 Estimated GFR (MDRD) 109 (>89) 02/11/21 04:30 Glucose 173 mg/dL (70-100) H 02/11/21 04:30 Lactic Acid 1.8 mmol/L (0.5-2.2) 01/29/21 16:35 Calcium 8.0 mg/dL (8.5-10.3) L 02/11/21 04:30 Magnesium 2.4 mg/dL (1.7-2.8) 02/08/21 08:16 Total Bilirubin 0.6 mg/dL (0.2-1.0) 01/29/21 16:35 AST 59 IU/L (10-42) H 01/29/21 16:35 ALT 27 IU/L (10-60) 01/29/21 16:35 Alkaline Phosphatase 37 IU/L (42-121) L 01/29/21 16:35 C-Reactive Protein 24.7 mg/dL (0-1.0) H 02/11/21 04:30 B-Natriuretic Peptide 314 pg/mL (5-100) H 02/09/21 04:42 Total Protein 7.2 g/dL (6.7-8.2) 01/29/21 16:35 Albumin 3.7 g/dL (3.2-5.5) 01/29/21 16:35 Globulin 3.5 g/dL (2.1-4.2) 01/29/21 16:35 Albumin/Globulin Ratio 1.1 (1.0-2.2) 01/29/21 16:35 25-OH Vitamin D Total 64 ng/mL (30-100) 02/02/21 11:19 TSH 0.46 uIU/mL (0.34-5.60) 02/08/21 08:16 Nasal Adenovirus (PCR) NOT DETECTED 01/29/21 16:43 Nasal B. parapertussis DNA (PCR) NOT DETECTED 01/29/21 16:43 Nasal Coronavir 229E PCR NOT DETECTED 01/29/21 16:43 Nasal Coronavir HKU1 PCR NOT DETECTED 01/29/21 16:43 Nasal Coronavir NL63 PCR NOT DETECTED 01/29/21 16:43 Nasal Coronavir OC43 PCR NOT DETECTED 01/29/21 16:43 Nasal Enterovir/Rhinovir PCR NOT DETECTED 01/29/21 16:43 Nasal Influenza B PCR NOT DETECTED 01/29/21 16:43 Nasal Parainfluen 1 PCR NOT DETECTED 01/29/21 16:43 Nasal Parainfluen 2 PCR NOT DETECTED 01/29/21 16:43 Nasal Parainfluen 3 PCR NOT DETECTED 01/29/21 16:43 Nasal Parainfluen 4 PCR NOT DETECTED 01/29/21 16:43 Nasal RSV (PCR) NOT DETECTED 01/29/21 16:43 Nasal Screen MRSA (PCR) NEGATIVE (NEGATIVE) 02/09/21 11:30 Nasal B.pertussis DNA PCR NOT DETECTED 01/29/21 16:43 Nasal C.pneumoniae (PCR) NOT DETECTED 01/29/21 16:43 Candida Human Metapneumo PCR NOT DETECTED 01/29/21 16:43 Nasal M.pneumoniae (PCR) NOT DETECTED 01/29/21 16:43 Nasal SARS-CoV-2 (PCR) DETECTED A 01/29/21 16:43 ABX Reporting Has patient been on IV antibiotics over the past 48 hours?: Yes
[2021-02-11] MEDS: LORazepam 0.5 MG TABLET PO PRN ×2 (11:15→17:39)
[2021-02-11] MEDS: traZODone 50 MG TABLET PO SCH (20:48)
[2021-02-12] MEDS: MORPHINE 2 MG/ML CARPUJECT IVP PRN ×10 (02:01→23:40)
[2021-02-12] MEDS: LORazepam 0.5 MG TABLET PO PRN ×2 (02:01→08:35)
[2021-02-12] MEDS: LINEZOLID 600 MG/300 ML 600 MG/300 ML BAG IV SCH ×2 (03:18→14:24)
--- NOTE | 2021-02-12 07:41 | PROVIDER PROGRESS NOTE ---
Assessment/Plan - Problem List (1) Acute respiratory failure with hypoxia Assessment/Plan: Secondary to COVID-19 pneumonia and possibly HCAP. Patient's respiratory status took a turn for the worse today. Attempt at placing the patient on an Oxymizer resulted in his oxygen saturation dropping into the 70s. The patient was placed on BiPAP. He is exhausted/frail and mainly able to communicate with hand gestures Currently on cefepime and Zyvox. Continue dexamethasone 6 mg IV daily. Completed remdesivir. (2) COVID-19 Assessment/Plan: Patient's respiratory status took a turn for the worse today. Attempt at placing the patient on an Oxymizer resulted in his oxygen saturation dropping into the 70s. The patient was placed on BiPAP. He is exhausted/frail and mainly able to communicate with hand gestures Currently on cefepime and Zyvox. Continue dexamethasone 6 mg IV daily. Completed remdesivir. (3) HCAP (healthcare-associated pneumonia) Assessment/Plan: Patient's respiratory status took a turn for the worse today. Attempt at placing the patient on an Oxymizer resulted in his oxygen saturation dropping into the 70s. The patient was placed on BiPAP. He is exhausted/frail and mainly able to communicate with hand gestures WBC 13.7. Currently on cefepime and Zyvox. Continue dexamethasone 6 mg IV daily. Completed remdesivir. (4) Atrial fibrillation Assessment/Plan: On Eliquis 5 mg p.o. twice daily Patient's heart rate is usually normal during the day and slightly bradycardic at night. He is not on any rate controlling medication. 2D echo done 02/04/21 showed a preserved ejection fraction at 65 to 70% (5) Bradycardia Assessment/Plan: He is bradycardic at times overnight while asleep but otherwise heart rate is stable and he is asymptomatic. (6) Edema of right lower extremity Assessment/Plan: Lower extremity Dopplers done bilaterally were negative for any deep vein thrombosis. - Current Meds Current Meds: Current Medications Generic Name Dose Route Start Last Admin Trade Name Freq PRN Reason Stop Dose Admin Acetaminophen 650 mg 01/29/21 17:09 02/09/21 08:28 Acetaminophen 325 Mg Tablet PO 650 mg Q4HR PRN Administration Pain 1 to 4 Albuterol 2 puffs 01/30/21 08:37 02/10/21 12:04 Albuterol 1 Puff INH 2 puffs Q4HR PRN Administration Wheezing Apixaban 5 mg 02/04/21 21:00 02/11/21 20:48 Apixaban 5 Mg Tablet PO 5 mg BID GEORGIE Administration Cholecalciferol 50 mcg 02/08/21 09:00 02/11/21 09:06 Cholecalciferol 25 Mcg Tablet PO 50 mcg DAILY GEORGIE Administration Dexamethasone 6 mg 02/10/21 09:00 02/11/21 09:06 Dexamethasone 4 Mg/Ml Vial IVP 6 mg DAILY GEORGIE Administration Docusate Sodium 250 - 500 mg 02/03/21 09:00 02/11/21 09:07 Docusate Sodium 250 Mg Capsule PO 250 mg DAILY GEORGIE Administration Cefepime HCl 2 gm/ Sodium 100 mls @ 200 mls/hr 02/07/21 11:00 02/11/21 21:16 Chloride IV 02/14/21 10:59 Infused BID GEORGIE Infusion Linezolid 600 mg in 300 mls @ 300 mls/hr 02/09/21 15:00 02/12/21 04:19 Zyvox 600 Mg/300 Ml IV 02/15/21 14:59 Infused Q12H GEORGIE Infusion Lidocaine 1 patch 02/06/21 15:29 02/10/21 19:17 Lidocaine Patch 5% TOP 1 patch DAILY PRN Administration PAIN Lorazepam 0.5 mg 02/11/21 10:33 02/12/21 02:01 Lorazepam 0.5 Mg Tablet PO 0.5 mg Q6H PRN Administration Anxiety Morphine Sulfate 2 mg 02/09/21 10:12 02/12/21 05:36 Morphine 2 Mg/Ml Carpuject IVP 2 mg Q2HR PRN Administration PAIN Multivitamins/Minerals 1 tab 02/08/21 09:00 02/11/21 09:05 Multivitamin W/Minerals Tablet PO 1 tab DAILYWM GEORGIE Administration Ondansetron HCl 4 mg 01/29/21 17:09 01/30/21 22:04 Ondansetron Odt 4 Mg Tablet TL 4 mg Q6HR PRN Administration Nausea / Vomiting Oxycodone HCl 5 mg 01/29/21 17:09 02/09/21 09:39 Oxycodone 5 Mg Tablet PO 5 mg Q4HR PRN Administration Pain 5 to 7 Oxymetazoline HCl 2 sprays 02/07/21 21:10 02/08/21 08:03 Oxymetazoline Hcl 100 Sprays Bottle CANDIDA 2 sprays BID PRN Administration Nasal Congestion Polyethylene Glycol 17 gm 02/01/21 09:00 02/11/21 09:08 Polyethylene Glycol 3350 17 Gm Packet PO Not Given DAILY GEORGIE Senna 8.6 - 17.2 mg 02/03/21 09:00 02/11/21 09:07 Senna 8.6 Mg Tablet PO 8.6 mg DAILY GEORGIE Administration Sodium Chloride 10 ml 01/29/21 17:09 02/11/21 13:42 Sodium Chloride Flush 0.9% 10 Ml Syringe IVP 10 ml PRN PRN Administration NEEDED PER PROVIDER ORDERS Sodium Chloride 10 ml 01/30/21 01:00 02/11/21 22:44 Sodium Chloride Flush 0.9% 10 Ml Syringe IVP 10 ml 0100,0900,1700 GEORGIE Administration Throat Lozenges 1 lozenge 01/30/21 02:25 01/30/21 04:54 Benzocaine/Menthol Lozenge MM 1 lozenge Q2HR PRN Administration Throat pain Trazodone HCl 50 mg 02/02/21 21:00 02/11/21 20:48 Trazodone 50 Mg Tablet PO 50 mg QPM GEORGIE Administration - Lab Result Fish Bone Diagrams: 02/12/21 04:50 02/12/21 04:50 - Additional Planning My Orders: My Active Orders 02/11/21 10:33 LORazepam [Ativan] 0.5 mg PO Q6H PRN 02/12/21 07:40 BMP - BASIC METABOLIC PANEL [CHEM] Routine CBC - COMP BLD CT W/AUTO DIFF [HEME] Routine 02/13/21 05:00 BMP - BASIC METABOLIC PANEL [CHEM] DAILYLAB CBC - COMP BLD CT W/AUTO DIFF [HEME] DAILYLAB 02/14/21 05:00 BMP - BASIC METABOLIC PANEL [CHEM] DAILYLAB CBC - COMP BLD CT W/AUTO DIFF [HEME] DAILYLAB 02/15/21 05:00 BMP - BASIC METABOLIC PANEL [CHEM] DAILYLAB CBC - COMP BLD CT W/AUTO DIFF [HEME] DAILYLAB 02/16/21 05:00 BMP - BASIC METABOLIC PANEL [CHEM] DAILYLAB CBC - COMP BLD CT W/AUTO DIFF [HEME] DAILYLAB 02/17/21 05:00 BMP - BASIC METABOLIC PANEL [CHEM] DAILYLAB CBC - COMP BLD CT W/AUTO DIFF [HEME] DAILYLAB Subjective - Subjective Patient Reports: Other (Patient's clinical condition took a turn for the worse this morning. He is significantly exhausted and dyspneic to the point of inability to communicate verbally. He mainly uses hand gestures. An attempt on an Oxymizer resulted in oxygen saturation in the 70s.) Objective Vital Signs: Vital Signs - 24 hr 02/11/21 02/11/21 02/11/21 08:00 09:00 10:00 Temperature Heart Rate 56 L Heart Rate [ 56 L 88 89 Monitoring electrodes] Respiratory 16 35 H 35 H Rate Blood Pressure 100/54 L 117/70 102/47 L [Left Brachial artery] O2 Saturation 94 85 L 02/11/21 02/11/21 02/11/21 11:00 12:00 12:40 Temperature Heart Rate 64 Heart Rate [ 72 72 Monitoring electrodes] Respiratory 30 H 31 H 29 H Rate Blood Pressure 107/60 99/58 L [Left Brachial artery] O2 Saturation 92 90 L 02/11/21 02/11/21 02/11/21 13:00 14:00 15:00 Temperature Heart Rate Heart Rate [ 80 56 L 58 L Monitoring electrodes] Respiratory 23 18 17 Rate Blood Pressure 95/57 L 101/61 94/69 [Left Brachial artery] O2 Saturation 90 L 94 95 02/11/21 02/11/21 02/11/21 16:00 17:00 17:30 Temperature Heart Rate 70 Heart Rate [ 55 L 61 Monitoring electrodes] Respiratory 20 225 H 16 Rate Blood Pressure 105/79 98/60 [Left Brachial artery] O2 Saturation 94 95 02/11/21 02/11/21 02/11/21 18:00 19:00 20:00 Temperature 37.1 C Heart Rate Heart Rate [ 52 L 52 L 62 Monitoring electrodes] Respiratory 22 21 27 H Rate Blood Pressure 96/63 103/65 115/70 [Left Brachial artery] O2 Saturation 94 95 100 02/11/21 02/11/21 02/11/21 21:00 22:00 23:00 Temperature Heart Rate Heart Rate [ 60 53 L 50 L Monitoring electrodes] Respiratory 19 18 21 Rate Blood Pressure 112/68 90/66 95/63 [Left Brachial artery] O2 Saturation 94 94 95 02/12/21 02/12/21 02/12/21 00:00 01:00 02:00 Temperature Heart Rate Heart Rate [ 47 L 45 L 55 L Monitoring electrodes] Respiratory 15 15 23 Rate Blood Pressure 96/62 88/56 L 119/76 [Left Brachial artery] O2 Saturation 95 95 94 02/12/21 02/12/21 02/12/21 03:00 04:00 05:00 Temperature 36.5 C Heart Rate Heart Rate [ 47 L 49 L 60 Monitoring electrodes] Respiratory 17 15 24 Rate Blood Pressure 101/53 L 90/62 105/60 [Left Brachial artery] O2 Saturation 95 96 93 02/12/21 02/12/21 06:00 07:00 Temperature Heart Rate Heart Rate [ 54 L 53 L Monitoring electrodes] Respiratory 30 H 32 H Rate Blood Pressure 100/58 L 106/65 [Left Brachial artery] O2 Saturation 95 96 Oxygen O2 Source HHFNC Oxygen Flow Rate 2 I&O (Last 24 Hrs): Intake and Output Totals x24h 02/10/21 02/11/21 02/12/21 23:59 23:59 23:59 Intake Total 1520 1590 300 Output Total 1415 1190 250 Balance 105 400 50 General: Oriented x3, Other (Exhausted, frail/gaunt) HEENT: Atraumatic Neck: Supple, No JVD Neuro: Alert, Non Focal Cardiovascular: Other (Irregularly irregular) Respiratory: Chest non-tender, Other (Very diminished breath sound with mild crackles) Abdomen: Normal bowel sounds, Soft, No tenderness Extremities: No clubbing, No cyanosis, No tenderness/swelling, Other (+1 right lower extremity edema) Skin: No rashes - Results Results: Laboratory Results WBC 12.4 x10^3/uL (4.8-10.8) H 02/11/21 04:30 RBC 3.18 10^6/uL (4.70-6.10) L 02/11/21 04:30 Hgb 10.4 g/dL (14.0-18.0) L 02/11/21 04:30 Hct 31.5 % (42.0-52.0) L 02/11/21 04:30 MCV 99.1 fL (80.0-94.0) H 02/11/21 04:30 MCH 32.7 pg (27.0-31.0) H 02/11/21 04:30 MCHC 33.0 g/dL (32.0-36.0) 02/11/21 04:30 RDW 13.2 % (12.0-15.0) 02/11/21 04:30 Plt Count 208 10^3/uL (130-450) 02/11/21 04:30 MPV 10.3 fL (7.4-11.4) 02/11/21 04:30 Neut # (Auto) 11.8 10^3/uL (1.5-6.6) H 02/11/21 04:30 Lymph # (Auto) 0.2 10^3/uL (1.5-3.5) L 02/11/21 04:30 [place] # (Auto) 0.3 10^3/uL (0.0-1.0) 02/11/21 04:30 Eos # (Auto) 0.0 10^3/uL (0.0-0.7) 02/11/21 04:30 Baso # (Auto) 0.0 10^3/uL (0.0-0.1) 02/11/21 04:30 Absolute Nucleated RBC 0.00 x10^3/uL 02/11/21 04:30 Nucleated RBC % 0.0 /100WBC 02/11/21 04:30 D-Dimer 348.8 ng/mL (200.0-255.0) H 01/29/21 16:35 Bld Gas Analysis Time 1040 02/09/21 10:31 Sample Site RIGHT RADIAL 02/09/21 10:31 ABG pH 7.50 (7.35-7.45) H 02/09/21 10:31 ABG pCO2 36 mmHg (34-45) 02/09/21 10:31 ABG pO2 75 mmHg (80-100) L 02/09/21 10:31 ABG HCO3 27.1 mmol/L (22.0-26.0) H 02/09/21 10:31 ABG Total CO2 28.2 MMOL/L (21.0-29.0) 02/09/21 10:31 ABG O2 Saturation 95 % (94-98) 02/09/21 10:31 ABG Base Excess 3.8 mmol/L (-2.0-3.0) H 02/09/21 10:31 Choco Test POSITIVE 02/09/21 10:31 O2 Delivery Device NASAL CANNULA 02/09/21 10:31 O2 Liters/Min 40.00 LPM 02/09/21 10:31 FiO2 95.00 02/09/21 10:31 Sodium 131 mmol/L (135-145) L 02/11/21 04:30 Potassium 4.3 mmol/L (3.5-5.0) 02/11/21 04:30 Chloride 97 mmol/L (101-111) L 02/11/21 04:30 Carbon Dioxide 27 mmol/L (21-32) 02/11/21 04:30 Anion Gap 7.0 (6-13) 02/11/21 04:30 BUN 27 mg/dL (6-20) H 02/11/21 04:30 Creatinine 0.7 mg/dL (0.6-1.2) 02/11/21 04:30 Estimated GFR (MDRD) 109 (>89) 02/11/21 04:30 Glucose 173 mg/dL (70-100) H 02/11/21 04:30 Lactic Acid 1.8 mmol/L (0.5-2.2) 01/29/21 16:35 Calcium 8.0 mg/dL (8.5-10.3) L 02/11/21 04:30 Magnesium 2.4 mg/dL (1.7-2.8) 02/08/21 08:16 Total Bilirubin 0.6 mg/dL (0.2-1.0) 01/29/21 16:35 AST 59 IU/L (10-42) H 01/29/21 16:35 ALT 27 IU/L (10-60) 01/29/21 16:35 Alkaline Phosphatase 37 IU/L (42-121) L 01/29/21 16:35 C-Reactive Protein 19.4 mg/dL (0-1.0) H 02/12/21 04:50 B-Natriuretic Peptide 314 pg/mL (5-100) H 02/09/21 04:42 Total Protein 7.2 g/dL (6.7-8.2) 01/29/21 16:35 Albumin 3.7 g/dL (3.2-5.5) 01/29/21 16:35 Globulin 3.5 g/dL (2.1-4.2) 01/29/21 16:35 Albumin/Globulin Ratio 1.1 (1.0-2.2) 01/29/21 16:35 25-OH Vitamin D Total 64 ng/mL (30-100) 02/02/21 11:19 TSH 0.46 uIU/mL (0.34-5.60) 02/08/21 08:16 Nasal Adenovirus (PCR) NOT DETECTED 01/29/21 16:43 Nasal B. parapertussis DNA (PCR) NOT DETECTED 01/29/21 16:43 Nasal Coronavir 229E PCR NOT DETECTED 01/29/21 16:43 Nasal Coronavir HKU1 PCR NOT DETECTED 01/29/21 16:43 Nasal Coronavir NL63 PCR NOT DETECTED 01/29/21 16:43 Nasal Coronavir OC43 PCR NOT DETECTED 01/29/21 16:43 Nasal Enterovir/Rhinovir PCR NOT DETECTED 01/29/21 16:43 Nasal Influenza B PCR NOT DETECTED 01/29/21 16:43 Nasal Parainfluen 1 PCR NOT DETECTED 01/29/21 16:43 Nasal Parainfluen 2 PCR NOT DETECTED 01/29/21 16:43 Nasal Parainfluen 3 PCR NOT DETECTED 01/29/21 16:43 Nasal Parainfluen 4 PCR NOT DETECTED 01/29/21 16:43 Nasal RSV (PCR) NOT DETECTED 01/29/21 16:43 Nasal Screen MRSA (PCR) NEGATIVE (NEGATIVE) 02/09/21 11:30 Nasal B.pertussis DNA PCR NOT DETECTED 01/29/21 16:43 Nasal C.pneumoniae (PCR) NOT DETECTED 01/29/21 16:43 Candida Human Metapneumo PCR NOT DETECTED 01/29/21 16:43 Nasal M.pneumoniae (PCR) NOT DETECTED 01/29/21 16:43 Nasal SARS-CoV-2 (PCR) DETECTED A 01/29/21 16:43 ABX Reporting Has patient been on IV antibiotics over the past 48 hours?: Yes
[2021-02-12 07:54] LABS: BASOPHILS % (AUTO) 0.1 %; HCT - HEMATOCRIT 31.9 % (42.0-52.0); HGB - HEMOGLOBIN 10.8 g/dL (14.0-18.0); LYMPHOCYTES # (AUTO) 0.3 10^3/uL (1.5-3.5); LYMPHOCYTES % (AUTO) 2.2 %; MEAN CORPUSCULAR HEMOGLOBIN 33.3 pg (27.0-31.0); MEAN CORPUSCULAR HGB CONC 33.9 g/dL (32.0-36.0); MEAN CORPUSCULAR VOLUME 98.5 fL (80.0-94.0); MEAN PLATELET VOLUME 10.6 fL (7.4-11.4); MONOCYTES # (AUTO) 0.4 10^3/uL (0.0-1.0); MONOCYTES % (AUTO) 2.7 %; NEUTROPHILS # (AUTO) 12.9 10^3/uL (1.5-6.6); NEUTROPHILS % (AUTO) 94.5 %; PLT - PLATELET COUNT 229 10^3/uL (130-450); RED BLOOD COUNT 3.24 10^6/uL (4.70-6.10); RED CELL DISTRIBUTION WIDTH 13.1 % (12.0-15.0); WHITE BLOOD COUNT 13.7 x10^3/uL (4.8-10.8)
[2021-02-12 08:12] LABS: CALCIUM 8.2 mg/dL (8.5-10.3); CREATININE 0.7 mg/dL (0.6-1.2); POTASSIUM 4.6 mmol/L (3.5-5.0)
[2021-02-12] MEDS: APIXABAN 5 MG TABLET PO SCH ×2 (08:35→19:44)
[2021-02-12] MEDS: DEXAMETHASONE 4 MG/ML VIAL IVP SCH (08:35)
[2021-02-12] MEDS: DOCUSATE SODIUM 250 MG CAPSULE PO SCH (08:35)
[2021-02-12] MEDS: CHOLECALCIFEROL 25 MCG TABLET PO SCH (08:36)
[2021-02-12] MEDS: CEFEPIME 2 GM in SODIUM CHLORIDE 0.9% MINIBAG 100 ML IV SCH ×2 (08:36→20:01)
[2021-02-12] MEDS: SODIUM CHLORIDE FLUSH 0.9% 10 ML SYRINGE IVP SCH ×2 (10:21→16:40)
[2021-02-12] MEDS ORDERED: MORPHINE 2 MG/ML CARPUJECT IVP STA (10:23)
[2021-02-12] MEDS: polyethylene glycoL 3350 17 GM PACKET PO SCH (10:28)
[2021-02-12] MEDS: LORazepam 2 MG/ML VIAL IVP PRN ×3 (10:49→23:40)
[2021-02-12] MEDS: SODIUM CHLORIDE FLUSH 0.9% 10 ML SYRINGE IVP PRN (10:52)
--- NOTE | 2021-02-12 12:31 | XRAY Report ---
PROCEDURE: Chest 1 View X-Ray INDICATIONS: increasing hypoxia and dyspnea TECHNIQUE: One view of the chest was acquired. COMPARISON: 02/09/2021 FINDINGS: Surgical changes and devices: None. Lungs and pleura: Diffuse bilateral pulmonary infiltrates have a central predominance and are worseni ng particularly in the right upper lobe. There is obscuration of both hemidiaphragms with blunting of both costophrenic angles present as well. Mediastinum: Mediastinal contours appear normal. Heart size is normal. Bones and chest wall: No suspicious bony lesions. Overlying soft tissues appear unremarkable. IMPRESSION: Worsening bilateral pulmonary infiltrates Stable bibasilar pleural effusions. Reviewed by: Saud Olivia MD on 02/12/2021 11:30 AM [facility] Approved by: Saud Olivia MD on 02/12/2021 11:30 AM [facility] Station ID: [id number]
[2021-02-12] MEDS: SENNA 8.6 MG TABLET PO SCH (12:35)
[2021-02-12 12:57] LABS: ABG PCO2 42 mmHg (34-45); ABG PH 7.45 (7.35-7.45)
[2021-02-12 12:58] LABS: ABG BASE EXCESS 3.9 mmol/L (-2.0-3.0); ABG HCO3 28.3 mmol/L (22.0-26.0); ABG OXYGEN SATURATION 95 % (94-98); ABG PO2 73 mmHg (80-100); ABG TCO2 29.6 MMOL/L (21.0-29.0)
[2021-02-12] MEDS ORDERED: FUROSEMIDE 20 MG/2 ML VIAL IVP STA (13:10)
[2021-02-12] MEDS: MULTIVITAMIN W/MINERALS TABLET PO SCH (14:15)
[2021-02-12 15:44] LABS: ABG BASE EXCESS 3.7 mmol/L (-2.0-3.0); ABG HCO3 28.4 mmol/L (22.0-26.0); ABG OXYGEN SATURATION 96 % (94-98); ABG PCO2 43 mmHg (34-45); ABG PH 7.44 (7.35-7.45); ABG PO2 81 mmHg (80-100); ABG TCO2 29.7 MMOL/L (21.0-29.0)
[2021-02-12] MEDS: traZODone 50 MG TABLET PO SCH ×2 (19:44→23:42)
[2021-02-13] MEDS: LINEZOLID 600 MG/300 ML 600 MG/300 ML BAG IV SCH ×2 (03:59→15:02)
[2021-02-13] MEDS: SODIUM CHLORIDE FLUSH 0.9% 10 ML SYRINGE IVP SCH ×3 (04:16→18:06)
[2021-02-13] MEDS: MORPHINE 2 MG/ML CARPUJECT IVP PRN ×6 (05:23→20:37)
[2021-02-13] MEDS: LORazepam 2 MG/ML VIAL IVP PRN (05:23)
[2021-02-13 07:10] LABS: BASOPHILS % (AUTO) 0.1 %; EOSINOPHILS % (AUTO) 0.2 %; HCT - HEMATOCRIT 35.2 % (42.0-52.0); HGB - HEMOGLOBIN 11.6 g/dL (14.0-18.0); LYMPHOCYTES # (AUTO) 0.4 10^3/uL (1.5-3.5); LYMPHOCYTES % (AUTO) 2.7 %; MEAN CORPUSCULAR VOLUME 100.3 fL (80.0-94.0); MEAN PLATELET VOLUME 10.6 fL (7.4-11.4); MONOCYTES # (AUTO) 0.2 10^3/uL (0.0-1.0); NEUTROPHILS # (AUTO) 14.1 10^3/uL (1.5-6.6); NEUTROPHILS % (AUTO) 95.1 %; PLT - PLATELET COUNT 207 10^3/uL (130-450); RED BLOOD COUNT 3.51 10^6/uL (4.70-6.10); RED CELL DISTRIBUTION WIDTH 13.1 % (12.0-15.0); WHITE BLOOD COUNT 14.9 x10^3/uL (4.8-10.8)
[2021-02-13] MEDS ORDERED: FUROSEMIDE 40 MG/4 ML VIAL IVP STA (07:38)
[2021-02-13 07:40] LABS: CALCIUM 8.4 mg/dL (8.5-10.3); CREATININE 0.7 mg/dL (0.6-1.2); CRP - C-REACTIVE PROTEIN 21.5 mg/dL (0-1.0); POTASSIUM 4.6 mmol/L (3.5-5.0)
[2021-02-13 07:52] LABS: ABG BASE EXCESS 5.6 mmol/L (-2.0-3.0); ABG PCO2 38 mmHg (34-45); ABG PO2 56 mmHg (80-100); ABG TCO2 30.1 MMOL/L (21.0-29.0)
[2021-02-13 07:53] LABS: ABG OXYGEN SATURATION 91 % (94-98)
--- NOTE | 2021-02-13 07:57 | PROVIDER PROGRESS NOTE ---
Assessment/Plan - Problem List (1) Acute respiratory failure with hypoxia Assessment/Plan: Secondary to COVID-19 pneumonia and possibly HCAP. Patient's respiratory status further took a turn for the worse today. Right being on 100% FiO2 on the BiPAP his oxygen saturation was in the 70s. After discussion with the patient's family they requested to proceed with intubation. ABG prior to intubation:pH 7.50, PCO2 38, PO2 56, bicarb 29.0. Patient was intubated. ABG after intubation: pH 7.47, PCO2 41, PO2 62 bicarb 29.2 If patient remains stable tonight will consider proning tomorrow morning. Continue cefepime and Zyvox. Continue dexamethasone 6 mg IV daily. Completed remdesivir. Lasix 40 mg IV twice daily ordered for 5 doses (2) COVID-19 Assessment/Plan: Patient's respiratory status further took a turn for the worse today. Right being on 100% FiO2 on the BiPAP his oxygen saturation was in the 70s. After discussion with the patient's family they requested to proceed with intubation. ABG prior to intubation:pH 7.50, PCO2 38, PO2 56, bicarb 29.0. Patient was intubated. ABG after intubation: pH 7.47, PCO2 41, PO2 62 bicarb 29.2 If patient remains stable tonight will consider proning tomorrow morning. Continue cefepime and Zyvox. Continue dexamethasone 6 mg IV daily. Completed remdesivir. (3) HCAP (healthcare-associated pneumonia) Assessment/Plan: Patient's respiratory status further took a turn for the worse today. Right being on 100% FiO2 on the BiPAP his oxygen saturation was in the 70s. After discussion with the patient's family they requested to proceed with intubation. ABG prior to intubation:pH 7.50, PCO2 38, PO2 56, bicarb 29.0. Patient was intubated. ABG after intubation: pH 7.47, PCO2 41, PO2 62 bicarb 29.2 If patient remains stable tonight will consider proning tomorrow morning. Continue cefepime and Zyvox. Continue dexamethasone 6 mg IV daily. Completed remdesivir. (4) Atrial fibrillation Assessment/Plan: Patient was initially tachycardic during severe respiratory distress but heart rate has normalized. He is not on any rate controlling medication. 2D echo done 02/04/21 showed a preserved ejection fraction at 65 to 70% Avelox 80 mg twice daily ordered. Eliquis held while intubated. (5) Bradycardia Assessment/Plan: Heart rate currently stable (6) Edema of right lower extremity Assessment/Plan: Lower extremity Dopplers done bilaterally were negative for any deep vein thrombosis. On Lasix 40 mg IV twice daily x5 doses. Started on the morning of 02/13/2021 - Current Meds Current Meds: Current Medications Generic Name Dose Route Start Last Admin Trade Name Freq PRN Reason Stop Dose Admin Acetaminophen 650 mg 01/29/21 17:09 02/09/21 08:28 Acetaminophen 325 Mg Tablet PO 650 mg Q4HR PRN Administration Pain 1 to 4 Albuterol 2 puffs 01/30/21 08:37 02/10/21 12:04 Albuterol 1 Puff INH 2 puffs Q4HR PRN Administration Wheezing Apixaban 5 mg 02/04/21 21:00 02/12/21 19:44 Apixaban 5 Mg Tablet PO Not Given BID GEORGIE Cholecalciferol 50 mcg 02/08/21 09:00 02/12/21 08:36 Cholecalciferol 25 Mcg Tablet PO 50 mcg DAILY GEORGIE Administration Dexamethasone 6 mg 02/10/21 09:00 02/12/21 08:35 Dexamethasone 4 Mg/Ml Vial IVP 6 mg DAILY GEORGIE Administration Docusate Sodium 250 - 500 mg 02/03/21 09:00 02/12/21 08:35 Docusate Sodium 250 Mg Capsule PO 250 mg DAILY GEORGIE Administration Cefepime HCl 2 gm/ Sodium 100 mls @ 200 mls/hr 02/07/21 11:00 02/12/21 21:12 Chloride IV 02/14/21 10:59 Infused BID GEORGIE Infusion Linezolid 600 mg in 300 mls @ 300 mls/hr 02/09/21 15:00 02/13/21 05:23 Zyvox 600 Mg/300 Ml IV 02/15/21 14:59 Infused Q12H GEORGIE Infusion Lidocaine 1 patch 02/06/21 15:29 02/10/21 19:17 Lidocaine Patch 5% TOP 1 patch DAILY PRN Administration PAIN Lorazepam 0.5 mg 02/11/21 10:33 02/12/21 08:35 Lorazepam 0.5 Mg Tablet PO 0.5 mg Q6H PRN Administration Anxiety Lorazepam 0.5 mg 02/12/21 10:19 02/13/21 05:23 Lorazepam 2 Mg/Ml Vial IVP 0.5 mg Q4H PRN Administration Anxiety Morphine Sulfate 2 mg 02/12/21 10:41 02/13/21 05:23 Morphine 2 Mg/Ml Carpuject IVP 2 mg Q1HR PRN Administration PAIN Multivitamins/Minerals 1 tab 02/08/21 09:00 02/12/21 14:15 Multivitamin W/Minerals Tablet PO Not Given DAILYWM GEORGIE Ondansetron HCl 4 mg 01/29/21 17:09 01/30/21 22:04 Ondansetron Odt 4 Mg Tablet TL 4 mg Q6HR PRN Administration Nausea / Vomiting Oxycodone HCl 5 mg 01/29/21 17:09 02/09/21 09:39 Oxycodone 5 Mg Tablet PO 5 mg Q4HR PRN Administration Pain 5 to 7 Oxymetazoline HCl 2 sprays 02/07/21 21:10 02/08/21 08:03 Oxymetazoline Hcl 100 Sprays Bottle CANDIDA 2 sprays BID PRN Administration Nasal Congestion Polyethylene Glycol 17 gm 02/01/21 09:00 02/12/21 10:28 Polyethylene Glycol 3350 17 Gm Packet PO Not Given DAILY GEORGIE Senna 8.6 - 17.2 mg 02/03/21 09:00 02/12/21 12:35 Senna 8.6 Mg Tablet PO Not Given DAILY GEORGIE Sodium Chloride 10 ml 01/29/21 17:09 02/12/21 10:52 Sodium Chloride Flush 0.9% 10 Ml Syringe IVP 10 ml PRN PRN Administration NEEDED PER PROVIDER ORDERS Sodium Chloride 10 ml 01/30/21 01:00 02/13/21 04:16 Sodium Chloride Flush 0.9% 10 Ml Syringe IVP 10 ml 0100,0900,1700 GEORGIE Administration Throat Lozenges 1 lozenge 01/30/21 02:25 01/30/21 04:54 Benzocaine/Menthol Lozenge MM 1 lozenge Q2HR PRN Administration Throat pain Trazodone HCl 50 mg 02/02/21 21:00 02/12/21 23:42 Trazodone 50 Mg Tablet PO 50 mg QPM GEORGIE Administration - Lab Result Fish Bone Diagrams: 02/13/21 04:46 02/13/21 04:46 - Additional Planning My Orders: My Active Orders 02/12/21 10:19 LORazepam INJ [Ativan Inj (Vial)] 0.5 mg IVP Q4H PRN 02/12/21 10:41 Morphine Inj (Carpuject) [Morphine (Carpuject)] 2 mg IVP Q1HR PRN 02/12/21 12:55 BIPAP [BIPAP/CPAP - RT] [RC] .q2 02/14/21 05:00 BMP - BASIC METABOLIC PANEL [CHEM] DAILYLAB CBC - COMP BLD CT W/AUTO DIFF [HEME] DAILYLAB 02/15/21 05:00 BMP - BASIC METABOLIC PANEL [CHEM] DAILYLAB CBC - COMP BLD CT W/AUTO DIFF [HEME] DAILYLAB 02/16/21 05:00 BMP - BASIC METABOLIC PANEL [CHEM] DAILYLAB CBC - COMP BLD CT W/AUTO DIFF [HEME] DAILYLAB 02/17/21 05:00 BMP - BASIC METABOLIC PANEL [CHEM] DAILYLAB CBC - COMP BLD CT W/AUTO DIFF [HEME] DAILYLAB Subjective - Subjective Patient Reports: Other (Patient's clinical status further took a turn for the worse today. Even on an FiO2 of 100% on the BiPAP his oxygen saturation was around 78%. He appeared to be in significant respiratory distress. He was somewhat altered mentally. Unable to communicate. Tachypnea, tachycardia noted.) Objective Vital Signs: Vital Signs - 24 hr 02/12/21 02/12/21 02/12/21 08:00 09:00 09:45 Temperature Heart Rate 80 Heart Rate [ 69 83 Monitoring electrodes] Respiratory 27 H 38 H Rate Blood Pressure 102/55 L 142/68 H [Left Brachial artery] O2 Saturation 96 70 L 02/12/21 02/12/21 02/12/21 10:00 11:00 11:41 Temperature Heart Rate 78 Heart Rate [ 81 70 Monitoring electrodes] Respiratory 32 H 32 H Rate Blood Pressure 109/55 L 102/58 L [Left Brachial artery] O2 Saturation 81 L 88 L 02/12/21 02/12/21 02/12/21 12:00 12:56 13:00 Temperature 37.1 C Heart Rate 66 Heart Rate [ 68 62 Monitoring electrodes] Respiratory 22 30 H Rate Blood Pressure 101/58 L 104/64 [Left Brachial artery] O2 Saturation 92 95 02/12/21 02/12/21 02/12/21 14:00 15:00 15:46 Temperature Heart Rate 68 Heart Rate [ 65 59 L Monitoring electrodes] Respiratory 26 H 23 Rate Blood Pressure 112/70 100/67 [Left Brachial artery] O2 Saturation 96 94 02/12/21 02/12/21 02/12/21 16:00 17:00 17:43 Temperature 36.4 C L Heart Rate 60 Heart Rate [ 57 L 68 Monitoring electrodes] Respiratory 24 25 H Rate Blood Pressure 91/63 95/70 [Left Brachial artery] O2 Saturation 97 96 02/12/21 02/12/21 02/12/21 18:00 19:00 19:50 Temperature 36.5 C Heart Rate 63 Heart Rate [ 63 60 Monitoring electrodes] Respiratory 26 H 25 H Rate Blood Pressure 112/68 104/64 [Left Brachial artery] O2 Saturation 93 93 02/12/21 02/12/21 02/12/21 20:00 21:00 22:00 Temperature Heart Rate Heart Rate [ 67 54 L 65 Monitoring electrodes] Respiratory 22 20 24 Rate Blood Pressure 101/65 91/58 L 139/72 H [Left Brachial artery] O2 Saturation 92 92 91 L 02/12/21 02/13/21 02/13/21 23:00 00:00 00:35 Temperature Heart Rate 65 78 Heart Rate [ 67 62 Monitoring electrodes] Respiratory 27 H 18 Rate Blood Pressure 130/75 93/62 [Left Brachial artery] O2 Saturation 93 89 L 02/13/21 02/13/21 02/13/21 01:00 02:00 03:00 Temperature Heart Rate Heart Rate [ 57 L 61 61 Monitoring electrodes] Respiratory 16 17 17 Rate Blood Pressure 89/58 L 93/58 L 99/62 [Left Brachial artery] O2 Saturation 93 93 93 02/13/21 02/13/21 02/13/21 04:00 04:13 05:00 Temperature 36.6 C Heart Rate 70 Heart Rate [ 69 70 Monitoring electrodes] Respiratory 22 24 Rate Blood Pressure 104/61 101/62 [Left Brachial artery] O2 Saturation 91 L 97 02/13/21 02/13/21 02/13/21 06:00 07:00 07:31 Temperature Heart Rate 75 Heart Rate [ 71 73 Monitoring electrodes] Respiratory 25 H 23 Rate Blood Pressure 105/62 104/57 L [Left Brachial artery] O2 Saturation 97 95 Oxygen O2 Source BIPAP Oxygen Flow Rate 2 I&O (Last 24 Hrs): Intake and Output Totals x24h 02/11/21 02/12/21 02/13/21 23:59 23:59 23:59 Intake Total 1590 1700 300 Output Total 1190 2970 310 Balance 400 -1270 -10 General: Severe distress, Other (Lethargic) HEENT: Atraumatic Neck: Supple, No JVD Neuro: Other (Encephalopathic) Cardiovascular: Other (Tachycardic) Respiratory: Other (Tachypneic, Crackles in lung bases bilaterally) Abdomen: Normal bowel sounds, Soft, No tenderness, No masses Extremities: No clubbing, No cyanosis, Other (+1 edema in right lower extremity) - Results Results: Laboratory Results WBC 14.9 x10^3/uL (4.8-10.8) H 02/13/21 04:46 RBC 3.51 10^6/uL (4.70-6.10) L 02/13/21 04:46 Hgb 11.6 g/dL (14.0-18.0) L 02/13/21 04:46 Hct 35.2 % (42.0-52.0) L 02/13/21 04:46 MCV 100.3 fL (80.0-94.0) H 02/13/21 04:46 MCH 33.0 pg (27.0-31.0) H 02/13/21 04:46 MCHC 33.0 g/dL (32.0-36.0) 02/13/21 04:46 RDW 13.1 % (12.0-15.0) 02/13/21 04:46 Plt Count 207 10^3/uL (130-450) 02/13/21 04:46 MPV 10.6 fL (7.4-11.4) 02/13/21 04:46 Neut # (Auto) 14.1 10^3/uL (1.5-6.6) H 02/13/21 04:46 Lymph # (Auto) 0.4 10^3/uL (1.5-3.5) L 02/13/21 04:46 [place] # (Auto) 0.2 10^3/uL (0.0-1.0) 02/13/21 04:46 Eos # (Auto) 0.0 10^3/uL (0.0-0.7) 02/13/21 04:46 Baso # (Auto) 0.0 10^3/uL (0.0-0.1) 02/13/21 04:46 Absolute Nucleated RBC 0.00 x10^3/uL 02/13/21 04:46 Nucleated RBC % 0.0 /100WBC 02/13/21 04:46 D-Dimer 348.8 ng/mL (200.0-255.0) H 01/29/21 16:35 Bld Gas Analysis Time 07:50 02/13/21 07:45 Sample Site RIGHT BRACHIAL 02/13/21 07:45 ABG pH 7.50 (7.35-7.45) H 02/13/21 07:45 ABG pCO2 38 mmHg (34-45) 02/13/21 07:45 ABG pO2 56 mmHg (80-100) L 02/13/21 07:45 ABG HCO3 29.0 mmol/L (22.0-26.0) H 02/13/21 07:45 ABG Total CO2 30.1 MMOL/L (21.0-29.0) H 02/13/21 07:45 ABG O2 Saturation 91 % (94-98) L 02/13/21 07:45 ABG Base Excess 5.6 mmol/L (-2.0-3.0) H 02/13/21 07:45 Choco Test NOT APPLICABLE 02/13/21 07:45 O2 Delivery Device BiPAP 02/13/21 07:45 O2 Liters/Min 40.00 LPM 02/09/21 10:31 FiO2 100.00 02/13/21 07:45 EPAP 7 cmH2O 02/13/21 07:45 IPAP 12 cmH2O 02/13/21 07:45 Sodium 133 mmol/L (135-145) L 02/13/21 04:46 Potassium 4.6 mmol/L (3.5-5.0) 02/13/21 04:46 Chloride 95 mmol/L (101-111) L 02/13/21 04:46 Carbon Dioxide 26 mmol/L (21-32) 02/13/21 04:46 Anion Gap 12.0 (6-13) 02/13/21 04:46 BUN 30 mg/dL (6-20) H 02/13/21 04:46 Creatinine 0.7 mg/dL (0.6-1.2) 02/13/21 04:46 Estimated GFR (MDRD) 109 (>89) 02/13/21 04:46 Glucose 70 mg/dL (70-100) 02/13/21 04:46 Lactic Acid 1.8 mmol/L (0.5-2.2) 01/29/21 16:35 Calcium 8.4 mg/dL (8.5-10.3) L 02/13/21 04:46 Magnesium 2.4 mg/dL (1.7-2.8) 02/08/21 08:16 Total Bilirubin 0.6 mg/dL (0.2-1.0) 01/29/21 16:35 AST 59 IU/L (10-42) H 01/29/21 16:35 ALT 27 IU/L (10-60) 01/29/21 16:35 Alkaline Phosphatase 37 IU/L (42-121) L 01/29/21 16:35 C-Reactive Protein 21.5 mg/dL (0-1.0) H 02/13/21 04:46 B-Natriuretic Peptide 314 pg/mL (5-100) H 02/09/21 04:42 Total Protein 7.2 g/dL (6.7-8.2) 01/29/21 16:35 Albumin 3.7 g/dL (3.2-5.5) 01/29/21 16:35 Globulin 3.5 g/dL (2.1-4.2) 01/29/21 16:35 Albumin/Globulin Ratio 1.1 (1.0-2.2) 01/29/21 16:35 25-OH Vitamin D Total 64 ng/mL (30-100) 02/02/21 11:19 TSH 0.46 uIU/mL (0.34-5.60) 02/08/21 08:16 Nasal Adenovirus (PCR) NOT DETECTED 01/29/21 16:43 Nasal B. parapertussis DNA (PCR) NOT DETECTED 01/29/21 16:43 Nasal Coronavir 229E PCR NOT DETECTED 01/29/21 16:43 Nasal Coronavir HKU1 PCR NOT DETECTED 01/29/21 16:43 Nasal Coronavir NL63 PCR NOT DETECTED 01/29/21 16:43 Nasal Coronavir OC43 PCR NOT DETECTED 01/29/21 16:43 Nasal Enterovir/Rhinovir PCR NOT DETECTED 01/29/21 16:43 Nasal Influenza B PCR NOT DETECTED 01/29/21 16:43 Nasal Parainfluen 1 PCR NOT DETECTED 01/29/21 16:43 Nasal Parainfluen 2 PCR NOT DETECTED 01/29/21 16:43 Nasal Parainfluen 3 PCR NOT DETECTED 01/29/21 16:43 Nasal Parainfluen 4 PCR NOT DETECTED 01/29/21 16:43 Nasal RSV (PCR) NOT DETECTED 01/29/21 16:43 Nasal Screen MRSA (PCR) NEGATIVE (NEGATIVE) 02/09/21 11:30 Nasal B.pertussis DNA PCR NOT DETECTED 01/29/21 16:43 Nasal C.pneumoniae (PCR) NOT DETECTED 01/29/21 16:43 Candida Human Metapneumo PCR NOT DETECTED 01/29/21 16:43 Nasal M.pneumoniae (PCR) NOT DETECTED 01/29/21 16:43 Nasal SARS-CoV-2 (PCR) DETECTED A 01/29/21 16:43 ABX Reporting Has patient been on IV antibiotics over the past 48 hours?: Yes
[2021-02-13] MEDS: DEXAMETHASONE 4 MG/ML VIAL IVP SCH (08:02)
[2021-02-13] MEDS: CEFEPIME 2 GM in SODIUM CHLORIDE 0.9% MINIBAG 100 ML IV SCH ×2 (08:22→20:35)
[2021-02-13] MEDS ORDERED: LIDOCAINE-MPF 1% 5 ML VIAL ONE (09:27)
[2021-02-13] MEDS ORDERED: KETAMINE 500 MG/10 ML VIAL ONE (09:27)
[2021-02-13] MEDS ORDERED: SUCCINYLCHOLINE 200 MG/10 ML VIAL ONE (09:33)
[2021-02-13] MEDS: PROPOFOL 500 MG/50 ML 500 MG/50 ML VIAL IV SCH ×4 (10:10→22:23)
--- NOTE | 2021-02-13 10:29 | XRAY Report ---
PROCEDURE: Chest for Line Placement INDICATIONS: s/p intubation TECHNIQUE: One view of the chest was acquired. COMPARISON: 02/12/2021 FINDINGS: Surgical changes and devices: Endotracheal tube tip 3.4 cm above the pauline. Nasogastric tube in the stomach. Lungs and pleura: Heart size enlarged. There is moderate vascular congestion, obscuration of both hem idiaphragms and central pulmonary infiltrates are present. Blunting of both costophrenic angles prese nt. Mediastinum: As above Bones and chest wall: No suspicious bony lesions. Overlying soft tissues appear unremarkable. IMPRESSION: Endotracheal and nasogastric tubes in good position. Cardiomegaly, moderate vascular congestion and centralized pulmonary infiltrates reflecting pulmonary edema and/or infection Bibasilar pleural effusions with atelectasis and or infiltrate. Reviewed by: Saud Olivia MD on 02/13/2021 9:27 AM [facility] Approved by: Saud Olivia MD on 02/13/2021 9:27 AM [facility] Station ID: [id number]
[2021-02-13] MEDS: MULTIVITAMIN W/MINERALS TABLET PO SCH (10:36)
[2021-02-13] MEDS: APIXABAN 5 MG TABLET PO SCH ×2 (10:37→19:56)
[2021-02-13] MEDS: polyethylene glycoL 3350 17 GM PACKET PO SCH (10:37)
[2021-02-13] MEDS: DOCUSATE SODIUM 250 MG CAPSULE PO SCH (10:37)
[2021-02-13] MEDS: CHOLECALCIFEROL 25 MCG TABLET PO SCH (10:37)
[2021-02-13] MEDS: SENNA 8.6 MG TABLET PO SCH (10:38)
[2021-02-13] MEDS: PANTOPRAZOLE 40 MG VIAL IVP SCH (12:34)
[2021-02-13 12:44] LABS: ABG BASE EXCESS 5.2 mmol/L (-2.0-3.0); ABG HCO3 29.2 mmol/L (22.0-26.0); ABG OXYGEN SATURATION 92 % (94-98); ABG PCO2 41 mmHg (34-45); ABG PH 7.47 (7.35-7.45); ABG PO2 62 mmHg (80-100); ABG TCO2 30.5 MMOL/L (21.0-29.0); ALLEN TEST POSITIVE
[2021-02-13 12:45] LABS: ABG MODE OF VENTILATION AC/VC; ABG RESPIRATORY RATE 20 b/min
[2021-02-13] MEDS ORDERED: SODIUM CHLORIDE INHALATION 3 ML NEB ONE (13:32)
--- NOTE | 2021-02-13 14:03 | ANESTHESIA PROCEDURE NOTE ---
Anesth Central Line Template - Central Line Central Line Preparation: Unable to obtain consent, Time out completed, Ultra sound used, Sterile prep and drape Central line location: Right IJ Central line type: Triple lumen Central line catheter tip site resides: Superior vena cava (SVC) Central line aftercare: Chlorhexidine disc placed, Secured, Placement confirmed, No pneumothorax, No complications, Bundle checklist complete, Pt tolerated well Other Info/Details: 20cm cath sutured at 18
--- NOTE | 2021-02-13 14:21 | XRAY Report ---
PROCEDURE: Chest for Line Placement INDICATIONS: central line TECHNIQUE: One view of the chest was acquired. COMPARISON: Chest x-ray 02/13/2021 FINDINGS: Surgical changes and devices: Right-sided central venous catheter is present with distal tip projecti ng over the proximal SVC. Endotracheal tube is present at the pauline. Nasogastric tube projects below the left hemidiaphragm. Lungs and pleura: Unchanged appearance of diffuse bilateral pulmonary opacities. No pneumothorax. Mediastinum: Mediastinal contours appear normal. Heart size is enlarged. Bones and chest wall: No suspicious bony lesions. Overlying soft tissues appear unremarkable. IMPRESSION: Support lines as above. Diffuse pulmonary opacities most consistent with pneumonia. Reviewed by: Lori James MD on 02/13/2021 2:20 PM PDT Approved by: Lori James MD on 02/13/2021 2:20 PM PDT Station ID: [id number]
[2021-02-13] MEDS: FUROSEMIDE 40 MG/4 ML VIAL IVP SCH (15:01)
[2021-02-13 15:23] LABS: ABG HCO3 30.8 mmol/L (22.0-26.0); ABG PCO2 47 mmHg (34-45); ABG PH 7.44 (7.35-7.45); ABG PO2 64 mmHg (80-100); ABG TCO2 32.2 MMOL/L (21.0-29.0)
[2021-02-13 15:24] LABS: ABG BASE EXCESS 5.8 mmol/L (-2.0-3.0); ABG MODE OF VENTILATION ASSIST/CONTROL; ABG OXYGEN SATURATION 93 % (94-98); ABG RESPIRATORY RATE 20 b/min
[2021-02-13] MEDS: traZODone 50 MG TABLET PO SCH (19:56)
[2021-02-13] MEDS: CHLORHEXIDINE GLUCONATE 15 ML UDC PO SCH (20:36)
[2021-02-13] MEDS: ENOXAPARIN 80 MG/0.8 ML SYRINGE SUBQ SCH (20:37)
[2021-02-13] MEDS: SODIUM CHLORIDE FLUSH 0.9% 10 ML SYRINGE IVP PRN (20:38)
[2021-02-14] MEDS: MORPHINE 2 MG/ML CARPUJECT IVP PRN ×4 (00:14→21:29)
[2021-02-14] MEDS: LORazepam 2 MG/ML VIAL IVP PRN ×2 (01:30→16:31)
[2021-02-14] MEDS: SODIUM CHLORIDE FLUSH 0.9% 10 ML SYRINGE IVP SCH ×3 (01:31→16:34)
[2021-02-14] MEDS: PROPOFOL 500 MG/50 ML 500 MG/50 ML VIAL IV SCH ×7 (02:14→23:05)
[2021-02-14] MEDS: LINEZOLID 600 MG/300 ML 600 MG/300 ML BAG IV SCH ×2 (02:17→14:53)
[2021-02-14] MEDS: FUROSEMIDE 40 MG/4 ML VIAL IVP SCH ×2 (05:44→14:53)
[2021-02-14] MEDS: SODIUM CHLORIDE FLUSH 0.9% 10 ML SYRINGE IVP PRN (05:57)
[2021-02-14 05:59] LABS: BASOPHILS % (AUTO) 0.1 %; HCT - HEMATOCRIT 31.8 % (42.0-52.0); HGB - HEMOGLOBIN 10.9 g/dL (14.0-18.0); LYMPHOCYTES # (AUTO) 0.3 10^3/uL (1.5-3.5); LYMPHOCYTES % (AUTO) 2.4 %; MEAN CORPUSCULAR HEMOGLOBIN 33.3 pg (27.0-31.0); MEAN CORPUSCULAR HGB CONC 34.3 g/dL (32.0-36.0); MEAN CORPUSCULAR VOLUME 97.2 fL (80.0-94.0); MEAN PLATELET VOLUME 10.3 fL (7.4-11.4); MONOCYTES # (AUTO) 0.3 10^3/uL (0.0-1.0); MONOCYTES % (AUTO) 2.4 %; NEUTROPHILS # (AUTO) 12.7 10^3/uL (1.5-6.6); NEUTROPHILS % (AUTO) 94.4 %; PLT - PLATELET COUNT 226 10^3/uL (130-450); RED BLOOD COUNT 3.27 10^6/uL (4.70-6.10); RED CELL DISTRIBUTION WIDTH 12.8 % (12.0-15.0); WHITE BLOOD COUNT 13.4 x10^3/uL (4.8-10.8)
[2021-02-14 06:10] LABS: CALCIUM 8.2 mg/dL (8.5-10.3); CREATININE 0.9 mg/dL (0.6-1.2); POTASSIUM 3.9 mmol/L (3.5-5.0)
[2021-02-14 08:18] LABS: ABG BASE EXCESS 4.6 mmol/L (-2.0-3.0); ABG HCO3 29.5 mmol/L (22.0-26.0); ABG OXYGEN SATURATION 98 % (94-98); ABG PCO2 45 mmHg (34-45); ABG PH 7.44 (7.35-7.45); ABG PO2 128 mmHg (80-100); ABG TCO2 30.8 MMOL/L (21.0-29.0)
[2021-02-14 08:19] LABS: ABG MODE OF VENTILATION ASSIST/CONTROL; ABG RESPIRATORY RATE 20 b/min
[2021-02-14] MEDS: MULTIVITAMIN W/MINERALS TABLET PO SCH (09:49)
[2021-02-14] MEDS: APIXABAN 5 MG TABLET PO SCH (09:49)
[2021-02-14] MEDS: CHOLECALCIFEROL 25 MCG TABLET PO SCH (09:50)
[2021-02-14] MEDS: DEXAMETHASONE 4 MG/ML VIAL IVP SCH (09:50)
[2021-02-14] MEDS: DOCUSATE SODIUM 250 MG CAPSULE PO SCH (09:50)
[2021-02-14] MEDS: CHLORHEXIDINE GLUCONATE 15 ML UDC PO SCH ×2 (09:50→20:20)
[2021-02-14] MEDS: ENOXAPARIN 80 MG/0.8 ML SYRINGE SUBQ SCH ×2 (09:51→20:20)
[2021-02-14] MEDS: SENNA 8.6 MG TABLET PO SCH (09:51)
[2021-02-14] MEDS: polyethylene glycoL 3350 17 GM PACKET PO SCH (09:51)
[2021-02-14] MEDS: PANTOPRAZOLE 40 MG VIAL IVP SCH (10:25)
[2021-02-14] MEDS: CEFEPIME 2 GM in SODIUM CHLORIDE 0.9% MINIBAG 100 ML IV SCH ×2 (10:25→21:29)
--- NOTE | 2021-02-14 13:59 | XRAY Report ---
PROCEDURE: Chest 1 View X-Ray INDICATIONS: Hypoxia, Covid TECHNIQUE: One view of the chest was acquired. COMPARISON: 02/13/2021 at 1335 hours. FINDINGS: Surgical changes and devices: Tubes and catheters are in stable in expected positions. Lungs and pleura: No pleural effusions or pneumothorax. Severe multifocal patchy bilateral airspace opacity is unchanged. Mediastinum: Mediastinal contours appear normal. Heart size is normal. Bones and chest wall: No suspicious bony lesions. Overlying soft tissues appear unremarkable. IMPRESSION: No change in severe bilateral pneumonia. Reviewed by: Norma Herrera MD on 02/14/2021 1:58 PM PDT Approved by: Norma Herrera MD on 02/14/2021 1:58 PM PDT Station ID: [id number]
--- NOTE | 2021-02-14 14:45 | PROVIDER PROGRESS NOTE ---
Assessment/Plan - Problem List (1) Pneumonia due to COVID-19 virus Assessment/Plan: Patient with respiratory failure secondary to COVID-19 pneumonia with increasing oxygen demand eventually leading to mechanical ventilation on BiPAP followed by intubation yesterday, 02/13/2021 ABGs showing significant improvement in oxygenation FiO2 decreased from 100% to 80% today without drops in oxygen saturation Continue supportive measures with ventilation and weaning as able Continue dexamethasone 6 mg IV daily Check CRP level in the a.m. to 8 AM guidance of dexamethasone (2) Acute respiratory failure with hypoxia Assessment/Plan: As above, respiratory failure secondary to Covid pneumonia with possible healthcare associated pneumonia in addition Chest x-ray findings are somewhat nonspecific Has been on appropriate antibiotic therapy for several days including linezolid and vancomycin Suspect that if this were primarily bacterial pneumonia, should improve by now and chest x-ray does not show resolution Follow-up CRP level, vent settings, oxygen saturation, and de-escalate antibiotic therapy if not worsening, followed by close observation and reinitiat ion if otherwise clinically indicated (3) HCAP (healthcare-associated pneumonia) Assessment/Plan: Rate controlled Continue anticoagulation with Lovenox until clinically improved then resume home Eliquis - Current Meds Current Meds: Current Medications Generic Name Dose Route Start Last Admin Trade Name Freq PRN Reason Stop Dose Admin Acetaminophen 650 mg 01/29/21 17:09 02/09/21 08:28 Acetaminophen 325 Mg Tablet PO 650 mg Q4HR PRN Administration Pain 1 to 4 Albuterol 2 puffs 01/30/21 08:37 02/10/21 12:04 Albuterol 1 Puff INH 2 puffs Q4HR PRN Administration Wheezing Chlorhexidine Gluconate 15 ml 02/13/21 21:00 02/14/21 09:50 Chlorhexidine Gluconate 15 Ml Udc PO 15 ml BID GEORGIE Administration Dexamethasone 6 mg 02/10/21 09:00 02/14/21 09:50 Dexamethasone 4 Mg/Ml Vial IVP 6 mg DAILY GEORGIE Administration Enoxaparin Sodium 80 mg 02/13/21 21:00 02/14/21 09:51 Enoxaparin 80 Mg/0.8 Ml Syringe SUBQ 80 mg BID GEORGIE Administration Furosemide 40 mg 02/13/21 14:00 02/14/21 05:44 Furosemide 40 Mg/4 Ml Vial IVP 02/15/21 14:01 40 mg BIDDIURETIC GEORGIE Administration Linezolid 600 mg in 300 mls @ 300 mls/hr 02/09/21 15:00 02/14/21 04:24 Zyvox 600 Mg/300 Ml IV Infused Q12H GEORGIE Infusion Propofol 500 mg in 50 mls @ 4.74 mls/hr 02/13/21 10:00 02/14/21 13:27 Diprivan IV 25.11 mcg/kg/min .[id number] GEORGIE 11.9 mls/hr Administration Protocol 10 MCG/KG/MIN Norepinephrine Bitartrate 8 mg 250 mls @ 15 mls/hr 02/13/21 13:00 02/14/21 12:00 / Dextrose IV 4 mcg/min .[id number] GEORGIE 7.5 mls/hr Titration Protocol 8 MCG/MIN Lidocaine 1 patch 02/06/21 15:29 02/10/21 19:17 Lidocaine Patch 5% TOP 1 patch DAILY PRN Administration PAIN Lorazepam 0.5 mg 02/11/21 10:33 02/12/21 08:35 Lorazepam 0.5 Mg Tablet PO 0.5 mg Q6H PRN Administration Anxiety Lorazepam 0.5 mg 02/12/21 10:19 02/14/21 01:30 Lorazepam 2 Mg/Ml Vial IVP 0.5 mg Q4H PRN Administration Anxiety Morphine Sulfate 2 mg 02/12/21 10:41 02/14/21 05:32 Morphine 2 Mg/Ml Carpuject IVP 2 mg Q1HR PRN Administration PAIN Ondansetron HCl 4 mg 01/29/21 17:09 01/30/21 22:04 Ondansetron Odt 4 Mg Tablet TL 4 mg Q6HR PRN Administration Nausea / Vomiting Oxycodone HCl 5 mg 01/29/21 17:09 02/09/21 09:39 Oxycodone 5 Mg Tablet PO 5 mg Q4HR PRN Administration Pain 5 to 7 Oxymetazoline HCl 2 sprays 02/07/21 21:10 02/08/21 08:03 Oxymetazoline Hcl 100 Sprays Bottle CANDIDA 2 sprays BID PRN Administration Nasal Congestion Pantoprazole Sodium 40 mg 02/13/21 12:00 02/14/21 10:25 Pantoprazole 40 Mg Vial IVP 40 mg DAILY GEORGIE Administration Polyethylene Glycol 17 gm 02/01/21 09:00 02/14/21 09:51 Polyethylene Glycol 3350 17 Gm Packet PO 17 gm DAILY GEORGIE Administration Sodium Chloride 10 ml 01/29/21 17:09 02/14/21 05:57 Sodium Chloride Flush 0.9% 10 Ml Syringe IVP 10 ml PRN PRN Administration NEEDED PER PROVIDER ORDERS Sodium Chloride 10 ml 01/30/21 01:00 02/14/21 09:51 Sodium Chloride Flush 0.9% 10 Ml Syringe IVP 10 ml 0100,0900,1700 GEORGIE Administration Throat Lozenges 1 lozenge 01/30/21 02:25 01/30/21 04:54 Benzocaine/Menthol Lozenge MM 1 lozenge Q2HR PRN Administration Throat pain - Lab Result Fish Bone Diagrams: 02/14/21 05:41 02/14/21 05:41 - Additional Planning My Orders: My Active Orders 02/14/21 11:10 NPO [DIET] 02/14/21 14:07 Daily Weight [RC] DAILY IO [RC] QSHIFT Tube Feeding [RC] QSHIFT 02/15/21 05:00 COMPREHENSIVE METABOLIC PANEL [CHEM] Timed CRP - C-REACTIVE PROTEIN [CHEM] DAILYLAB MAGNESIUM [CHEM] Timed PHOSPHORUS [CHEM] Timed PREALBUMIN [CHEM] Timed 02/16/21 05:00 CRP - C-REACTIVE PROTEIN [CHEM] DAILYLAB 02/17/21 05:00 COMPREHENSIVE METABOLIC PANEL [CHEM] Timed CRP - C-REACTIVE PROTEIN [CHEM] DAILYLAB MAGNESIUM [CHEM] Timed PHOSPHORUS [CHEM] Timed PREALBUMIN [CHEM] Timed 02/20/21 05:00 COMPREHENSIVE METABOLIC PANEL [CHEM] Timed MAGNESIUM [CHEM] Timed PHOSPHORUS [CHEM] Timed PREALBUMIN [CHEM] Timed Plan Discussed with:: Family, Power of Dietary Cook Time Spent: 15-30 minutes Subjective - Subjective Patient Reports: Other (Chemically sedated and intubated, unable to provide subjective report) Objective Vital Signs: Vital Signs - 24 hr 02/13/21 02/13/21 02/13/21 15:00 15:15 15:30 Temperature Heart Rate Heart Rate [ 70 65 62 Monitoring electrodes] Respiratory 22 Rate Blood Pressure 102/66 134/93 H 127/81 H [Left Brachial artery] O2 Saturation 95 95 98 02/13/21 02/13/21 02/13/21 16:00 17:00 18:00 Temperature Heart Rate Heart Rate [ 60 75 66 Monitoring electrodes] Respiratory 19 18 19 Rate Blood Pressure 122/83 H 113/76 130/85 H [Left Brachial artery] O2 Saturation 97 97 98 02/13/21 02/13/21 02/13/21 18:08 19:00 20:00 Temperature 36.6 C Heart Rate 62 Heart Rate [ 57 L 61 Monitoring electrodes] Respiratory 18 21 Rate Blood Pressure 124/73 127/74 [Left Brachial artery] O2 Saturation 98 98 02/13/21 02/13/21 02/13/21 20:09 21:00 22:00 Temperature Heart Rate 57 L Heart Rate [ 71 62 Monitoring electrodes] Respiratory 21 20 Rate Blood Pressure 144/92 H 138/81 H [Left Brachial artery] O2 Saturation 96 96 02/13/21 02/13/21 02/14/21 22:25 23:00 00:00 Temperature Heart Rate 67 Heart Rate [ 68 63 Monitoring electrodes] Respiratory 22 19 Rate Blood Pressure 140/81 H 128/82 H [Left Brachial artery] O2 Saturation 96 95 02/14/21 02/14/21 02/14/21 00:15 00:17 01:00 Temperature Heart Rate 65 Heart Rate [ 65 64 Monitoring electrodes] Respiratory 22 Rate Blood Pressure 114/80 114/67 [Left Brachial artery] O2 Saturation 94 02/14/21 02/14/21 02/14/21 02:00 03:00 04:00 Temperature Heart Rate Heart Rate [ 68 56 L 54 L Monitoring electrodes] Respiratory 24 20 20 Rate Blood Pressure 109/65 114/75 109/76 [Left Brachial artery] O2 Saturation 97 98 97 02/14/21 02/14/21 02/14/21 04:33 05:00 06:00 Temperature 37.1 C Heart Rate 65 Heart Rate [ 60 66 Monitoring electrodes] Respiratory 20 22 Rate Blood Pressure 111/74 130/74 [Left Brachial artery] O2 Saturation 95 98 02/14/21 02/14/21 02/14/21 07:00 08:00 08:15 Temperature Heart Rate 76 Heart Rate [ 65 65 Monitoring electrodes] Respiratory 21 21 Rate Blood Pressure 109/73 116/75 [Left Brachial artery] O2 Saturation 97 98 02/14/21 02/14/21 02/14/21 09:00 10:00 11:00 Temperature 36.8 C Heart Rate Heart Rate [ 62 65 65 Monitoring electrodes] Respiratory 20 20 20 Rate Blood Pressure 105/72 93/62 127/82 H [Left Brachial artery] O2 Saturation 96 97 95 02/14/21 02/14/21 02/14/21 11:31 12:00 13:00 Temperature 36.6 C Heart Rate 74 Heart Rate [ 68 78 Monitoring electrodes] Respiratory 22 20 Rate Blood Pressure 122/75 113/83 H [Left Brachial artery] O2 Saturation 90 L 90 L 02/14/21 13:58 Temperature Heart Rate 79 Heart Rate [ Monitoring electrodes] Respiratory Rate Blood Pressure [Left Brachial artery] O2 Saturation Oxygen O2 Source Mechanical ventilator Oxygen Flow Rate 2 I&O (Last 24 Hrs): Intake and Output Totals x24h 02/12/21 02/13/21 02/14/21 23:59 23:59 23:59 Intake Total 1700 957.168 871.813 Output Total 2970 2510 2024 Balance -1270 -1552.832 -1153.187 General: Other (Chemically sedated, appears comfortable) Neck: No JVD, No thyromegaly Neuro: Other Cardiovascular: Regular rate, Normal S1, Normal S2 Abdomen: Normal bowel sounds, Soft, No tenderness, No hepatospenomegaly Extremities: No clubbing, No cyanosis, No tenderness/swelling Skin: No rashes - Results Results: Laboratory Results WBC 13.4 x10^3/uL (4.8-10.8) H 02/14/21 05:41 RBC 3.27 10^6/uL (4.70-6.10) L 02/14/21 05:41 Hgb 10.9 g/dL (14.0-18.0) L 02/14/21 05:41 Hct 31.8 % (42.0-52.0) L 02/14/21 05:41 MCV 97.2 fL (80.0-94.0) H 02/14/21 05:41 MCH 33.3 pg (27.0-31.0) H 02/14/21 05:41 MCHC 34.3 g/dL (32.0-36.0) 02/14/21 05:41 RDW 12.8 % (12.0-15.0) 02/14/21 05:41 Plt Count 226 10^3/uL (130-450) 02/14/21 05:41 MPV 10.3 fL (7.4-11.4) 02/14/21 05:41 Neut # (Auto) 12.7 10^3/uL (1.5-6.6) H 02/14/21 05:41 Lymph # (Auto) 0.3 10^3/uL (1.5-3.5) L 02/14/21 05:41 [place] # (Auto) 0.3 10^3/uL (0.0-1.0) 02/14/21 05:41 Eos # (Auto) 0.0 10^3/uL (0.0-0.7) 02/14/21 05:41 Baso # (Auto) 0.0 10^3/uL (0.0-0.1) 02/14/21 05:41 Absolute Nucleated RBC 0.00 x10^3/uL 02/14/21 05:41 Nucleated RBC % 0.0 /100WBC 02/14/21 05:41 D-Dimer 348.8 ng/mL (200.0-255.0) H 01/29/21 16:35 Bld Gas Analysis Time 0817 02/14/21 08:10 Sample Site RIGHT BRACHIAL 02/14/21 08:10 Patient Temperature Cancelled 02/12/21 11:15 ABG pH 7.44 (7.35-7.45) 02/14/21 08:10 ABG pCO2 45 mmHg (34-45) 02/14/21 08:10 ABG pO2 128 mmHg (80-100) H 02/14/21 08:10 ABG HCO3 29.5 mmol/L (22.0-26.0) H 02/14/21 08:10 ABG Total CO2 30.8 MMOL/L (21.0-29.0) H 02/14/21 08:10 ABG O2 Saturation 98 % (94-98) 02/14/21 08:10 ABG Oximetry Spot Check Cancelled 02/12/21 11:15 ABG Base Excess 4.6 mmol/L (-2.0-3.0) H 02/14/21 08:10 Choco Test NOT APPLICABLE 02/14/21 08:10 Respiration Rate 20 b/min 02/14/21 08:10 Room Air Cancelled 02/12/21 11:15 O2 Delivery Device VENTILATOR 02/14/21 08:10 O2 Liters/Min Cancelled 02/12/21 11:15 Vent Mode ASSIST/CONTROL 02/14/21 08:10 FiO2 80.00 02/14/21 08:10 Tidal Volume 450 mL 02/14/21 08:10 PEEP 10 cmH2O 02/14/21 08:10 Pressure Support Vent Cancelled 02/12/21 11:15 EPAP 7 cmH2O 02/13/21 07:45 IPAP 12 cmH2O 02/13/21 07:45 Sodium 134 mmol/L (135-145) L 02/14/21 05:41 Potassium 3.9 mmol/L (3.5-5.0) 02/14/21 05:41 Chloride 94 mmol/L (101-111) L 02/14/21 05:41 Carbon Dioxide 28 mmol/L (21-32) 02/14/21 05:41 Anion Gap 12.0 (6-13) 02/14/21 05:41 BUN 36 mg/dL (6-20) H 02/14/21 05:41 Creatinine 0.9 mg/dL (0.6-1.2) 02/14/21 05:41 Estimated GFR (MDRD) 81 (>89) L 02/14/21 05:41 Glucose 137 mg/dL (70-100) H 02/14/21 05:41 Lactic Acid 1.8 mmol/L (0.5-2.2) 01/29/21 16:35 Calcium 8.2 mg/dL (8.5-10.3) L 02/14/21 05:41 Magnesium 2.4 mg/dL (1.7-2.8) 02/08/21 08:16 Total Bilirubin 0.6 mg/dL (0.2-1.0) 01/29/21 16:35 AST 59 IU/L (10-42) H 01/29/21 16:35 ALT 27 IU/L (10-60) 01/29/21 16:35 Alkaline Phosphatase 37 IU/L (42-121) L 01/29/21 16:35 C-Reactive Protein 21.5 mg/dL (0-1.0) H 02/13/21 04:46 B-Natriuretic Peptide 314 pg/mL (5-100) H 02/09/21 04:42 Total Protein 7.2 g/dL (6.7-8.2) 01/29/21 16:35 Albumin 3.7 g/dL (3.2-5.5) 01/29/21 16:35 Globulin 3.5 g/dL (2.1-4.2) 01/29/21 16:35 Albumin/Globulin Ratio 1.1 (1.0-2.2) 01/29/21 16:35 25-OH Vitamin D Total 64 ng/mL (30-100) 02/02/21 11:19 TSH 0.46 uIU/mL (0.34-5.60) 02/08/21 08:16 Nasal Adenovirus (PCR) NOT DETECTED 01/29/21 16:43 Nasal B. parapertussis DNA (PCR) NOT DETECTED 01/29/21 16:43 Nasal Coronavir 229E PCR NOT DETECTED 01/29/21 16:43 Nasal Coronavir HKU1 PCR NOT DETECTED 01/29/21 16:43 Nasal Coronavir NL63 PCR NOT DETECTED 01/29/21 16:43 Nasal Coronavir OC43 PCR NOT DETECTED 01/29/21 16:43 Nasal Enterovir/Rhinovir PCR NOT DETECTED 01/29/21 16:43 Nasal Influenza B PCR NOT DETECTED 01/29/21 16:43 Nasal Parainfluen 1 PCR NOT DETECTED 01/29/21 16:43 Nasal Parainfluen 2 PCR NOT DETECTED 01/29/21 16:43 Nasal Parainfluen 3 PCR NOT DETECTED 01/29/21 16:43 Nasal Parainfluen 4 PCR NOT DETECTED 01/29/21 16:43 Nasal RSV (PCR) NOT DETECTED 01/29/21 16:43 Nasal Screen MRSA (PCR) NEGATIVE (NEGATIVE) 02/09/21 11:30 Nasal B.pertussis DNA PCR NOT DETECTED 01/29/21 16:43 Nasal C.pneumoniae (PCR) NOT DETECTED 01/29/21 16:43 Candida Human Metapneumo PCR NOT DETECTED 01/29/21 16:43 Nasal M.pneumoniae (PCR) NOT DETECTED 01/29/21 16:43 Nasal SARS-CoV-2 (PCR) DETECTED A 01/29/21 16:43 ABX Reporting Has patient been on IV antibiotics over the past 48 hours?: Yes Current Medications - Current Medications Current Medications: Current Medications Generic Name Dose Route Start Last Admin Trade Name Freq PRN Reason Stop Dose Admin Acetaminophen 650 mg 01/29/21 17:09 02/09/21 08:28 Acetaminophen 325 Mg Tablet PO 650 mg Q4HR PRN Administration Pain 1 to 4 Albuterol 2 puffs 01/30/21 08:37 02/10/21 12:04 Albuterol 1 Puff INH 2 puffs Q4HR PRN Administration Wheezing Chlorhexidine Gluconate 15 ml 02/13/21 21:00 02/14/21 09:50 Chlorhexidine Gluconate 15 Ml Udc PO 15 ml BID GEORGIE Administration Dexamethasone 6 mg 02/10/21 09:00 02/14/21 09:50 Dexamethasone 4 Mg/Ml Vial IVP 6 mg DAILY GEORGIE Administration Enoxaparin Sodium 80 mg 02/13/21 21:00 02/14/21 09:51 Enoxaparin 80 Mg/0.8 Ml Syringe SUBQ 80 mg BID GEORGIE Administration Furosemide 40 mg 02/13/21 14:00 02/14/21 05:44 Furosemide 40 Mg/4 Ml Vial IVP 02/15/21 14:01 40 mg BIDDIURETIC GEORGIE Administration Linezolid 600 mg in 300 mls @ 300 mls/hr 02/09/21 15:00 02/14/21 04:24 Zyvox 600 Mg/300 Ml IV Infused Q12H GEORGIE Infusion Propofol 500 mg in 50 mls @ 4.74 mls/hr 02/13/21 10:00 02/14/21 13:27 Diprivan IV 25.11 mcg/kg/min .[id number] GEORGIE 11.9 mls/hr Administration Protocol 10 MCG/KG/MIN Norepinephrine Bitartrate 8 mg 250 mls @ 15 mls/hr 02/13/21 13:00 02/14/21 12:00 / Dextrose IV 4 mcg/min .[id number] GEORGIE 7.5 mls/hr Titration Protocol 8 MCG/MIN Lidocaine 1 patch 02/06/21 15:29 02/10/21 19:17 Lidocaine Patch 5% TOP 1 patch DAILY PRN Administration PAIN Lorazepam 0.5 mg 02/11/21 10:33 02/12/21 08:35 Lorazepam 0.5 Mg Tablet PO 0.5 mg Q6H PRN Administration Anxiety Lorazepam 0.5 mg 02/12/21 10:19 02/14/21 01:30 Lorazepam 2 Mg/Ml Vial IVP 0.5 mg Q4H PRN Administration Anxiety Morphine Sulfate 2 mg 02/12/21 10:41 02/14/21 05:32 Morphine 2 Mg/Ml Carpuject IVP 2 mg Q1HR PRN Administration PAIN Ondansetron HCl 4 mg 01/29/21 17:09 01/30/21 22:04 Ondansetron Odt 4 Mg Tablet TL 4 mg Q6HR PRN Administration Nausea / Vomiting Oxycodone HCl 5 mg 01/29/21 17:09 02/09/21 09:39 Oxycodone 5 Mg Tablet PO 5 mg Q4HR PRN Administration Pain 5 to 7 Oxymetazoline HCl 2 sprays 02/07/21 21:10 02/08/21 08:03 Oxymetazoline Hcl 100 Sprays Bottle CANDIDA 2 sprays BID PRN Administration Nasal Congestion Pantoprazole Sodium 40 mg 02/13/21 12:00 02/14/21 10:25 Pantoprazole 40 Mg Vial IVP 40 mg DAILY GEORGIE Administration Polyethylene Glycol 17 gm 02/01/21 09:00 02/14/21 09:51 Polyethylene Glycol 3350 17 Gm Packet PO 17 gm DAILY GEORGIE Administration Sodium Chloride 10 ml 01/29/21 17:09 02/14/21 05:57 Sodium Chloride Flush 0.9% 10 Ml Syringe IVP 10 ml PRN PRN Administration NEEDED PER PROVIDER ORDERS Sodium Chloride 10 ml 01/30/21 01:00 02/14/21 09:51 Sodium Chloride Flush 0.9% 10 Ml Syringe IVP 10 ml 0100,0900,1700 GEORGIE Administration Throat Lozenges 1 lozenge 01/30/21 02:25 01/30/21 04:54 Benzocaine/Menthol Lozenge MM 1 lozenge Q2HR PRN Administration Throat pain
[2021-02-15] MEDS: PROPOFOL 500 MG/50 ML 500 MG/50 ML VIAL IV SCH ×9 (01:45→23:57)
[2021-02-15] MEDS: SODIUM CHLORIDE FLUSH 0.9% 10 ML SYRINGE IVP SCH ×4 (01:47→20:54)
[2021-02-15] MEDS: LINEZOLID 600 MG/300 ML 600 MG/300 ML BAG IV SCH ×2 (03:15→15:56)
[2021-02-15 05:32] LABS: BASOPHILS % (AUTO) 0.1 %; EOSINOPHILS % (AUTO) 0.1 %; HGB - HEMOGLOBIN 10.6 g/dL (14.0-18.0); LYMPHOCYTES # (AUTO) 0.4 10^3/uL (1.5-3.5); LYMPHOCYTES % (AUTO) 3.3 %; MEAN CORPUSCULAR HGB CONC 34.2 g/dL (32.0-36.0); MEAN CORPUSCULAR VOLUME 96.6 fL (80.0-94.0); MEAN PLATELET VOLUME 9.9 fL (7.4-11.4); MONOCYTES # (AUTO) 0.3 10^3/uL (0.0-1.0); MONOCYTES % (AUTO) 2.1 %; NEUTROPHILS # (AUTO) 10.9 10^3/uL (1.5-6.6); NEUTROPHILS % (AUTO) 93.7 %; NRBC ABSOLUTE COUNT (AUTO) 0.02 x10^3/uL; NUCLEATED RED BLOOD CELLS AUTO 0.2 /100WBC; PLT - PLATELET COUNT 212 10^3/uL (130-450); RED BLOOD COUNT 3.21 10^6/uL (4.70-6.10); RED CELL DISTRIBUTION WIDTH 12.9 % (12.0-15.0); WHITE BLOOD COUNT 11.7 x10^3/uL (4.8-10.8)
[2021-02-15 06:04] LABS: ALBUMIN/GLOBULIN RATIO 0.5 (1.0-2.2); BILIRUBIN,TOTAL 1.8 mg/dL (0.2-1.0); CALCIUM 7.9 mg/dL (8.5-10.3); CREATININE 0.8 mg/dL (0.6-1.2); CRP - C-REACTIVE PROTEIN 23.1 mg/dL (0-1.0); MAGNESIUM 2.4 mg/dL (1.7-2.8); PHOSPHORUS 2.8 mg/dL (2.5-4.6); POTASSIUM 3.5 mmol/L (3.5-5.0); TOTAL PROTEIN 5.8 g/dL (6.7-8.2)
[2021-02-15] MEDS: FUROSEMIDE 40 MG/4 ML VIAL IVP SCH ×2 (06:12→15:41)
[2021-02-15 06:37] LABS: ABG BASE EXCESS 8.1 mmol/L (-2.0-3.0); ABG HCO3 32.1 mmol/L (22.0-26.0); ABG OXYGEN SATURATION 88 % (94-98); ABG PCO2 42 mmHg (34-45); ABG TCO2 33.4 MMOL/L (21.0-29.0); ALLEN TEST POSITIVE
[2021-02-15 06:39] LABS: ABG MODE OF VENTILATION ASSIST/CONTROL; ABG PO2 52 mmHg (80-100); ABG RESPIRATORY RATE 20 b/min
[2021-02-15] MEDS: CEFEPIME 2 GM in SODIUM CHLORIDE 0.9% MINIBAG 100 ML IV SCH ×2 (09:49→20:52)
[2021-02-15] MEDS: ENOXAPARIN 80 MG/0.8 ML SYRINGE SUBQ SCH ×2 (09:50→20:52)
[2021-02-15] MEDS: DEXAMETHASONE 4 MG/ML VIAL IVP SCH (09:53)
[2021-02-15] MEDS: PANTOPRAZOLE 40 MG VIAL IVP SCH (09:54)
[2021-02-15] MEDS: CHLORHEXIDINE GLUCONATE 15 ML UDC PO SCH ×2 (09:55→20:52)
--- NOTE | 2021-02-15 11:21 | XRAY Report ---
PROCEDURE: Chest 1 View X-Ray INDICATIONS: Intubation, right upper lobe crackles TECHNIQUE: One view of the chest was acquired. COMPARISON: 02/14/2021 FINDINGS: Patient rotation limits evaluation. Endotracheal tube terminates within the thoracic trachea approximately-4 above the pauline. Right IJ central line is in unchanged and appropriate position. Endotracheal tube is in unchanged and appropriate position. Consolidation in the right lung base has worsened, with denser appearance and new air bronchograms. O therwise bilateral interstitial and airspace opacities in both lungs have not significantly changed c hange. No evidence of pneumothorax or pleural effusion. IMPRESSION: Support devices are in unchanged and appropriate position. Airspace disease in the left lung base is worse, now with dense consolidation otherwise similar bilat eral airspace disease. Reviewed by: Terry Guillermo MD on 02/15/2021 11:19 AM PDT Approved by: Terry Guillermo MD on 02/15/2021 11:19 AM PDT Station ID: [id number]
[2021-02-15] MEDS: polyethylene glycoL 3350 17 GM PACKET PO SCH (12:51)
[2021-02-15] MEDS: levoFLOXacin 500 MG/100 ML 500 MG/100 ML BAG IV SCH (17:32)
--- NOTE | 2021-02-15 18:35 | PROVIDER PROGRESS NOTE ---
Assessment/Plan - Problem List (1) Pneumonia due to COVID-19 virus Assessment/Plan: Patient with respiratory failure secondary to COVID-19 pneumonia with increasing oxygen demand eventually leading to mechanical ventilation on BiPAP followed by intubation yesterday, 02/13/2021 ABG today showed decrease in oxygenation down to 52 Chest x-ray was repeated showing worsening of pneumonia with left lower lobe con solidation Suspect this is multifactorial with both Covid and bilateral bacterial pneumonia playing a role CRP trended up slightly today Expanded antibiotic coverage as below Continue dexamethasone 6 mg IV dailyBut given concern for bacterial pneumonia may need to revisit this daily for risk-benefit calculation (2) Acute respiratory failure with hypoxia Assessment/Plan: As above, respiratory failure secondary to Covid pneumonia with possible healthcare associated pneumonia in addition Has been on appropriate antibiotic therapy for several days including linezolid and vancomycin Added Levaquin today due to some worsening in respiratory status and x-ray findings (3) HCAP (healthcare-associated pneumonia) Assessment/Plan: As above, worsening respiratory status today. Chest x-ray shows worsening left lower lobe consolidation Added Levaquin for atypical microorganism coverage Discussed with family who is considering ultimate goals of care as patient has previously expressed wishes to not be intubated. Informed patient we will give this another 48 hours and then reconvene and if not improved, there is a good chance the 7-day alcohol may not be very different, and 7 days was used as there benchmarks for maximum ventilation time. If not improving the next couple of days we will try to get a palliative consult before the weekend. Otherwise, continue current management - Current Meds Current Meds: Current Medications Generic Name Dose Route Start Last Admin Trade Name Claudia PRN Reason Stop Dose Admin Acetaminophen 650 mg 01/29/21 17:09 02/09/21 08:28 Acetaminophen 325 Mg Tablet PO 650 mg Q4HR PRN Administration Pain 1 to 4 Albuterol 2 puffs 01/30/21 08:37 02/10/21 12:04 Albuterol 1 Puff INH 2 puffs Q4HR PRN Administration Wheezing Chlorhexidine Gluconate 15 ml 02/13/21 21:00 02/15/21 09:55 Chlorhexidine Gluconate 15 Ml Udc PO 15 ml BID GEORGIE Administration Dexamethasone 6 mg 02/10/21 09:00 02/15/21 09:53 Dexamethasone 4 Mg/Ml Vial IVP 6 mg DAILY GEORGIE Administration Enoxaparin Sodium 80 mg 02/13/21 21:00 02/15/21 09:50 Enoxaparin 80 Mg/0.8 Ml Syringe SUBQ 80 mg BID GEORGIE Administration Linezolid 600 mg in 300 mls @ 300 mls/hr 02/09/21 15:00 02/15/21 16:55 Zyvox 600 Mg/300 Ml IV Infused Q12H GEORGIE Infusion Propofol 500 mg in 50 mls @ 4.74 mls/hr 02/13/21 10:00 02/15/21 18:25 Diprivan IV 40 mcg/kg/min .[id number] GEORGIE 18.96 mls/hr Administration Protocol 10 MCG/KG/MIN Norepinephrine Bitartrate 8 mg 250 mls @ 15 mls/hr 02/13/21 13:00 02/15/21 18:23 / Dextrose IV 3 mcg/min .[id number] GEORGIE 5.625 mls/hr Titration Protocol 8 MCG/MIN Cefepime HCl 2 gm/ Sodium 100 mls @ 200 mls/hr 02/14/21 21:00 02/15/21 11:15 Chloride IV Infused BID GEORGIE Infusion Levofloxacin 500 mg in 100 mls @ 100 mls/hr 02/15/21 16:00 02/15/21 17:32 Levaquin 500 Mg/100 Ml IV 100 mls/hr Q24H GEORGIE Administration Lidocaine 1 patch 02/06/21 15:29 02/10/21 19:17 Lidocaine Patch 5% TOP 1 patch DAILY PRN Administration PAIN Lorazepam 0.5 mg 02/11/21 10:33 02/12/21 08:35 Lorazepam 0.5 Mg Tablet PO 0.5 mg Q6H PRN Administration Anxiety Lorazepam 0.5 mg 02/12/21 10:19 02/14/21 16:31 Lorazepam 2 Mg/Ml Vial IVP 0.5 mg Q4H PRN Administration Anxiety Morphine Sulfate 2 mg 02/12/21 10:41 02/14/21 21:29 Morphine 2 Mg/Ml Carpuject IVP 2 mg Q1HR PRN Administration PAIN Ondansetron HCl 4 mg 01/29/21 17:09 01/30/21 22:04 Ondansetron Odt 4 Mg Tablet TL 4 mg Q6HR PRN Administration Nausea / Vomiting Oxycodone HCl 5 mg 09/18/21 17:09 02/09/21 09:39 Oxycodone 5 Mg Tablet PO 5 mg Q4HR PRN Administration Pain 5 to 7 Oxymetazoline HCl 2 sprays 02/07/21 21:10 02/08/21 08:03 Oxymetazoline Hcl 100 Sprays Bottle CANDIDA 2 sprays BID PRN Administration Nasal Congestion Pantoprazole Sodium 40 mg 02/13/21 12:00 02/15/21 09:54 Pantoprazole 40 Mg Vial IVP 40 mg DAILY GEORGIE Administration Polyethylene Glycol 17 gm 02/01/21 09:00 02/15/21 12:51 Polyethylene Glycol 3350 17 Gm Packet PO Not Given DAILY GEORGIE Sodium Chloride 10 ml 01/29/21 17:09 02/14/21 05:57 Sodium Chloride Flush 0.9% 10 Ml Syringe IVP 10 ml PRN PRN Administration NEEDED PER PROVIDER ORDERS Sodium Chloride 10 ml 01/30/21 01:00 02/15/21 09:55 Sodium Chloride Flush 0.9% 10 Ml Syringe IVP 10 ml 0100,0900,1700 GEORGIE Administration Throat Lozenges 1 lozenge 01/30/21 02:25 01/30/21 04:54 Benzocaine/Menthol Lozenge MM 1 lozenge Q2HR PRN Administration Throat pain - Lab Result Fish Bone Diagrams: 02/15/21 05:25 02/15/21 05:25 - Diagnostic Imaging Results Diagnostic Imaging Results: Final report reviewed, Read contemporaneously - Additional Planning Condition/Complexity: Critical My Orders: My Active Orders 02/15/21 16:00 levoFLOXacin 500 MG/100 ML [Levaquin 500 mg/100 ml] 500 mg in 100 ml IV Q24H 02/16/21 05:00 CRP - C-REACTIVE PROTEIN [CHEM] DAILYLAB 02/16/21 09:00 Chest 1 View X-Ray [XR] DAILY 02/17/21 05:00 COMPREHENSIVE METABOLIC PANEL [CHEM] Timed CRP - C-REACTIVE PROTEIN [CHEM] DAILYLAB MAGNESIUM [CHEM] Timed PHOSPHORUS [CHEM] Timed PREALBUMIN [CHEM] Timed 02/20/21 05:00 COMPREHENSIVE METABOLIC PANEL [CHEM] Timed MAGNESIUM [CHEM] Timed PHOSPHORUS [CHEM] Timed PREALBUMIN [CHEM] Timed Objective Vital Signs: Vital Signs - 24 hr 02/14/21 02/14/2121 19:00 19:40 20:00 Temperature Heart Rate 81 Heart Rate [ 69 78 Monitoring electrodes] Respiratory 21 24 Rate Blood Pressure 125/83 H 112/83 H [Left Brachial artery] O2 Saturation 91 L 90 L 02/14/21 02/14/21 02/14/21 21:00 21:35 22:00 Temperature Heart Rate 61 Heart Rate [ 67 56 L Monitoring electrodes] Respiratory 22 17 Rate Blood Pressure 124/85 H 98/72 [Left Brachial artery] O2 Saturation 92 90 L 02/14/21 02/14/21 02/15/21 23:00 23:50 00:00 Temperature 36.7 C Heart Rate 54 L Heart Rate [ 55 L 51 L Monitoring electrodes] Respiratory 16 20 Rate Blood Pressure 109/73 104/72 [Left Brachial artery] O2 Saturation 96 96 02/15/21 02/15/21 02/15/21 01:00 01:55 02:00 Temperature Heart Rate 44 L Heart Rate [ 45 L 49 L Monitoring electrodes] Respiratory 16 22 Rate Blood Pressure 113/71 108/77 [Left Brachial artery] O2 Saturation 95 97 02/15/21 02/15/21 02/15/21 03:00 03:55 04:00 Temperature 36.7 C Heart Rate 45 L Heart Rate [ 42 L 46 L Monitoring electrodes] Respiratory 19 20 Rate Blood Pressure 105/74 106/86 H [Left Brachial artery] O2 Saturation 96 98 02/15/21 02/15/21 02/15/21 04:56 05:55 06:00 Temperature Heart Rate 66 Heart Rate [ 48 L 64 Monitoring electrodes] Respiratory 20 20 Rate Blood Pressure 137/88 H [Left Brachial artery] O2 Saturation 98 89 L 02/15/21 02/15/21 02/15/21 07:00 07:30 08:10 Temperature 36.6 C Heart Rate 73 Heart Rate [ 69 85 Monitoring electrodes] Respiratory 24 33 H Rate Blood Pressure 123/88 H 149/79 H [Left Brachial artery] O2 Saturation 95 90 L 02/15/21 02/15/21 02/15/21 08:18 09:00 09:50 Temperature Heart Rate 70 Heart Rate [ 74 Monitoring electrodes] Respiratory 32 H 27 H Rate Blood Pressure 124/74 [Left Brachial artery] O2 Saturation 89 L 92 02/15/21 02/15/21 02/15/21 10:00 11:00 11:40 Temperature Heart Rate 76 Heart Rate [ 82 79 Monitoring electrodes] Respiratory 24 26 H Rate Blood Pressure 131/83 H 131/83 H [Left Brachial artery] O2 Saturation 93 91 L 02/15/21 02/15/21 02/15/21 12:00 13:00 14:00 Temperature 37.4 C Heart Rate Heart Rate [ 76 78 79 Monitoring electrodes] Respiratory 28 H 27 H 30 H Rate Blood Pressure 110/72 138/70 H 102/71 [Left Brachial artery] O2 Saturation 92 92 94 02/15/21 02/15/21 02/15/21 14:15 15:00 16:00 Temperature Heart Rate 81 Heart Rate [ 77 81 Monitoring electrodes] Respiratory 28 H 25 H Rate Blood Pressure 111/65 104/78 [Left Brachial artery] O2 Saturation 94 95 02/15/21 02/15/21 02/15/21 16:55 17:00 18:00 Temperature Heart Rate 76 Heart Rate [ 79 90 Monitoring electrodes] Respiratory 29 H 28 H Rate Blood Pressure 121/76 141/81 H [Left Brachial artery] O2 Saturation 95 94 Oxygen O2 Source Mechanical ventilator Oxygen Flow Rate 2 I&O (Last 24 Hrs): Intake and Output Totals x24h 02/13/21 02/14/21 02/15/21 23:59 23:59 23:59 Intake Total 729.457 7680.445 2116.234 Output Total 2510 3260 1844 Balance -1552.832 -1754.555 272.234 General: Other (Intubated, but was agitated for a brief period today and shaking his head no evidence to suggest he does not want to be intubated but not able to confirm this given patient's nonverbal status during intubation.) HEENT: Atraumatic Lymphatic: no adenopathy Neuro: Other (Bed, but agitated briefly. Able to move head and involuntary fashion. Opening left eye slightly.) Cardiovascular: Regular rate, Normal S1, Normal S2 Abdomen: Normal bowel sounds - Results Results: Laboratory Results WBC 11.7 x10^3/uL (4.8-10.8) H 02/15/21 05:25 RBC 3.21 10^6/uL (4.70-6.10) L 02/15/21 05:25 Hgb 10.6 g/dL (14.0-18.0) L 02/15/21 05:25 Hct 31.0 % (42.0-52.0) L 02/15/21 05:25 MCV 96.6 fL (80.0-94.0) H 02/15/21 05:25 MCH 33.0 pg (27.0-31.0) H 02/15/21 05:25 MCHC 34.2 g/dL (32.0-36.0) 02/15/21 05:25 RDW 12.9 % (12.0-15.0) 02/15/21 05:25 Plt Count 212 10^3/uL (130-450) 02/15/21 05:25 MPV 9.9 fL (7.4-11.4) 02/15/21 05:25 Neut # (Auto) 10.9 10^3/uL (1.5-6.6) H 02/15/21 05:25 Lymph # (Auto) 0.4 10^3/uL (1.5-3.5) L 02/15/21 05:25 Dickens # (Auto) 0.3 10^3/uL (0.0-1.0) 02/15/21 05:25 Eos # (Auto) 0.0 10^3/uL (0.0-0.7) 02/15/21 05:25 Baso # (Auto) 0.0 10^3/uL (0.0-0.1) 02/15/21 05:25 Absolute Nucleated RBC 0.02 x10^3/uL 02/15/21 05:25 Nucleated RBC % 0.2 /100WBC 02/15/21 05:25 D-Dimer 348.8 ng/mL (200.0-255.0) H 01/29/21 16:35 Bld Gas Analysis Time 0637 02/15/21 06:28 Sample Site RIGHT BRACHIAL 02/15/21 06:28 Patient Temperature Cancelled 02/12/21 11:15 ABG pH 7.50 (7.35-7.45) H 02/15/21 06:28 ABG pCO2 42 mmHg (34-45) 02/15/21 06:28 ABG pO2 52 mmHg (80-100) L* 02/15/21 06:28 ABG HCO3 32.1 mmol/L (22.0-26.0) H 02/15/21 06:28 ABG Total CO2 33.4 MMOL/L (21.0-29.0) H 02/15/21 06:28 ABG O2 Saturation 88 % (94-98) L 02/15/21 06:28 ABG Oximetry Spot Check Cancelled 02/12/21 11:15 ABG Base Excess 8.1 mmol/L (-2.0-3.0) H 02/15/21 06:28 Choco Test POSITIVE 02/15/21 06:28 Respiration Rate 20 b/min 02/15/21 06:28 Room Air Cancelled 02/12/21 11:15 O2 Delivery Device VENTILATOR 02/15/21 06:28 O2 Liters/Min Cancelled 02/12/21 11:15 Vent Mode ASSIST/CONTROL 02/15/21 06:28 FiO2 75.00 02/15/21 06:28 Tidal Volume 450 mL 02/15/21 06:28 PEEP 6 cmH2O 02/15/21 06:28 Pressure Support Vent Cancelled 02/12/21 11:15 EPAP 7 cmH2O 02/13/21 07:45 IPAP 12 cmH2O 02/13/21 07:45 Sodium 134 mmol/L (135-145) L 02/15/21 05:25 Potassium 3.5 mmol/L (3.5-5.0) 02/15/21 05:25 Chloride 92 mmol/L (101-111) L 02/15/21 05:25 Carbon Dioxide 30 mmol/L (21-32) 02/15/21 05:25 Anion Gap 12.0 (6-13) 02/15/21 05:25 BUN 39 mg/dL (6-20) H 02/15/21 05:25 Creatinine 0.8 mg/dL (0.6-1.2) 02/15/21 05:25 Estimated GFR (MDRD) 93 (>89) 02/15/21 05:25 Glucose 187 mg/dL (70-100) H 02/15/21 05:25 POC Whole Bld Glucose 133 mg/dL (70 - 100) H 02/15/21 00:24 Lactic Acid 1.8 mmol/L (0.5-2.2) 01/29/21 16:35 Calcium 7.9 mg/dL (8.5-10.3) L 02/15/21 05:25 Phosphorus 2.8 mg/dL (2.5-4.6) 02/15/21 05:25 Magnesium 2.4 mg/dL (1.7-2.8) 02/15/21 05:25 Total Bilirubin 1.8 mg/dL (0.2-1.0) H 02/15/21 05:25 AST 25 IU/L (10-42) 02/15/21 05:25 ALT 38 IU/L (10-60) 02/15/21 05:25 Alkaline Phosphatase 97 IU/L (42-121) 02/15/21 05:25 C-Reactive Protein 23.1 mg/dL (0-1.0) H 02/15/21 05:25 B-Natriuretic Peptide 314 pg/mL (5-100) H 02/09/21 04:42 Total Protein 5.8 g/dL (6.7-8.2) L 02/15/21 05:25 Albumin 2.0 g/dL (3.2-5.5) L 02/15/21 05:25 Globulin 3.8 g/dL (2.1-4.2) 02/15/21 05:25 Albumin/Globulin Ratio 0.5 (1.0-2.2) L 02/15/21 05:25 Prealbumin 8 mg/dL (18-45) L 02/15/21 05:25 Triglycerides 146 mg/dL (-149) 02/15/21 05:25 25-OH Vitamin D Total 64 ng/mL (30-100) 02/02/21 11:19 TSH 0.46 uIU/mL (0.34-5.60) 02/08/21 08:16 Nasal Adenovirus (PCR) NOT DETECTED 01/29/21 16:43 Nasal B. parapertussis DNA (PCR) NOT DETECTED 01/29/21 16:43 Nasal Coronavir 229E PCR NOT DETECTED 01/29/21 16:43 Nasal Coronavir HKU1 PCR NOT DETECTED 01/29/21 16:43 Nasal Coronavir NL63 PCR NOT DETECTED 01/29/21 16:43 Nasal Coronavir OC43 PCR NOT DETECTED 01/29/21 16:43 Nasal Enterovir/Rhinovir PCR NOT DETECTED 01/29/21 16:43 Nasal Influenza B PCR NOT DETECTED 01/29/21 16:43 Nasal Parainfluen 1 PCR NOT DETECTED 01/29/21 16:43 Nasal Parainfluen 2 PCR NOT DETECTED 01/29/21 16:43 Nasal Parainfluen 3 PCR NOT DETECTED 01/29/21 16:43 Nasal Parainfluen 4 PCR NOT DETECTED 01/29/21 16:43 Nasal RSV (PCR) NOT DETECTED 01/29/21 16:43 Nasal Screen MRSA (PCR) NEGATIVE (NEGATIVE) 02/09/21 11:30 Nasal B.pertussis DNA PCR NOT DETECTED 01/29/21 16:43 Nasal C.pneumoniae (PCR) NOT DETECTED 01/29/21 16:43 Cadnida Human Metapneumo PCR NOT DETECTED 01/29/21 16:43 Nasal M.pneumoniae (PCR) NOT DETECTED 01/29/21 16:43 Nasal SARS-CoV-2 (PCR) DETECTED A 01/29/21 16:43 ABX Reporting Has patient been on IV antibiotics over the past 48 hours?: Yes Current Medications - Current Medications Current Medications: Current Medications Generic Name Dose Route Start Last Admin Trade Name Freq PRN Reason Stop Dose Admin Acetaminophen 650 mg 01/29/21 17:09 02/09/21 08:28 Acetaminophen 325 Mg Tablet PO 650 mg Q4HR PRN Administration Pain 1 to 4 Albuterol 2 puffs 01/30/21 08:37 02/10/21 12:04 Albuterol 1 Puff INH 2 puffs Q4HR PRN Administration Wheezing Chlorhexidine Gluconate 15 ml 02/13/21 21:00 02/15/21 09:55 Chlorhexidine Gluconate 15 Ml Udc PO 15 ml BID GEORGIE Administration Dexamethasone 6 mg 02/10/21 09:00 02/15/21 09:53 Dexamethasone 4 Mg/Ml Vial IVP 6 mg DAILY GEORGIE Administration Enoxaparin Sodium 80 mg 02/13/21 21:00 02/15/21 09:50 Enoxaparin 80 Mg/0.8 Ml Syringe SUBQ 80 mg BID GEORGIE Administration Linezolid 600 mg in 300 mls @ 300 mls/hr 02/09/21 15:00 02/15/21 16:55 Zyvox 600 Mg/300 Ml IV Infused Q12H GEORGIE Infusion Propofol 500 mg in 50 mls @ 4.74 mls/hr 02/13/21 10:00 02/15/21 18:25 Diprivan IV 40 mcg/kg/min .[id number] GEORGIE 18.96 mls/hr Administration Protocol 10 MCG/KG/MIN Norepinephrine Bitartrate 8 mg 250 mls @ 15 mls/hr 02/13/21 13:00 02/15/21 18:23 / Dextrose IV 3 mcg/min .[id number] GEORGIE 5.625 mls/hr Titration Protocol 8 MCG/MIN Cefepime HCl 2 gm/ Sodium 100 mls @ 200 mls/hr 02/14/21 21:00 02/15/21 11:15 Chloride IV Infused BID GEORGIE Infusion Levofloxacin 500 mg in 100 mls @ 100 mls/hr 02/15/21 16:00 02/15/21 17:32 Levaquin 500 Mg/100 Ml IV 100 mls/hr Q24H GEORGIE Administration Lidocaine 1 patch 02/06/21 15:29 02/10/21 19:17 Lidocaine Patch 5% TOP 1 patch DAILY PRN Administration PAIN Lorazepam 0.5 mg 02/11/21 10:33 02/12/21 08:35 Lorazepam 0.5 Mg Tablet PO 0.5 mg Q6H PRN Administration Anxiety Lorazepam 0.5 mg 02/12/21 10:19 02/14/21 16:31 Lorazepam 2 Mg/Ml Vial IVP 0.5 mg Q4H PRN Administration Anxiety Morphine Sulfate 2 mg 02/12/21 10:41 02/14/21 21:29 Morphine 2 Mg/Ml Carpuject IVP 2 mg Q1HR PRN Administration PAIN Ondansetron HCl 4 mg 01/29/21 17:09 01/30/21 22:04 Ondansetron Odt 4 Mg Tablet TL 4 mg Q6HR PRN Administration Nausea / Vomiting Oxycodone HCl 5 mg 01/29/21 17:09 02/09/21 09:39 Oxycodone 5 Mg Tablet PO 5 mg Q4HR PRN Administration Pain 5 to 7 Oxymetazoline HCl 2 sprays 02/07/21 21:10 02/08/21 08:03 Oxymetazoline Hcl 100 Sprays Bottle CANDIDA 2 sprays BID PRN Administration Nasal Congestion Pantoprazole Sodium 40 mg 02/13/21 12:00 02/15/21 09:54 Pantoprazole 40 Mg Vial IVP 40 mg DAILY GEORGIE Administration Polyethylene Glycol 17 gm 02/01/21 09:00 02/15/21 12:51 Polyethylene Glycol 3350 17 Gm Packet PO Not Given DAILY GEORGIE Sodium Chloride 10 ml 01/29/21 17:09 02/14/21 05:57 Sodium Chloride Flush 0.9% 10 Ml Syringe IVP 10 ml PRN PRN Administration NEEDED PER PROVIDER ORDERS Sodium Chloride 10 ml 01/30/21 01:00 02/15/21 18:33 Sodium Chloride Flush 0.9% 10 Ml Syringe IVP 10 ml 0100,0900,1700 GEORGIE Administration Throat Lozenges 1 lozenge 01/30/21 02:25 01/30/21 04:54 Benzocaine/Menthol Lozenge MM 1 lozenge Q2HR PRN Administration Throat pain
[2021-02-16] MEDS: MIDAZOLAM DRIP 50 MG/100 ML BAG IV SCH ×3 (00:44→16:31)
[2021-02-16] MEDS: PROPOFOL 500 MG/50 ML 500 MG/50 ML VIAL IV SCH ×8 (02:46→21:03)
[2021-02-16] MEDS: LINEZOLID 600 MG/300 ML 600 MG/300 ML BAG IV SCH ×2 (03:09→15:37)
[2021-02-16 06:11] LABS: BASOPHILS % (AUTO) 0.1 %; EOSINOPHILS # (AUTO) 0.2 10^3/uL (0.0-0.7); EOSINOPHILS % (AUTO) 1.9 %; HCT - HEMATOCRIT 31.6 % (42.0-52.0); HGB - HEMOGLOBIN 10.7 g/dL (14.0-18.0); LYMPHOCYTES # (AUTO) 0.5 10^3/uL (1.5-3.5); LYMPHOCYTES % (AUTO) 4.8 %; MEAN CORPUSCULAR HEMOGLOBIN 32.8 pg (27.0-31.0); MEAN CORPUSCULAR HGB CONC 33.9 g/dL (32.0-36.0); MEAN CORPUSCULAR VOLUME 96.9 fL (80.0-94.0); MEAN PLATELET VOLUME 9.8 fL (7.4-11.4); MONOCYTES # (AUTO) 0.2 10^3/uL (0.0-1.0); MONOCYTES % (AUTO) 1.5 %; NEUTROPHILS # (AUTO) 10.3 10^3/uL (1.5-6.6); NEUTROPHILS % (AUTO) 90.6 %; PLT - PLATELET COUNT 209 10^3/uL (130-450); RED BLOOD COUNT 3.26 10^6/uL (4.70-6.10); RED CELL DISTRIBUTION WIDTH 12.9 % (12.0-15.0); WHITE BLOOD COUNT 11.4 x10^3/uL (4.8-10.8)
[2021-02-16 06:17] LABS: CALCIUM 7.6 mg/dL (8.5-10.3); CREATININE 0.7 mg/dL (0.6-1.2); CRP - C-REACTIVE PROTEIN 15.5 mg/dL (0-1.0); POTASSIUM 3.1 mmol/L (3.5-5.0)
[2021-02-16 07:35] LABS: VBG PH 7.453 (7.31-7.41)
[2021-02-16 07:36] LABS: CALCIUM, IONIZED 1.04 mmol/L (1.15-1.33)
[2021-02-16 08:14] LABS: MAGNESIUM 2.3 mg/dL (1.7-2.8); PHOSPHORUS 1.8 mg/dL (2.5-4.6)
--- NOTE | 2021-02-16 08:16 | XRAY Report ---
PROCEDURE: Chest 1 View X-Ray INDICATIONS: Intubated, Covid +, Follow up, RUL abnormal sounds TECHNIQUE: One view of the chest was acquired. COMPARISON: February 15, 2021 FINDINGS: Overlying artifact is noted. SUPPORT DEVICES: Redemonstrated left IJ catheter, endotracheal tube, and enteric tube, grossly unchan ged. LUNG/PLEURA: The previously demonstrated right apical pneumothorax is no longer visualized. Persisten t bilateral airspace opacities, likely reflecting the patient's known viral pneumonia. Blunting of th e right costophrenic sulcus, which may reflect atelectasis and/or pleural fluid. MEDIASTINUM: The cardiomediastinal silhouette is within normal limits. BONES/SOFT TISSUES: No acute abnormality. IMPRESSION: 1.No appreciable right apical pneumothorax. Reviewed by: Ruperto Garcia MD on 02/16/2021 8:14 AM PDT Approved by: Ruperto Garcia MD on 02/16/2021 8:14 AM PDT Station ID: [id number]
[2021-02-16] MEDS: POTASSIUM CHLORIDE 20 MEQ/15 ML UDC PO SCH ×2 (08:34→11:50)
[2021-02-16] MEDS: CHLORHEXIDINE GLUCONATE 15 ML UDC PO SCH (11:35)
[2021-02-16] MEDS: DEXAMETHASONE 4 MG/ML VIAL IVP SCH (11:39)
[2021-02-16] MEDS: PANTOPRAZOLE 40 MG VIAL IVP SCH (11:42)
[2021-02-16] MEDS: SODIUM CHLORIDE FLUSH 0.9% 10 ML SYRINGE IVP PRN ×2 (11:43→16:38)
[2021-02-16] MEDS: ENOXAPARIN 80 MG/0.8 ML SYRINGE SUBQ SCH (11:46)
[2021-02-16] MEDS: polyethylene glycoL 3350 17 GM PACKET PO SCH (11:48)
[2021-02-16] MEDS: SODIUM CHLORIDE FLUSH 0.9% 10 ML SYRINGE IVP SCH ×2 (11:50→16:37)
[2021-02-16] MEDS ORDERED: SODIUM CHLORIDE 0.9% MINIBAG 100 ML IV ONE (13:32)
[2021-02-16] MEDS: CEFEPIME 2 GM in SODIUM CHLORIDE 0.9% MINIBAG 100 ML IV SCH (13:36)
[2021-02-16] MEDS: CALCIUM CARBONATE CHEW 500 MG TABLET PO SCH ×2 (13:43→17:45)
--- NOTE | 2021-02-16 15:03 | PROVIDER PROGRESS NOTE ---
Assessment/Plan - Problem List (1) Pneumonia due to COVID-19 virus Assessment/Plan: Still on relatively high settings on the ventilator 450 cc tidal volume Respiratory rate of 20 but patient is breathing at 26 FiO2 of 80% PEEP was decreased to 5 Blood gas showing: pH 7.488 PCO2 43.7 PO2 58.0 Chest x-ray today shows no improvement. He has been exhibiting signs of discomfort and respiratory rate is about 26, indicating the patient's discomfort despite being on maximum dose of Versed drip and propofol drip. With all of this in mind, I contacted Jamey, patient's son and POA, who I have been conversing with for daily updates. The feeling among Jamey and family, which I fully support, is that at this point the treatment is likely futile and given the amount of suffering and discomfort that Mr. Philippe is experiencing with the eventual outcome that he is not likely to be successfully extubated with any meaningful quality of life, that we should reconsider comfort care. Given that patient had previously been DNR/DNI, family was already hesitant about any significant length of time on the ventilator and had previously set a limit of 7 days maximum. But, again, given that things have not improved, and in fact he looks more uncomfortable, at this point we have mutually decided with shared decision making that it would be in Mr. Philippe's best interest and it would be most humane, if we transition him to comfort care and initiate comfort measures with withdrawal of care. We will arrange for their arrival and visitation and once they are here, will likely start a Dilaudid infusion. For now, will start as needed Dilaudid pushes for comfort. (2) Acute respiratory failure with hypoxia Assessment/Plan: As above (3) HCAP (healthcare-associated pneumonia) Assessment/Plan: Started on Levaquin yesterday to cover for atypical organisms. Bacterial component is still somewhat unclear as he does not seem to be responding very well to antibiotics with CRP level increasing. (4) On mechanically assisted ventilation Assessment/Plan: Settings as above Not able to wean Discussed with family regarding ultimate goals of care as they have previously set a limit #days of mechanically ventilated assistance. He had previously expressed not wanting to be ventilated and changed only at the last minute. Currently maximized on Versed and propofol. See above re: plans to transition to comfort care. - Current Meds Current Meds: Current Medications Generic Name Dose Route Start Last Admin Trade Name Freq PRN Reason Stop Dose Admin Acetaminophen 650 mg 01/29/21 17:09 02/09/21 08:28 Acetaminophen 325 Mg Tablet PO 650 mg Q4HR PRN Administration Pain 1 to 4 Albuterol 2 puffs 01/30/21 08:37 02/10/21 12:04 Albuterol 1 Puff INH 2 puffs Q4HR PRN Administration Wheezing Calcium Carbonate/Glycine 1,250 mg 02/16/21 13:00 02/16/21 13:43 Calcium Carbonate Chew 500 Mg Tablet PO 02/16/21 17:01 1,250 mg Q4H GEORGIE Administration Protocol Chlorhexidine Gluconate 15 ml 02/13/21 21:00 02/16/21 11:35 Chlorhexidine Gluconate 15 Ml Udc PO 15 ml BID GEORGIE Administration Dexamethasone 6 mg 02/10/21 09:00 02/16/21 11:39 Dexamethasone 4 Mg/Ml Vial IVP 6 mg DAILY GEORGIE Administration Enoxaparin Sodium 80 mg 02/13/21 21:00 02/16/21 11:46 Enoxaparin 80 Mg/0.8 Ml Syringe SUBQ 80 mg BID GEORGIE Administration Linezolid 600 mg in 300 mls @ 300 mls/hr 02/09/21 15:00 02/16/21 04:10 Zyvox 600 Mg/300 Ml IV Infused Q12H GEORGIE Infusion Propofol 500 mg in 50 mls @ 4.74 mls/hr 02/13/21 10:00 02/16/21 13:00 Diprivan IV 40 mcg/kg/min .[id number] GEORGIE 18.96 mls/hr Administration Protocol 10 MCG/KG/MIN Norepinephrine Bitartrate 8 mg 250 mls @ 15 mls/hr 02/13/21 13:00 02/16/21 11:35 / Dextrose IV 3 mcg/min .[id number] GEORGIE 5.625 mls/hr Titration Protocol 8 MCG/MIN Cefepime HCl 2 gm/ Sodium 100 mls @ 200 mls/hr 02/14/21 21:00 02/16/21 13:36 Chloride IV 100 mls/hr BID GEORGIE Administration Levofloxacin 500 mg in 100 mls @ 100 mls/hr 02/15/21 16:00 02/15/21 18:45 Levaquin 500 Mg/100 Ml IV Infused Q24H GEORGIE Infusion Midazolam HCl 50 mg in 100 mls @ 6.12 mls/hr 02/15/21 23:45 02/16/21 13:57 Versed Drip IV 0.1 mg/kg/hr .[id number] GEORGIE 15.3 mls/hr Titration Protocol 0.04 MG/KG/HR Lidocaine 1 patch 02/06/21 15:29 02/10/21 19:17 Lidocaine Patch 5% TOP 1 patch DAILY PRN Administration PAIN Lorazepam 0.5 mg 02/11/21 10:33 02/12/21 08:35 Lorazepam 0.5 Mg Tablet PO 0.5 mg Q6H PRN Administration Anxiety Lorazepam 0.5 mg 02/12/21 10:19 02/14/21 16:31 Lorazepam 2 Mg/Ml Vial IVP 0.5 mg Q4H PRN Administration Anxiety Morphine Sulfate 2 mg 02/12/21 10:41 02/14/21 21:29 Morphine 2 Mg/Ml Carpuject IVP 2 mg Q1HR PRN Administration PAIN Ondansetron HCl 4 mg 01/29/21 17:09 01/30/21 22:04 Ondansetron Odt 4 Mg Tablet TL 4 mg Q6HR PRN Administration Nausea / Vomiting Oxycodone HCl 5 mg 01/29/21 17:09 02/09/21 09:39 Oxycodone 5 Mg Tablet PO 5 mg Q4HR PRN Administration Pain 5 to 7 Oxymetazoline HCl 2 sprays 02/07/21 21:10 02/08/21 08:03 Oxymetazoline Hcl 100 Sprays Bottle CANDIDA 2 sprays BID PRN Administration Nasal Congestion Pantoprazole Sodium 40 mg 02/13/21 12:00 02/16/21 11:42 Pantoprazole 40 Mg Vial IVP 40 mg DAILY GEORGIE Administration Polyethylene Glycol 17 gm 02/01/21 09:00 02/16/21 11:48 Polyethylene Glycol 3350 17 Gm Packet PO 17 gm DAILY GEORGIE Administration Sodium Chloride 10 ml 01/29/21 17:09 02/16/21 11:43 Sodium Chloride Flush 0.9% 10 Ml Syringe IVP 30 ml PRN PRN Administration NEEDED PER PROVIDER ORDERS Sodium Chloride 10 ml 01/30/21 01:00 02/16/21 11:50 Sodium Chloride Flush 0.9% 10 Ml Syringe IVP Not Given 0100,0900,1700 GEORGEI Throat Lozenges 1 lozenge 01/30/21 02:25 01/30/21 04:54 Benzocaine/Menthol Lozenge MM 1 lozenge Q2HR PRN Administration Throat pain - Lab Result Fish Bone Diagrams: 02/16/21 05:45 02/16/21 05:45 - Diagnostic Imaging Results Diagnostic Imaging Results: Final report reviewed - Additional Planning Condition/Complexity: Critical My Orders: My Active Orders 02/15/21 16:00 levoFLOXacin 500 MG/100 ML [Levaquin 500 mg/100 ml] 500 mg in 100 ml IV Q24H 02/16/21 14:43 ABG - ARTERIAL BLOOD GAS [BG] Stat 02/16/21 14:44 RT - Obtain Arterial Specimen [RC] .ONCE 02/17/21 05:00 COMPREHENSIVE METABOLIC PANEL [CHEM] Timed CRP - C-REACTIVE PROTEIN [CHEM] DAILYLAB MAGNESIUM [CHEM] Timed PHOSPHORUS [CHEM] Timed PREALBUMIN [CHEM] Timed 02/20/21 05:00 COMPREHENSIVE METABOLIC PANEL [CHEM] Timed MAGNESIUM [CHEM] Timed PHOSPHORUS [CHEM] Timed PREALBUMIN [CHEM] Timed Plan Discussed with:: Family, Power of Multi Operation Forming Machine Setter Time Spent: 31-60 minutes Subjective - Subjective Patient Reports: Other (Patient is sedated and intubated so unable to express subjective complaints however he has been periodically agitated and moving against the vent at times despite being chemically sedated. Maxed out on current dose of propofol and Versed) Objective Vital Signs: Vital Signs - 24 hr 02/15/21 02/15/21 02/15/21 16:00 16:55 17:00 Temperature Heart Rate 76 Heart Rate [ 81 79 Monitoring electrodes] Respiratory 25 H 29 H Rate Blood Pressure 104/78 121/76 [Left Brachial artery] O2 Saturation 95 95 02/15/21 02/15/21 02/15/21 18:00 18:43 19:00 Temperature 36.8 C Heart Rate Heart Rate [ 90 80 Monitoring electrodes] Respiratory 28 H 26 H Rate Blood Pressure 141/81 H 116/78 [Left Brachial artery] O2 Saturation 94 97 02/15/21 02/15/21 02/15/21 20:00 20:35 21:00 Temperature Heart Rate 67 Heart Rate [ 74 70 Monitoring electrodes] Respiratory 25 H 22 Rate Blood Pressure 116/77 93/66 [Left Brachial artery] O2 Saturation 96 99 02/15/21 02/15/21 02/15/21 22:00 23:00 23:30 Temperature Heart Rate 66 Heart Rate [ 70 66 Monitoring electrodes] Respiratory 25 H 24 Rate Blood Pressure 108/62 106/70 [Left Brachial artery] O2 Saturation 96 96 02/16/21 02/16/21 02/16/21 00:00 01:00 01:35 Temperature 36.9 C Heart Rate 68 Heart Rate [ 60 71 Monitoring electrodes] Respiratory 22 24 Rate Blood Pressure 101/71 114/74 [Left Brachial artery] O2 Saturation 96 95 02/16/21 02/16/21 02/16/21 02:00 03:00 03:10 Temperature Heart Rate 62 Heart Rate [ 69 75 Monitoring electrodes] Respiratory 24 26 H Rate Blood Pressure 97/72 110/80 [Left Brachial artery] O2 Saturation 93 92 02/16/21 02/16/21 02/16/21 04:00 05:00 05:40 Temperature Heart Rate 64 Heart Rate [ 62 65 Monitoring electrodes] Respiratory 20 23 Rate Blood Pressure 87/65 L 97/62 [Left Brachial artery] O2 Saturation 98 97 02/16/21 02/16/21 02/16/21 06:00 07:00 07:30 Temperature Heart Rate 66 Heart Rate [ 65 70 Monitoring electrodes] Respiratory 24 19 Rate Blood Pressure 111/78 91/68 [Left Brachial artery] O2 Saturation 96 95 02/16/21 02/16/21 02/16/21 08:00 09:00 09:20 Temperature 36.8 C Heart Rate 67 Heart Rate [ 68 70 Monitoring electrodes] Respiratory 25 H 20 Rate Blood Pressure 99/62 90/67 [Left Brachial artery] O2 Saturation 97 96 02/16/21 02/16/21 02/16/21 10:00 11:00 11:15 Temperature Heart Rate 66 Heart Rate [ 70 76 Monitoring electrodes] Respiratory 28 H 25 H Rate Blood Pressure 97/67 95/64 [Left Brachial artery] O2 Saturation 95 96 02/16/21 02/16/21 02/16/21 12:00 13:00 13:07 Temperature 36.7 C Heart Rate Heart Rate [ 69 65 Monitoring electrodes] Respiratory 20 24 Rate Blood Pressure 95/70 76/54 L 121/66 [Left Brachial artery] O2 Saturation 97 97 02/16/21 13:55 Temperature Heart Rate 67 Heart Rate [ Monitoring electrodes] Respiratory Rate Blood Pressure [Left Brachial artery] O2 Saturation Oxygen O2 Source Mechanical ventilator Oxygen Flow Rate 2 I&O (Last 24 Hrs): Intake and Output Totals x24h 02/14/21 02/15/21 02/16/21 23:59 23:59 23:59 Intake Total 6696.282 5640.234 883.536 Output Total 3260 2044 781 Balance -9095.445 2344.234 102.536 General: Other (Chemically sedated, at times uncomfortable despite maximum sedating medications) HEENT: Atraumatic Neuro: Other (Chemically sedated) Cardiovascular: Regular rate, Normal S1, Normal S2 Respiratory: Other (Somewhat tachypneic with coarse breath sounds bilaterally) Abdomen: Normal bowel sounds Extremities: No edema Skin: No rashes - Results Results: Laboratory Results WBC 11.4 x10^3/uL (4.8-10.8) H 02/16/21 05:45 RBC 3.26 10^6/uL (4.70-6.10) L 02/16/21 05:45 Hgb 10.7 g/dL (14.0-18.0) L 02/16/21 05:45 Hct 31.6 % (42.0-52.0) L 02/16/21 05:45 MCV 96.9 fL (80.0-94.0) H 02/16/21 05:45 MCH 32.8 pg (27.0-31.0) H 02/16/21 05:45 MCHC 33.9 g/dL (32.0-36.0) 02/16/21 05:45 RDW 12.9 % (12.0-15.0) 02/16/21 05:45 Plt Count 209 10^3/uL (130-450) 02/16/21 05:45 MPV 9.8 fL (7.4-11.4) 02/16/21 05:45 Neut # (Auto) 10.3 10^3/uL (1.5-6.6) H 02/16/21 05:45 Lymph # (Auto) 0.5 10^3/uL (1.5-3.5) L 02/16/21 05:45 [place] # (Auto) 0.2 10^3/uL (0.0-1.0) 02/16/21 05:45 Eos # (Auto) 0.2 10^3/uL (0.0-0.7) 02/16/21 05:45 Baso # (Auto) 0.0 10^3/uL (0.0-0.1) 02/16/21 05:45 Absolute Nucleated RBC 0.00 x10^3/uL 02/16/21 05:45 Nucleated RBC % 0.0 /100WBC 02/16/21 05:45 D-Dimer 348.8 ng/mL (200.0-255.0) H 01/29/21 16:35 Bld Gas Analysis Time 0637 02/15/21 06:28 Sample Site RIGHT BRACHIAL 02/15/21 06:28 Patient Temperature Cancelled 02/12/21 11:15 ABG pH 7.50 (7.35-7.45) H 02/15/21 06:28 ABG pCO2 42 mmHg (34-45) 02/15/21 06:28 ABG pO2 52 mmHg (80-100) L* 02/15/21 06:28 ABG HCO3 32.1 mmol/L (22.0-26.0) H 02/15/21 06:28 ABG Total CO2 33.4 MMOL/L (21.0-29.0) H 02/15/21 06:28 ABG O2 Saturation 88 % (94-98) L 02/15/21 06:28 ABG Oximetry Spot Check Cancelled 02/12/21 11:15 ABG Base Excess 8.1 mmol/L (-2.0-3.0) H 02/15/21 06:28 Choco Test POSITIVE 02/15/21 06:28 VBG pH 7.453 (7.31-7.41) H 02/16/21 06:09 Ionized Calcium 1.04 mmol/L (1.15-1.33) L 02/16/21 06:09 Respiration Rate 20 b/min 02/15/21 06:28 Room Air Cancelled 02/12/21 11:15 O2 Delivery Device VENTILATOR 02/15/21 06:28 O2 Liters/Min Cancelled 02/12/21 11:15 Vent Mode ASSIST/CONTROL 02/15/21 06:28 FiO2 75.00 02/15/21 06:28 Tidal Volume 450 mL 02/15/21 06:28 PEEP 6 cmH2O 02/15/21 06:28 Pressure Support Vent Cancelled 02/12/21 11:15 EPAP 7 cmH2O 02/13/21 07:45 IPAP 12 cmH2O 02/13/21 07:45 Sodium 134 mmol/L (135-145) L 02/16/21 05:45 Potassium 3.1 mmol/L (3.5-5.0) L 02/16/21 05:45 Chloride 92 mmol/L (101-111) L 02/16/21 05:45 Carbon Dioxide 32 mmol/L (21-32) 02/16/21 05:45 Anion Gap 10.0 (6-13) 02/16/21 05:45 BUN 34 mg/dL (6-20) H 02/16/21 05:45 Creatinine 0.7 mg/dL (0.6-1.2) 02/16/21 05:45 Estimated GFR (MDRD) 109 (>89) 02/16/21 05:45 Glucose 92 mg/dL (70-100) 02/16/21 05:45 POC Whole Bld Glucose 133 mg/dL (70 - 100) H 02/15/21 00:24 Lactic Acid 1.8 mmol/L (0.5-2.2) 01/29/21 16:35 Calcium 7.6 mg/dL (8.5-10.3) L 02/16/21 05:45 Phosphorus 1.8 mg/dL (2.5-4.6) L 02/16/21 05:45 Magnesium 2.3 mg/dL (1.7-2.8) 02/16/21 05:45 Total Bilirubin 1.8 mg/dL (0.2-1.0) H 02/15/21 05:25 AST 25 IU/L (10-42) 02/15/21 05:25 ALT 38 IU/L (10-60) 02/15/21 05:25 Alkaline Phosphatase 97 IU/L (42-121) 02/15/21 05:25 C-Reactive Protein 15.5 mg/dL (0-1.0) H 02/16/21 05:45 B-Natriuretic Peptide 314 pg/mL (5-100) H 02/09/21 04:42 Total Protein 5.8 g/dL (6.7-8.2) L 02/15/21 05:25 Albumin 2.0 g/dL (3.2-5.5) L 02/15/21 05:25 Globulin 3.8 g/dL (2.1-4.2) 02/15/21 05:25 Albumin/Globulin Ratio 0.5 (1.0-2.2) L 02/15/21 05:25 Prealbumin 8 mg/dL (18-45) L 02/15/21 05:25 Triglycerides 146 mg/dL (-149) 02/15/21 05:25 25-OH Vitamin D Total 64 ng/mL (30-100) 02/02/21 11:19 TSH 0.46 uIU/mL (0.34-5.60) 02/08/21 08:16 Nasal Adenovirus (PCR) NOT DETECTED 01/29/21 16:43 Nasal B. parapertussis DNA (PCR) NOT DETECTED 01/29/21 16:43 Nasal Coronavir 229E PCR NOT DETECTED 01/29/21 16:43 Nasal Coronavir HKU1 PCR NOT DETECTED 01/29/21 16:43 Nasal Coronavir NL63 PCR NOT DETECTED 01/29/21 16:43 Nasal Coronavir OC43 PCR NOT DETECTED 01/29/21 16:43 Nasal Enterovir/Rhinovir PCR NOT DETECTED 01/29/21 16:43 Nasal Influenza B PCR NOT DETECTED 01/29/21 16:43 Nasal Parainfluen 1 PCR NOT DETECTED 01/29/21 16:43 Nasal Parainfluen 2 PCR NOT DETECTED 01/29/21 16:43 Nasal Parainfluen 3 PCR NOT DETECTED 01/29/21 16:43 Nasal Parainfluen 4 PCR NOT DETECTED 01/29/21 16:43 Nasal RSV (PCR) NOT DETECTED 01/29/21 16:43 Nasal Screen MRSA (PCR) NEGATIVE (NEGATIVE) 02/09/21 11:30 Nasal B.pertussis DNA PCR NOT DETECTED 01/29/21 16:43 Nasal C.pneumoniae (PCR) NOT DETECTED 01/29/21 16:43 Candida Human Metapneumo PCR NOT DETECTED 01/29/21 16:43 Nasal M.pneumoniae (PCR) NOT DETECTED 01/29/21 16:43 Nasal SARS-CoV-2 (PCR) DETECTED A 01/29/21 16:43 ABX Reporting Has patient been on IV antibiotics over the past 48 hours?: Yes Current Medications - Current Medications Current Medications: Current Medications Generic Name Dose Route Start Last Admin Trade Name Freq PRN Reason Stop Dose Admin Acetaminophen 650 mg 01/29/21 17:09 02/09/21 08:28 Acetaminophen 325 Mg Tablet PO 650 mg Q4HR PRN Administration Pain 1 to 4 Albuterol 2 puffs 01/30/21 08:37 02/10/21 12:04 Albuterol 1 Puff INH 2 puffs Q4HR PRN Administration Wheezing Calcium Carbonate/Glycine 1,250 mg 02/16/21 13:00 02/16/21 13:43 Calcium Carbonate Chew 500 Mg Tablet PO 02/16/21 17:01 1,250 mg Q4H GEORGIE Administration Protocol Chlorhexidine Gluconate 15 ml 02/13/21 21:00 02/16/21 11:35 Chlorhexidine Gluconate 15 Ml Udc PO 15 ml BID GEORGIE Administration Dexamethasone 6 mg 02/10/21 09:00 02/16/21 11:39 Dexamethasone 4 Mg/Ml Vial IVP 6 mg DAILY GEORGIE Administration Enoxaparin Sodium 80 mg 02/13/21 21:00 02/16/21 11:46 Enoxaparin 80 Mg/0.8 Ml Syringe SUBQ 80 mg BID GEORGIE Administration Linezolid 600 mg in 300 mls @ 300 mls/hr 02/09/21 15:00 02/16/21 04:10 Zyvox 600 Mg/300 Ml IV Infused Q12H GEORGIE Infusion Propofol 500 mg in 50 mls @ 4.74 mls/hr 02/13/21 10:00 02/16/21 13:00 Diprivan IV 40 mcg/kg/min .[id number] GEORGIE 18.96 mls/hr Administration Protocol 10 MCG/KG/MIN Norepinephrine Bitartrate 8 mg 250 mls @ 15 mls/hr 02/13/21 13:00 02/16/21 11:35 / Dextrose IV 3 mcg/min .[id number] GEORGIE 5.625 mls/hr Titration Protocol 8 MCG/MIN Cefepime HCl 2 gm/ Sodium 100 mls @ 200 mls/hr 02/14/21 21:00 02/16/21 13:36 Chloride IV 100 mls/hr BID GEORGIE Administration Levofloxacin 500 mg in 100 mls @ 100 mls/hr 02/15/21 16:00 02/15/21 18:45 Levaquin 500 Mg/100 Ml IV Infused Q24H GEORGIE Infusion Midazolam HCl 50 mg in 100 mls @ 6.12 mls/hr 02/15/21 23:45 02/16/21 13:57 Versed Drip IV 0.1 mg/kg/hr .[id number] GEORGIE 15.3 mls/hr Titration Protocol 0.04 MG/KG/HR Lidocaine 1 patch 02/06/21 15:29 02/10/21 19:17 Lidocaine Patch 5% TOP 1 patch DAILY PRN Administration PAIN Lorazepam 0.5 mg 02/11/21 10:33 02/12/21 08:35 Lorazepam 0.5 Mg Tablet PO 0.5 mg Q6H PRN Administration Anxiety Lorazepam 0.5 mg 02/12/21 10:19 02/14/21 16:31 Lorazepam 2 Mg/Ml Vial IVP 0.5 mg Q4H PRN Administration Anxiety Morphine Sulfate 2 mg 02/12/21 10:41 02/14/21 21:29 Morphine 2 Mg/Ml Carpuject IVP 2 mg Q1HR PRN Administration PAIN Ondansetron HCl 4 mg 01/29/21 17:09 01/30/21 22:04 Ondansetron Odt 4 Mg Tablet TL 4 mg Q6HR PRN Administration Nausea / Vomiting Oxycodone HCl 5 mg 01/29/21 17:09 02/09/21 09:39 Oxycodone 5 Mg Tablet PO 5 mg Q4HR PRN Administration Pain 5 to 7 Oxymetazoline HCl 2 sprays 02/07/21 21:10 02/08/21 08:03 Oxymetazoline Hcl 100 Sprays Bottle CANDIDA 2 sprays BID PRN Administration Nasal Congestion Pantoprazole Sodium 40 mg 02/13/21 12:00 02/16/21 11:42 Pantoprazole 40 Mg Vial IVP 40 mg DAILY GEORGIE Administration Polyethylene Glycol 17 gm 02/01/21 09:00 02/16/21 11:48 Polyethylene Glycol 3350 17 Gm Packet PO 17 gm DAILY GEORGIE Administration Sodium Chloride 10 ml 01/29/21 17:09 02/16/21 11:43 Sodium Chloride Flush 0.9% 10 Ml Syringe IVP 30 ml PRN PRN Administration NEEDED PER PROVIDER ORDERS Sodium Chloride 10 ml 01/30/21 01:00 02/16/21 11:50 Sodium Chloride Flush 0.9% 10 Ml Syringe IVP Not Given 0100,0900,1700 GEORGIE Throat Lozenges 1 lozenge 01/30/21 02:25 01/30/21 04:54 Benzocaine/Menthol Lozenge MM 1 lozenge Q2HR PRN Administration Throat pain
[2021-02-16 15:26] LABS: ABG PH 7.49 (7.35-7.45)
[2021-02-16 15:27] LABS: ABG BASE EXCESS 8.1 mmol/L (-2.0-3.0); ABG HCO3 32.4 mmol/L (22.0-26.0); ABG MODE OF VENTILATION ASSIST/CONTROL; ABG OXYGEN SATURATION 91 % (94-98); ABG PCO2 44 mmHg (34-45); ABG PO2 58 mmHg (80-100); ABG RESPIRATORY RATE 20 b/min; ABG TCO2 33.7 MMOL/L (21.0-29.0); ALLEN TEST POSITIVE
[2021-02-16] MEDS ORDERED: HYDROmorphone 0.5 MG/0.5 ML SYRINGE IVP PRN (15:53)
[2021-02-16] MEDS: levoFLOXacin 500 MG/100 ML 500 MG/100 ML BAG IV SCH (17:41)
[2021-02-16] MEDS ORDERED: HYDROmorphone 1 MG/ML CARPUJECT IVP PRN (18:35)
--- NOTE | 2021-02-16 18:38 | ADVANCE CARE PLANNING NOTE ---
Advance Care Planning - Planning Encounter Date: 02/16/21 Time: 18:36 Purpose: Discussed goals of care with patient's son and KASSY Concepcion.Discussed goals of care with patient's son and KASSY Concepcion. Parties in Attendance: Jamey (Son, KASSY) and Deysi (). Decisional Capacity of the Patient: Limited at this time due to intubation, but previously was alert and well oriented. - Diagnosis for Encounter (1) Pneumonia due to COVID-19 virus Summary: This pleasant gentleman was admitted 18 days ago with symptoms of Covid pneumonia.He was visiting from [place]. He experienced fatigue and shortness of breath and upon admission was diagnosed with Covid pneumonia and treatment was started. He made it very clear early in the hospital stay that he did not want to be intubated. As his condition deteriorated last-minute decision was made to change for a trial of short-term of mechanical ventilation given that other supportive measures were not adequately providing oxygen. - Encounter Subjective/Patient's Story: As stated, patient was traveling with family from [place] for vacation and [place] He started to develop symptoms of weakness and shortness of breath and presented to the emergency room where he was diagnosed with Covid pneumonia Objective/Medical Story: He has been treated with remdesivir, and Decadron, and in particular Decadron was extended beyond the typical 10-day course as per the recommendations of infectious disease independent crop consultant via telephone. For the last several days he has not responded well to mechanical ventilation and his PO2 has consistently remained low in the 50s despite aggressive ventilator settings such as FI O2 of 80% and respiratory rate of 20, AC mode, 450 tidal volume. There has been some concern that he also developed bacterial pneumonia and has been on cefepime and linezolid and recently Levaquin was added unfortunately to no avail as his respiratory status has not improved. He is also appeared to be very uncomfortable and agitated despite being on maximum doses of propofol and Versed. Goals of Care: Initially goals of care were DO NOT INTUBATE DO NOT RESUSCITATE but this was briefly changed to allow intubation trial for specifically this COVID-19 infection. However given lack of improvement I have been communicating with patient's son Jamey who is also the power of transactional attorney and he has been consulting with other family members and they are all in agreement at this time that given his lack of improvement, his previously expressed wishes of DO NOT INTUBATE, that the right thing to do would be to transition to comfort care and plan for extubation and withdrawal of care. Plan: The fentanyl drip, continue propofol, Versed and plan for extubation once appropriately sedated. Code Status: Do Not Attempt Resuscitation Time spent on advance care plannin minutes
--- NOTE | 2021-02-16 18:43 | MISCELLANEOUS PROVIDER NOTE ---
Miscellaneous Provider Note - - Note: As per ACP note, patient has not responded to medical treatment including 3 antibiotics for superimposed bacterial and pneumonia on top of COVID-19 pneumonia with mechanical ventilation at near maximum settings. Oxygen saturation has continued to be suboptimal at 58 PO2 on blood gases today, and nearly the same on the day prior. Chest x-ray does not show any evidence of improvement. Patient shows evidence of agitation despite being on propofol and Versed at maximum doses. After discussing with patient's power of civil rights attorney and son Jamey, who has conferred with family members, the decision has been made to transition him to comfort care. We will start of fentanyl drip and withdraw care and extubate once he is appropriately sedated uncomfortable.
[2021-02-16] MEDS ORDERED: NEUTRA-PHOS 250 MG TABLET PO SCH (19:00)
[2021-02-16] MEDS ORDERED: fentaNYL 2,000 MCG/200 ML 2,000 MCG/200 ML BAG IV SCH (19:00)
[2021-02-16 19:04] VITALS: BP 77/59
--- NOTE | 2021-02-16 21:46 | PROVIDER PROGRESS NOTE ---
[employer] Note - [employer] Note [employer] Note: It was brought to my attention that the patient was unresponsive. Upon presentation to bedside patient was unresponsive to tactile and verbal stimuli. Carotid and radial pulses were absent bilaterally. There were no spontaneous breaths noted. On auscultation, heart and lung sounds were absent. Pupils were fixed dilated and unresponsive to light. Patient was pronounced at 21:20 PM on 02/16/2021. Patient's family was at bedside.
--- NOTE | 2021-02-16 21:47 | DISCHARGE SUMMARY ---
Discharge Summary Admit Date: 01/29/21 Discharge Date: 02/16/21 Discharging Provider: Good Delvalle Nchotu Code Status: Do Not Attempt Resuscitation Condition at Discharge: Serious Discharge Disposition: 20 - DIAGNOSES Admission Diagnoses: COVID-19 Hypoxemia Discharge Diagnoses with Status of Each Condition: Acute respiratory failure with hypoxia: Patient COVID-19: Patient HCAP: Patient On mechanically assisted ventilation: Patient Atrial fibrillation: Paroxysmal - HPI History of Present Illness: He says that he is completely healthy and has no major medical issues. His bl ood pressure tends to run low. He does not even take any medicines. His primary care provider is Gómez Shelby who is in private practice with his Susan. They are out of [facility]. They drove her from [place] to see his 's family. His vskwac-wb-quk and qhampnf-by-atj live in [place]. They did not send any hotels in the drove straight through. Stopped only to get past to 3 windows. They arrived at their clgeuu-hm-mdp's house and were doing well until 7 days ago. His became ill first. Then he did 5 days ago. Cough, fever, myalgias, shortness of breath. Lack of appetite. No smell. Now all of them are sick. Both brother and lzhuvd-kc-cle. , nephew. He is so weak that he can barely get up and go to the bathroom. "I never felt like an old man until now". He has been vaccinated with Mariano and Mariano back in July of this year. There is been no change in bowel habits. There is no diarrhea. There is no hemoptysis. No flank pain, urgency, frequency, dysuria or hematuria. In the emergency room his temperature was 38.7. Heart rate 60. Respirations 22. Blood pressure 127/89. He is 89% saturated on room air. His lungs are clear bilaterally. He is in atrial fibrillation. White cell count is 5.3. Hemoglobin 13.8. D-dimer is 348. Sodium 133. BUN 42, creatinine 1.2. AST is 59. SARS COVID-19 is detected. Chest x-ray has patchy bilateral infiltrates consistent with known clinical history of Covid pneumonia. In the emergency allyson he received Decadron and Zofran. - HOSPITAL COURSE Hospital Course: Patient was in the hospital for a total of 18 days. On the day of admission he was on 2 L of oxygen via nasal cannula. He was started on remdesivir and dexamethasone. He completed a 5 day regimen of remdesivir and was on dexamethasone through out his hospital. He was noted to be in atrial fibrillation which he confirmed previous history of. 2D echocardiogram was done on 02/04/2021 and showed an ejection fraction of 65 to 70%. The overall left ventricular systolic function was normal. There was no evidence of aortic stenosis. There was mild aortic valve sclerosis. He was started on Eliquis 5 mg p.o. twice daily due to a Tigre vasc score of 3 Patient's oxygen requirement steadily increased and he was switched to high flow nasal cannula oxygen. He was on high flow for 7 days during which his oxygen requirement increased and his respiratory status worsened. When his white blood cell count started increasing and chest x-rays showed worsening air space disease and consolidation, he was initially placed on cefepime and azithromycin. This was subsequently broadened by addition of Zyvox to cover for healthcare associated pneumonia. He was transferred to the ICU where he was placed on the BiPAP. After 2 days on the BiPAP his respiratory status worsened even further. After extensive conversation with his family he was intubated. And was initially maintained with propofol. Versed and fentanyl were subsequently used to achieve adequate sedation He was on the vent for 3 days but overall his oxygen saturation remained poor. His PO2 on the last ABG done on February 16, 2021 was 58. After further conversation with the patient's family members they have requested to transition to comfort care given his lack of improvement and previous wishes of DO NOT INTUBATE. The patient was extubated but maintained on sedation for comfort. He shortly after extubation. His family ( and son-in-law) were at bedside. - ALLERGIES Allergies/Adverse Reactions: Allergies Allergy/AdvReac Type Severity Reaction Status Date / Time vancomycin Allergy Rash Verified 01/29/21 16:11 - MEDICATIONS Home Medications: Ambulatory Orders Medication Instructions Recorded Confirmed No Known Home Medications 01/29/21 01/29/21 - LABS Result Diagrams: 02/16/21 05:45 02/16/21 16:42 - TIME SPENT Time Spent in Discharge (Minutes): 20
--- NOTE | 2021-02-16 21:59 | Discharge Plan ---
Discharge Plan Problem Reviewed?: Yes Disposition: 20 Condition: Serious Instruction Topics: Enoxaparin injection, Dexamethasone injection No Smoking: If you smoke, Please STOP! Call for help.
== END 2021-02-16 21:20 | disposition expired | DRG 208 ==
LOC: ED 16:06 → MS2 17:09 → ICU 02-09 10:32
PROVIDERS: ADMIT Specialist; ATTEND Internal Medicine
PROC: 3E0333Z Introduction of Anti-inflammatory into Peripheral Vein, Percutaneous Approach (ICD-10-PCS; 2021-01-30)
PROC: XW033E5 Introduction of Remdesivir Anti-infective into Peripheral Vein, Percutaneous Approach, New Technology Group 5 (ICD-10-PCS; 2021-01-30)
PROC: 5A1945Z Respiratory Ventilation, 24-96 Consecutive Hours (ICD-10-PCS; principal; 2021-02-13)
PROC: 0BH17EZ Insertion of Endotracheal Airway into Trachea, Via Natural or Artificial Opening (ICD-10-PCS; 2021-02-13)
PROC: 02HV33Z Insertion of Infusion Device into Superior Vena Cava, Percutaneous Approach (ICD-10-PCS; 2021-02-13)
PROC: B548ZZA Ultrasonography of Superior Vena Cava, Guidance (ICD-10-PCS; 2021-02-13)
DX: U07.1 COVID-19 (principal); R09.02 Hypoxemia; I50.9 Heart failure, unspecified; Z20.822 Contact with and (suspected) exposure to COVID-19; J12.82 Pneumonia due to coronavirus disease 2019; J96.01 Acute respiratory failure with hypoxia; J15.9 Unspecified bacterial pneumonia; Y95 Nosocomial condition; I48.0 Paroxysmal atrial fibrillation; I95.9 Hypotension, unspecified; R00.1 Bradycardia, unspecified; R60.0 Localized edema; Z66 Do not resuscitate; Z51.5 Encounter for palliative care; Z87.891 Personal history of nicotine dependence
CPT/HCPCS: 36415; 36600; 71045; 80048; 80053; 82306; 82330; 82803; 83605; 83735; 83880; 84100; 84132; 84134; 84443; 84478; 85025; 85379; 86140; 87040; 87150; 87631; 93005; 93306; 93970; 94002; 94003; 94640; 94660; 96374; 99285; A9270; C9399; J0330; J1170; J1200; J1650; J2020; J2060; J3010; J7120; J8540; Q0162; 0202U; 94770